=== PATIENT | male | born 1955 | race Caucasian/White ===

== ENCOUNTER 2023-02-08 07:51 | Outpatient (OUT) | payer MEDICARE, OTHER, SELFPAY ==
[2023-02-08 08:46] LABS: Basophils Percent Auto 0.4 % (0.2-2.0); Eosinophils Percent Auto 0.4 % (0.9-7.0); Hemoglobin 12.4 g/dL (14.0-18.0); Immature Granulocytes Abs Auto 0.02 10^3/uL (0.00-0.03); Immature Granulocytes Pct Auto 0.8 % (0.0-0.5); Mean Corpuscular Hemoglobin 29.6 pg (25.9-34.0); Mean Corpuscular Volume 95.5 fL (80.0-94.0); Mean Platelet Volume 9.4 fL (9.5-13.5); Monocytes Absolute Auto 0.5 10^3/uL (0.3-0.8); Monocytes Percent Auto 18.3 % (1.7-12.0); Neutrophils Absolute Auto 1.1 10^3/uL (1.4-6.5); Neutrophils Percent Auto 43.1 % (43.0-75.0); Platelet Count 168 10^3/uL (150-450); Red Blood Count 4.19 10^6/uL (4.70-6.10); Red Cell Distribution Width 13.9 % (11.0-15.0); White Blood Count 2.6 10^3/uL (4.0-11.0)
[2023-02-08 09:32] LABS: Bilirubin Urine NEGATIVE (NEGATIVE); Blood Urine NEGATIVE (NEGATIVE); Clarity Urine CLEAR (CLEAR); Color Urine YELLOW (YELLOW); Glucose Urine UA 500 mg/dL (NEGATIVE); Ketones Urine NEGATIVE (NEGATIVE); Leukocyte Esterase Urine NEGATIVE (NEGATIVE); Nitrite Urine NEGATIVE (NEGATIVE); Protein Urine TRACE mg/dL (NEG/TRACE); Specific Gravity Urine >=1.030 (1.005-1.025); Urobilinogen Urine 0.2 EU/dL (0.2-1.0); pH Urine 5.5 (5.0-9.0)
[2023-02-08 09:40] LABS: Alanine Aminotransferase 29 U/L (16-63); Albumin Globulin Ratio 1.2; Albumin Level 4.2 g/dL (3.4-5.0); Alkaline Phosphatase 55 U/L (46-116); Anion Gap 11.4; Aspartate Amino Transferase 11 U/L (15-37); BUN Creatinine Ratio 24.1; Bilirubin Total 0.7 mg/dL (0.2-1.0); Calcium 8.7 mg/dL (8.5-10.1); Carbon Dioxide 24.7 mmol/L (21.0-32.0); Chloride 106 mmol/L (98-107); Chol HDL Ratio 3.6; Cholesterol 135 mg/dL (<=200); Estimated GFR (African America >60 (>=60); Estimated GFR (Non-African Ame >60 (>=60); Globulin 3.6 g/dL; Glucose 132 mg/dL (74-106); HDL Cholesterol 38 mg/dL (40-60); Microalbumin Urine Random 7.4 mg/dL (<=30.0); Potassium 4.1 mmol/L (3.5-5.1); Sodium 138 mmol/L (136-145); Total Protein 7.8 g/dL (6.4-8.2); Triglycerides 108 mg/dL (<=150); VLDL CHOLESTEROL 21.6 mg/dL
[2023-02-08 09:45] LABS: Estimated Average Glucose 163 mg/dL; Glycohemoglobin A1C 7.3 % (4.5-6.2)
[2023-02-08 09:59] LABS: Bacteria Urine NONE SEEN #/HPF (NONE SEEN); Crystals Seen? None Seen #/HPF (None Seen); Mucus Urine NONE SEEN (NONE SEEN); RBC Urine NONE SEEN #/HPF (0-2); Squamous Epithelial Cell Urine FEW #/LPF (NONE/RARE); WBC Urine NONE SEEN #/HPF (NONE SEEN)
[2023-02-08 10:00] LABS: Cast Seen? NONE SEEN #/LPF (NONE SEEN); Urine Culture Indicated NO
[2023-02-08 10:01] LABS: Prostate Specific Antigen Scrn 0.95 ng/mL (<=4.00)
== END 2023-02-08 07:52 | disposition home or self-care (01) ==
LOC: LAB 07:57
PROVIDERS: PCP Nurse Practitioner; Visit Provider Nurse Practitioner
DX: E11.9 Type 2 diabetes mellitus without complications (principal); Z12.5 Encounter for screening for malignant neoplasm of prostate
CPT/HCPCS: 36415; 80053; 80061; 81001; 82043; 83036; 85025; G0103

== ENCOUNTER 2023-02-08 08:02 | Outpatient (OUT) | payer MEDICARE, OTHER, SELFPAY ==
[2023-02-08 09:42] LABS: Lactate Dehydrogenase 160 U/L (85-227)
== END 2023-02-08 08:03 | disposition home or self-care (01) ==
LOC: LAB 08:04
PROVIDERS: PCP Nurse Practitioner
DX: E11.9 Type 2 diabetes mellitus without complications (principal); Z12.5 Encounter for screening for malignant neoplasm of prostate; C85.19 Unspecified B-cell lymphoma, extranodal and solid organ sites; D72.819 Decreased white blood cell count, unspecified
CPT/HCPCS: 36415; 80053; 80061; 81001; 82043; 83036; 83615; 85025; G0103

== ENCOUNTER 2023-10-11 08:51 | Outpatient (OUT) | payer MEDICARE, OTHER, SELFPAY ==
[2023-10-11 12:53] LABS: Estimated Average Glucose 183 mg/dL
== END 2023-10-11 08:52 | disposition home or self-care (01) ==
LOC: LAB 08:53
PROVIDERS: PCP Nurse Practitioner; Visit Provider Nurse Practitioner
DX: E11.9 Type 2 diabetes mellitus without complications (principal)
CPT/HCPCS: 36415; 83036

== ENCOUNTER 2023-10-29 08:08 | Outpatient (OUT) | payer MEDICARE, OTHER, SELFPAY ==
--- NOTE | 2023-10-29 08:10 | MR_ITS ---
The [address] [address] Patient Name: DIMPLE FARFAN MRN: [id number] date: 1955 Sex: M Assigned Patient Location: MRI Current Patient Location: MRI Accession/Order Number: [id number] Exam Date: 10/29/2023 08:50 Report Date: 10/29/2023 15:57 At the request of: MARI CARRERA Procedure: MR knee RT wo con EXAM: MR knee RT wo con REASON FOR EXAM: Posterior Right Knee Pain M25.561. TECHNIQUE: Multiplanar, multisequence imaging of the right knee was performed without contrast COMPARISON: None. FINDINGS: Laterally, the iliotibial band, fibular collateral ligament, popliteus tendon and biceps tendon are intact. The ACL appears intact with advanced intermediate signal as well as intrasubstance ganglion cystic changes. No tear identified. The lateral meniscus demonstrates normal morphology with some globular intrasubstance signal, which does not meet MRI criteria for tear. Low to intermediate grade chondrosis of the lateral compartment with marginal osteophytes. Medially, the medial collateral ligament is intact. The PCL is intact with mild thickening and intermediate signal. There is free edge fraying of the body posterior horn the lateral meniscus. Near complete radial tear of the posterior horn root attachment the medial meniscus. Moderate meniscal extrusion. Diffuse intermediate to high-grade chondrosis of the medial compartment. The extensor mechanism is intact. Low to intermediate grade chondrosis the patellofemoral cartilage. The bone marrow signal is without fracture. Moderate size joint effusion decompresses into a Meza's cyst. The regional musculature is without muscle strain or tendon tear. MR/MR knee RT wo con IMPRESSION: 1. Complex medial meniscal tear. 2. Advanced mucoid degeneration/intrasubstance ganglion cystic changes of the ACL. Mild mucoid degeneration the PCL. No tear. 3. 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 4. Joint effusion and Meza's cyst Electronically authenticated by: SLAVA HESS Date: 10/29/2023 15:57
--- OUTSIDE RECORDS SUMMARY | 2023-10-29 08:10 | XMS_ITS | CCD ---
Author Organization [facility] Care Team Providers Care Numerical Analysis Group Manager Name Role Phone Nadir Naylor Unavailable Unavailable Norbert Rivera Unavailable Unavailable Nadir Naylor Unavailable Unavailable MD Jac Dixon Attending Provider MD Nadir Naylor Referring Provider NON STAFF Primary Care Provider Unavailabl e RADHA HILLA Velma Primary Care Physician MD Jac Dixon Attending Provider MD Nadir Naylor Referring Provider NON STAFF Primary Care Provider Unavailabl e AICHHOLZ, MEDICINE ASSISTANT ERENDIRA Consulting Unavailable AICHHOLZ, MEDICINE ASSISTANT ERENDIRA Attending Unavailable AICHHOLZ, MEDICINE ASSISTANT ERENDIRA Admitting Unavailable AICHHOLZ, MEDICINE ASSISTANT ERENDIRA Primary Care Unavailable AICHHOLZ, MEDICINE ASSISTANT ERENDIRA Primary Care Unavailable AICHHOLZ, MEDICINE ASSISTANT ERENDIRA Consulting Unavailable AICHHOLZ, MEDICINE ASSISTANT ERENDIRA Attending Unavailable AICHHOLZ, MEDICINE ASSISTANT ERENDIRA Admitting Unavailable AICHHOLZ, MEDICINE ASSISTANT ERENDIRA Primary Care Unavailable FERN, AHMAD Admitting Unavailable FERN, AHMAD Consulting Unavailable FERN, AHMAD Attending Unavailable NILL ., DR MILLER Admitting Unavailable NILL ., DR MILLER Consulting Unavailable NILL ., DR MILLER Attending Unavailable AICHHOLZ, MEDICINE ASSISTANT EREDNIRA Primary Care Unavailable NANY ORTIZ Consulting Unavailable ADELE JOHNSON Consulting Unavailable DAMSCHRODER, LYNN Attending Unavailable AICHHOLZ, MEDICINE ASSISTANT ERENDIRA Primary Care Unavailable LYNN GARCIA Admitting Unavailable LYNN GARCIA Consulting Unavailable AICHHOLZ, MEDICINE ASSISTANT ERENDIRA Consulting Unavailable AICHHOLZ, MEDICINE ASSISTANT ERENDIRA Attending Unavailable AICHHOLZ, MEDICINE ASSISTANT ERENDIRA Admitting Unavailable AICHHOLZ, MEDICINE ASSISTANT ERENDIRA Primary Care Unavailable Dr. Nadir Naylor Attending Unavail able PCP, Pt States None Referring Unavailable UNKNOWN, PCP Primary Care Unavailable UNKNOWN, PCP Primary Care Unavailable Rolando, Dr. Nadir Gutierrez Attending Unavail able PCP, Pt States None Referring Unavailable Rolando, Dr. Nadir Gutierrez Referring Unavail able SELENA CALDWELL Attending Unavailable UNKNOWN, PCP Primary Care Unavailable Nadir Naylor Referring Unavailable NON STAFF Primary Care Unavailable Jac Dixon R Attending Unavailable DestinyJaja aguileraleena R Admitting Unavailable Miguel PINO R Attending Unavailable PINOMiguel R Attending Unavailable NILL, Angela R Attending Unavailable NILL, Angela R Attending Unavailable AICHHOLZ, ERENDIRA Attending Unavailable AICHHOLZ, ERENDIRA Attending Unavailable RUSLIAT OBANDO S Attending Unavailable AICHHOLZ, ERENDIRA Attending Unavailable Allergies Allergy Classification Reported Allergen(s) Allergy Type Date of Onset Reaction(s) Facility Unclassified (1 source) Propensity to adverse reactions to drug 1 [facility] Unclassified (1 source) Propensity to adverse reactions to drug 1 [facility] (1 source) Propensity to adverse reactions to drug 1 [facility] (1 source) Propensity to adverse reactions to drug 1 [facility] (1 source) Propensity to adverse reactions to drug 1 [facility] (1 source) Propensity to adverse reactions to drug 1 [facility] (3 sources) Sulfonamides (Antibiotic); Translations: [sulfa drugs] Drug allergy Sweating (finding), Fatigue (finding) [facility] (1 source) Propensity to adverse reactions to drug 1 [facility] (1 source) Propensity to adverse reactions to drug 1 [facility] (1 source) Sulfonamides (Antibiotic) Drug allergy (disorder) 7 [facility] (1 source) Propensity to adverse reactions to drug 1 [facility] (1 source) Sulfonamides (Antibiotic) Drug allergy (disorder) 3 [facility] Repository Medications Current Medications Medication Drug Class(es) Dates Sig (Normalized) Sig (Original) aspirin 81 mg oral tablet (11 sources) Platelet Aggregation Inhibitor, Nonsteroidal Anti-inflammatory Drug Start: 11-02-2020 [id number] Medication aspirin aspirin 300 mg 11/02/2020 Active (Outside) Start: 02-15-2020 take 1 tablet by mouth once da kathrine aspirin 81 mg oral tablet 81 mg = 1 tab(s), Oral, Daily Start Date: 02/15/20 Status: Ordered atorvastatin 20 mg oral tablet (11 sources) HMG-CoA Reductase Inhibitor Start: 10-17-2021 take 20 mg by mouth once daily Atorvastatin Active 20 MG PO Daily October 17, 2021 12:51pm Start: 11-02-2020 [id number] Medicat ion atorvastatin atorvastatin 40 mg 11/02/2020 Active (Outside) Start: 02-15-2020 take 1 tablet by justine th once daily atorvastatin 10 mg Tab 10 mg = 1 tab(s), Oral, Daily Start Date: 02/15/20 Status: Ordered dapagliflozin 5 mg oral tablet (11 sources) Sodium-Glucose Cotransporter 2 Inhibitor Start: 11-02-2020 take 1 tablet by mouth once daily Dapagliflozin (Farxiga) 5 mg Tablet Active 5 MG PO Daily October 16, 2021 11:00pm Start: 02-15-2020 take 1 tablet by mouth once da kathrine Farxiga 10 mg oral tablet 10 mg = 1 tab(s), Oral, Daily Start Date: 02/15/20 Status: Ordered ezetimibe 10 mg oral tablet (10 sources) Dietary Cholesterol Absorption Inhibitor Start: 11-02-2020 take 10 mg by mouth once daily Ezetimibe Active 10 MG PO Daily October 16, 2021 11:00pm Start: 02-15-2020 take 40 mg by mouth once daily ezetimibe 40 mg, Oral, Daily Start Date: 02/15/20 Status: Ordered finasteride 5 mg oral tablet (11 sources) 5-alpha Reductase Inhibitor Start: 11-02-2020 take 1 tablet by mouth once daily finasteride 5 mg Tab 5 mg = 1 tab(s), Oral, Daily, # 90 tab(s), Refills(s) 3, Pharmacy: [facility], 183, cm, 02/19/22 9:42:00 EDT, Height/Length Dosing, 89, kg, 02/19/22 9:42:00 EDT, Weight Dosing Start Date: 06/13/22 Status: Ordered ketoconazole 20 mg/ml medicated shampoo (7 sources) Azole Antifungal Start: 02-26-2023 [id number] Medica tion ketoconazole 2 % shampoo ketoconazole 2 % shampoo 2 % 0 other 02/26/2023 Active (Current) Start: 10-17-2021 Ketoconazole A ctive 1 APPLIC TOPICAL Twice a Week October 17, 2021 12:51pm Start: 09-12-2021 [id number] Medicat ion ketoconazole 2 % shampoo ketoconazole 2 % shampoo 2 % 1 Application topically daily 09/12/2021 Active (Current) lisinopril 20 mg oral tablet (11 sources) Angiotensin Converting Enzyme Inhibitor Start: 11-02-2020 take 20 mg by mouth once daily Lisinopril Active 20 MG PO Daily October 16, 2021 11:00pm Start: 02-15-2020 take 40 mg by mouth once daily lisinopril 40 mg, Oral, Daily Start Date: 02/15/20 Status: Ordered metFORMIN hydrochloride 1000 mg oral tablet (2 sources) Biguanide Start: 02-19-2022 take 1000 mg by mouth twice daily metformin 1,000 mg, Oral, BID, Refills(s) 0 Start Date: 02/19/22 Status: Ordered Start: 02-19-2022 metformin Oral , Refills(s) 0 Start Date: 02/19/22 Status: Ordered metFORMIN hydrochloride 1000 mg / SITagliptin 50 mg oral tablet (10 sources) Biguanide, Dipeptidyl Peptidase 4 Inhibitor Start: 10-17-2021 take 1 tablet by mouth twice daily Sitagliptin-Metformin (Janumet) 50-1,000 mg Tablet Active 1 TAB PO Twice daily October 17, 2021 12:51pm Start: 11-02-2020 [id number] Medicat ion sitagliptin 50 mg-metformin 500 mg tablet Janumet 50-500 mg 11/02/2020 Active (Outside) Start: 02-15-2020 Janumet 50 mg/ 1000 mg oral tablet 1 tab(s), Oral Start Date: 02/15/20 Status: Ordered pioglitazone 30 mg oral tablet (2 sources) Peroxisome Proliferator Receptor alpha Agonist, Peroxisome Proliferator Receptor gamma Agonist, Thiazolidinedione Start: 02-19-2022 take 30 mg by mouth once daily pioglitazone 30 mg, Oral, Daily, Refills(s) 0 Start Date: 02/19/22 Status: Ordered Start: 02-19-2022 pioglitazone O ral, Daily, Refills(s) 0 Start Date: 02/19/22 Status: Ordered tadalafil 20 mg oral tablet (2 sources) Phosphodiesterase 5 Inhibitor Start: 02-19-2022 tadalafil 20 mg Tab 20 mg = 1 tab(s), Oral, As Directed, # 30 tab(s), Refills(s) 3, Pharmacy: [id number], 183, cm, 02/19/22 9:42:00 EDT, Height/Length Dosing, 89, kg, 02/19/22 9:42:00 EDT, Weight Dosing Start Date: 02/19/22 Status: Ordered tamsulosin hydrochloride 0.4 mg oral capsule (11 sources) alpha-Adrenergic Hansel Start: 11-02-2020 take 1 capsule by mouth once daily tamsulosin 0.4 mg Cap 0.4 mg = 1 cap(s), Oral, Daily, # 90 cap(s), Refills(s) 3, Pharmacy: [facility], 183, cm, 02/19/22 9:42:00 EDT, Height/Length Dosing, 89, kg, 02/19/22 9:42:00 EDT, Weight Dosing Start Date: 06/13/22 Status: Ordered Problems Problem Classification Problem Date Documented Date Episodic/Chronic Diabetes mellitus without complication (7 sources) Diabetes mellitus; Translations: [Type 2 diabetes mellitus without complications] Onset: 07-17-2022 02-11-2020 Chronic Diabetes mellitus without complication (3 sources) Glycosuria; Translations: [Glycosuria] Onset: 02-19-2022 Episodic Diseases of white blood cells (5 sources) Leukopenia; Translations: [Decreased white blood cell count, unspecified] Onset: 08-13-2022 10-19-2022 Chronic Disorders of lipid metabolism (6 sources) Hypercholesterolemia; Translations: [Hyperlipidemia] Onset: 01-13-2022 02-11-2020 Chronic Diverticulosis and diverticulitis (1 source) Diverticulosis of large intestine without perforation or abscess without bleeding; Translations: [DVRTCLOS LG INT NO PERF/ABSC W/O BL] Onset: 11-15-2022 Chronic Essential hypertension (4 sources) Hypertensive disorder; Translations: [Essential (primary) hypertension] Onset: 11-15-2022 02-11-2020 Chronic Genitourinary symptoms and ill-defined conditions (2 sources) Blood in urine 02-11-2020 Episodic Hyperplasia of prostate (4 sources) Benign prostatic hypertrophy with outflow obstruction; Translations: [Benign prostatic hyperplasia with lower urinary tract symptoms] Onset: 02-19-2022 Chronic Inflammatory conditions of male genital organs (2 sources) Prostatitis 02-11-2020 Episodic Malaise and fatigue (1 source) Other fatigue; Translations: [OTHER FATIGUE] Onset: 09-21-2022 Episodic Neoplasms of unspecified nature or uncertain behavior (20 sources) Neoplasm of uncertain behavior of skin Onset: 11-02-2020 Episodic Non-Hodgkin`s lymphoma (20 sources) Unspecified B-cell lymphoma, unspecified site; 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] Onset: 05-31-2021 10-19-2021 Chronic Other aftercare (1 source) nursing home (current) use of aspirin; Translations: [[facility] CURRENT USE OF ASPIRIN] Onset: 11-15-2022 Episodic Other aftercare (1 source) Other intermediate (current) drug therapy; Translations: [[employer] CURRENT DRUG THERAPY] Onset: 11-15-2022 Episodic Other aftercare (1 source) nursing home (current) use of oral hypoglycemic drugs; Translations: [[facility] USE ORAL HYPOGLYCEMIC DX] Onset: 11-15-2022 Episodic Other and unspecified benign neoplasm (6 sources) Hemangioma of skin and subcutaneous tissue Onset: 08-16-2021 Episodic Other and unspecified benign neoplasm (4 sources) Melanocytic nevi of unspecified part of face Onset: 09-17-2022 Episodic Other and unspecified benign neoplasm (3 sources) Melanocytic nevi of trunk Onset: 09-18-2022 Episodic Other and unspecified benign neoplasm (2 sources) Melanocytic nevi of unspecified upper limb, including shoulder Onset: 09-18-2022 Episodic Other and unspecified benign neoplasm (2 sources) Other benign neoplasm of skin, unspecified Onset: 09-18-2022 Episodic Other and unspecified benign neoplasm (1 source) Melanocytic nevi of right upper limb, including shoulder Onset: 03-12-2023 Episodic Other and unspecified benign neoplasm (1 source) Melanocytic nevi of left upper limb, including shoulder Onset: 03-12-2023 Episodic Other inflammatory condition of skin (20 sources) Seborrhea capitis Onset: 09-11-2021 Episodic Other inflammatory condition of skin (5 sources) Seborrheic dermatitis, unspecified Onset: 09-12-2021 Episodic Other male genital disorders (3 sources) Male erectile dysfunction, unspecified; Translations: [Erectile dysfunction] Onset: 02-19-2022 Chronic Other non-epithelial cancer of skin (2 sources) Personal history of other malignant neoplasm of skin Onset: 09-18-2022 Episodic Other nutritional; endocrine; and metabolic disorders (1 source) Overweight in adulthood with body mass index of 25 or more but less than 30 10-30-2022 Episodic Other screening for suspected conditions (not mental disorders or infectious disease) (16 sources) Encounter for screening for malignant neoplasm of skin; Translations: [Screening for malignant neoplasm of colon done] Onset: 08-16-2021 Episodic Other skin disorders (15 sources) Actinic keratosis Onset: 05-31-2021 Episodic Other skin disorders (12 sources) Other melanin hyperpigmentation Onset: 05-31-2021 Episodic Other skin disorders (6 sources) Other seborrheic keratosis Onset: 08-16-2021 Episodic Other skin disorders (6 sources) Scar conditions and fibrosis of skin Onset: 08-16-2021 Episodic Residual codes; unclassified (1 source) Family history of cancer; Translations: [Family history of malignant neoplasm of prostate] Onset: 02-19-2022 Episodic Residual codes; unclassified (4 sources) Decreased libido; Translations: [DECREASED LIBIDO] Onset: 09-17-2022 Episodic Unclassified (1 source) Patient encounter status 10-30-2022 Unclassified (1 source) Unspecified B-cell lymphoma, extranodal and solid organ sites; Translations: [Unspecified B-cell lymphoma, extranodal and solid organ sites] Onset: 02-14-2023 Results Test Name Value Interpretation Reference Range Facility Lab Report[facility] 02-27-2023 Lab Reports [id number] D:127 [facility] Ambulatory Visit Summaryon 0 02-25-2023 Ambulatory Visit Summary MACARIO FARFAN :1955 Visit Date:02/25/2023 Ambulatory Visit Instructions Your Diagnosis BPH with urinary obstruction Glucosuria Erectile dysfunction Family history of prostate cancer Tests Performed Urnls Dip Stick Auto w/o Microscopy POC 19823 Your Care Team Attending Physician - Miguel PINO MD Primary Care Physician - ERENDIRA HILL CNP This Is Your Medications List finasteride (finasteride 5 mg Tab) tamsulosin (tamsulosin 0.4 mg Cap) Contact prescribing physician if questions or concerns aspirin (aspirin 81 mg oral tablet) atorvastatin (atorvastatin 10 mg Tab) dapagliflozin (Farxiga 10 mg oral tablet) ezetimibe (ezetimibe 10 mg Tab) lisinopril metformin pioglitazone tadalafil (tadalafil 20 mg Tab) Procedures Performed Cystoscopy (05/02/2010), CE - Cataract extraction, Colonoscopy, LASIK, Meniscal repair, Nasal polypectomy, Nasal polypectomy, Ts - Tonsillectomy. Discharge Vitals Heart Rate (Peripheral) 70 Respiratory Rate 16 Blood Pressure 122/84 Height 183 cm Height 72 in Weight 91.5 kg Weight 201.3 lb BMI 27.32 What to do next Scheduled Follow-Up Appointments Saturday 9:15 AM EDT With: MARILIN RUIZ, Miguel Perez Where: [facility] Patient Educationon 02-26-20 Patient Education Urology Benign Prostatic Hyperplasia Benign prostatic hyperplasia (BPH) is an enlarged prostate gland that is caused by the normal aging process. The prostate may get bigger as a man gets older. The condition is not caused by cancer. The prostate is a walnut-sized gland that is involved in the production of semen. It is located in front of the rectum and below the bladder. The bladder stores urine. The urethra carries stored urine out of the body. An enlarged prostate can press on the urethra. This can make it harder to pass urine. The buildup of urine in the bladder can cause infection. Back pressure and infection may progress to bladder damage and kidney (renal) failure. What are the causes? This condition is part of the normal aging process. However, not all men develop problems from this condition. If the prostate enlarges away from the urethra, urine flow will not be blocked. If it enlarges toward the urethra and compresses it, there will be problems passing urine. What increases the risk? This condition is more likely to develop in men older than 50 years. What are the signs or symptoms? Symptoms of this condition include: ? Getting up often during the night to urinate. ? Needing to urinate frequently during the day. ? Difficulty starting urine flow. ? Decrease in size and strength of your urine stream. ? Leaking (dribbling) after urinating. ? Inability to pass urine. This needs immediate treatment. ? Inability to completely empty your bladder. ? Pain when you pass urine. This is more common if there is also an infection. ? Urinary tract infection (UTI). How is this diagnosed? This condition is diagnosed based on your medical history, a physical exam, and your symptoms. Tests will also be done, such as: ? A post-void bladder scan. This measures any amount of urine that may remain in your bladder after you finish urinating. ? A digital rectal exam. In a rectal exam, your health care provider checks your prostate by putting a lubricated, gloved finger into your rectum to feel the back of your prostate gland. This exam detects the size of your gland and any abnormal lumps or growths. ? An exam of your urine (urinalysis). ? A prostate specific antigen (PSA) screening. This is a blood test used to screen for prostate cancer. ? An ultrasound. This test uses sound waves to electronically produce a picture of your prostate gland. Your health care provider may refer you to a specialist in kidney and prostate diseases (urologist). How is this treated? Once symptoms begin, your health care provider will monitor your condition (active surveillance or watchful waiting). Treatment for this condition will depend on the severity of your condition. Treatment may include: ? Observation and yearly exams. This may be the only treatment needed if your condition and symptoms are mild. ? Medicines to relieve your symptoms, including: ? Medicines to shrink the prostate. ? Medicines to relax the muscle of the prostate. ? Surgery in severe cases. Surgery may include: ? Prostatectomy. In this procedure, the prostate tissue is removed completely through an open incision or with a laparoscope or robotics. ? Transurethral resection of the prostate (TURP). In this procedure, a tool is inserted through the opening at the tip of the penis (urethra). It is used to cut away tissue of the inner core of the prostate. The pieces are removed through the same opening of the penis. This removes the blockage. ? Transurethral incision (TUIP). In this procedure, small cuts are made in the prostate. This lessens the prostate's pressure on the urethra. ? Transurethral microwave thermotherapy (TUMT). This procedure uses microwaves to create heat. The heat destroys and removes a small amount of prostate tissue. ? Transurethral needle ablation (TUNA). This procedure uses radio frequencies to destroy and remove a small amount of prostate tissue. ? Interstitial laser coagulation (ILC). This procedure uses a laser to destroy and remove a small amount of prostate tissue. ? Transurethral electrovaporization (TUVP). This procedure uses electrodes to destroy and remove a small amount of prostate tissue. ? Prostatic urethral lift. This procedure inserts an implant to push the lobes of the prostate away from the urethra. Follow these instructions at home: ? Take wqvi-[id number] and prescription medicines only as told by your health care provider. ? Monitor your symptoms for any changes. Contact your health care provider with any changes. ? Avoid drinking large amounts of liquid before going to bed or out in public. ? Avoid or reduce how much caffeine or alcohol you drink. ? Give yourself time when you urinate. ? Keep all follow-up visits. This is important. Contact a health care provider if: ? You have unexplained back pain. ? Your symptoms do not get better with treatment. ? You develop side effects from the medicine (more content not included)... Normal [facility] Urology Office/Clinic Noteon 02-25-2023 Urology Office/Clinic Note Chief Complaint BPH with urinary obstruction HPI Staff 1 year with PSA. Previous dx of BPH with urinary obstruction, glucosuria, ED and family hx of prostate cancer (uncle). Previous PSA done 01/10/22 was 0.81 and current done 02/08/23 is 0.95. Finasteride 5mg therapy QD and Tamsulosin 0.4mg QD. Pt needs his medications refilled. Dysuria: no Incomplete bladder emptying: no Hematuria: no Frequency: no Urgency: no Nocturia: pt usually does not get up Stream: no straining or intermittency Leaking: no Post void dripping: no Wearing pads/ Depends: no Urge incontinence: no Stress incontinence: no Incontinence without Sensory Awareness: no Abdominal pain: no Flank pain: no Sexual complaints: no History of Present Illness Tests reviewed: reviewed UA, PSA I have reviewed the previous health record information and history for this patient from Dr. Pino. I have reviewed and verified the staff HPI to be accurate for this encounter. There have been no associated fever, chills, flank pain, or blood in the urine. Denies any urinary infections since last encounter. Review of Systems PHQ Score Initial Depression Screen Score: 0 ROS - Provider Constitutional: denies weight loss, denies hot flashes. Eyes: denies eye problems. Gastrointestinal: denies nausea, denies vomiting. Cardiovascular: denies chest pain or angina. Integumentary: no dryness Musculoskeletal: denies musculoskeletal symptoms. ENMT: denies otolaryngeal symptoms. Respiratory: no shortness of breath. Heme/Lymph: denies easy bleeding tendency, denies easy bruising tendency. Psychiatric: no confusion, no anxiety. Genitourinary: See HPI. Physical Exam Vitals & Measurements HR: 70(Peripheral) RR: 16 BP: 122/84 HT: 72 in HT: 183 cm WT: 91.5 kg WT: 201.3 lb BMI: 27.32 General Appearance: alert, no distress, well nourished, well developed male. Genitourinary: normal scrotum, normal testes, normal urethra, normal epididymis, normal vas deferens/spermatic cord. Flank Pain: none. Bladder: nonpalpable. Assessment/Plan 1. BPH with urinary obstruction (N40.1: Benign prostatic hyperplasia with lower urinary tract symptoms) Good, steady stream. UA today negative for blood and infection. PSA 12/08/20 - 0.50 01/10/22- 0.81 (Finasteride effect = 1.62) 02/08/23 - 0.95 (Finasteride effect = 1.90) Pt is currently taking Tamsulosin 0.4mg QD and Finasteride 5mg QD. Pt to continue these medications and call if he needs refills. All questions/concerns were discussed. Pt to call the office if he encounters any issues prior. Pt acknowledges understanding. 2. Glucosuria (R81: Glycosuria) UA done today shows 500mg/dl today. Chronic. Patient is diabetic. 3. Erectile dysfunction (N52.9: Male erectile dysfunction, unspecified) Pt is currently taking Tadalafil 20mg PRN. 4. Family history of prostate cancer (Z80.42: Family history of malignant neoplasm of prostate) Uncle, was dx in his 80's. Had prostatectomy. [1] Follow-up With When Contact Information MARILIN RUIZ, Miguel Perez, URL [facility] [address], [place] [address]- [phone] Additional Instructions: 1 yr w/ PSA Patient Education Benign Prostatic Hyperplasia IPrema, personally scribed for Dr. Pino on 02/25/2023 09:28:50. . Documentation recorded by the scribePrema, accurately reflects the services(s) I performed and decisions made by me. Authenticated by Dr. Pino on 02/25/2023 09:31:03. Problem List/Past Medical History Ongoing BMI 27.0-27.9,adult BPH with urinary obstruction Diabetes Erectile dysfunction Family history of prostate cancer Glucosuria Hematuria Hypercholesterolemia Hyperlipidemia Hypertension Hypertensive disorder Leukopenia Primary cutaneous B-cell lymphoma Prostatitis Screening for malignant neoplasm of colon Historical High cholesterol Procedure/Surgical History Cystoscopy (05/02/2010), CE - Cataract extraction, Colonoscopy, LASIK, Meniscal repair, Nasal polypectomy, Nasal polypectomy, Ts - Tonsillectomy. Medications aspirin 81 mg oral tablet, 81 mg= 1 tab(s), Oral, Daily atorvastatin 10 mg Tab, 10 mg= 1 tab(s), Oral, Daily ezetimibe 10 mg Tab Farxiga 10 mg oral tablet, 10 mg= 1 tab(s), Oral, Daily finasteride 5 mg Tab, 5 mg= 1 tab(s), Oral, Daily, 3 refills lisinopril, 40 mg, Oral, Daily metformin, 1000 mg, Oral, BID pioglitazone, 30 mg, Oral, Daily tadalafil 20 mg Tab, 20 mg= 1 tab(s), Oral, As Directed, 3 refills tamsulosin 0.4 mg Cap, 0.4 mg= 1 cap(s), Oral, Daily, 3 refills Allergies sulfa drugs (Sweats, Fatigue) Social History Alcohol - Denies Alcohol Use, 10/30/2022 Substance Abuse - Denies Substance Abuse, 10/30/2022 Tobacco - Denies Tobacco Use, 02/11/2020 Never (less than 100 in lifetime) Tobacco Use:. Never Smokeless Tobacco Use:., 10/30/2022 Family History Dementia: Mother. Disorder of heart valve (more content not included)... Normal [facility] Comment on above: Result Comment: Elec tronically Signed By: Miguel PINO MD\.br\Date and Time Signed: 02/25/23 09:31 EDT\.br\Electronically Co-Signed By: Prema Hernandez\.br\Date and Time Co-Signed: 02/25/23 09:29 EDT Outside Colonoscopyon 2022 Outside Colonoscopy [id number] D:127 Normal [facility] Reminderson 11-15-2022 Reminders - From: Brittany Wallis LPN To: GSN - Clinical; Sent: 11/15/2022 10:17:55 EDT Show up: 10/14/2032 07:00:00 EST Subject: colonoscopy recall Due Date/Time: 11/14/2032 07:00:00 EDT Reminder/Recall Patient is due for screening colonoscopy 11/14/2032. Normal [facility] POINT OF CARE GLUCOSEon 11-03 Glucose [Mass/Vol] 119 mg/dL Critically high 74-[address] [facility] Comment on above: Performed By: #### P OCGLUC #### [facility] [address] [place] [address] Dr. Anil Hayes Consent for Procedure/Surger yon 10-31-2022 Consent for Procedure/Surgery [id number] D:127 [facility] Ambulatory Visit Summaryon 0 10-30-2022 Ambulatory Visit Summary MACARIO FARFAN :1955 Visit Date:10/30/2022 Ambulatory Visit Instructions Your Diagnosis Screening for malignant neoplasm of colon Your Care Team Attending Physician - CARMEL RUIZ, Angela Perez Primary Care Physician - ERENDIRA HILL CNP This Is Your Medications List Contact prescribing physician if questions or concerns aspirin (aspirin 81 mg oral tablet) atorvastatin (atorvastatin 10 mg Tab) dapagliflozin (Farxiga 10 mg oral tablet) finasteride (finasteride 5 mg Tab) lisinopril metformin pioglitazone tadalafil (tadalafil 20 mg Tab) tamsulosin (tamsulosin 0.4 mg Cap) Procedures Performed Cystoscopy (05/02/2010), CE - Cataract extraction, Colonoscopy, LASIK, Meniscal repair, Nasal polypectomy, Nasal polypectomy, Ts - Tonsillectomy. Discharge Vitals Heart Rate (Peripheral) 80 Respiratory Rate 16 Blood Pressure 142/86 Height 183 cm Height 72 in Weight 92.7 kg Weight 203.94 lb BMI 27.68 What to do next Scheduled Follow-Up Appointments Saturday 9:15 AM EDT With: MARILIN RUIZ, Miguel Perez Where: [facility] Dermatopathologyon Dermatopathology Name MACARIO FARFAN. Pathologist: SELENA CALDWELL MD Date of Procedure: 09/18/2022 Date Received: 09/19/2022 Date Reported 09/20/2022 Submitting Physician: NADIR NAYLOR MD Location: [facility] Copy To/Referring/Attending: BERT ALCARAZ D.O Other External # FINAL DIAGNOSIS SKIN, RIGHT MID BACK, SHAVE BIOPSY: PIGMENTED SEBORRHEIC KERATOSIS OVERLYING A DERMAL MELANOCYTIC NEVUS (SEE COMMENT): Comment: The bulk of the bisected specimen reveals banal-appearing epidermal acanthosis with anastomosing of rete and pseudo horn cysts with increased melanin pigment consistent with a pigmented seborrheic keratosis. On one half of the bisected specimen, there is an underlying banal-appearing dermal melanocytic proliferation that extends to the deep margin. Electronically Signed Out by SELENA CALDWELL MD. Electronically Signed Out By SELENA CALDWELL MD/DAVR By the signature on this report, the individual or group listed as making the Final Interpretation/Diagnosi s certifies that they have reviewed this case. Diagnostic interpretation performed at [facility] [address] [place] [address], [place] [address] Microscopic Description: Microscopic examination performed. Clinical History: Irregular brown papule w/reticulated appearance on dermoscopy. SK vs. melanoma. Shave biopsy. ([facility]) Specimens Submitted As: A: SKIN, RIGHT MID BACK Gross Description: Received in formalin is one armenta-brown piece of skin measuring 7 x 5 x 1 mm. Inked and embedded in toto. mlz/09/19/2022 [facility] [address] [address] Normal [facility] Comment on above: Performed By: #### D #### Dermatopathology FSHon 09-18-2022 FSH 13.4 mIU/mL Critically high 1.5-12.4 [facility] Comment on above: Performed By: #### C BC, RETIC #### [facility] [address] [place] [address] Dr. Anil Hayes LUTEINIZING HORMONE (LH)on 0 09-18-2022 LH 7.9 mIU/mL Normal 1.7-8.6 [facility] Comment on above: Performed By: #### C BC, RETIC #### [facility] [address] [place] [address] [address] Anil Hayes PROLACTINon 09-18-2022 Prolactin 5.1 ng/mL Normal 4.0-15.2 [facility] Comment on above: Performed By: #### P ROLAC #### [facility] [address] [place] [address] [address] Anil Hayes SEX HORMONE-BINDING GLOBULIN on 09-18-2022 Sex Horm Binding Glob, Serum 22.0 nmol/L Normal 19.3-76.4 [facility] Comment on above: Performed By: #### C BC, RETIC #### [facility] [address] [place] [address] Dr. Anil Hayes TESTOSTERONE, TOTALon 2022 Testosterone [Mass/Vol] 313 ng/dL Normal 264-916 [facility] Comment on above: Result Comment: Adul t male reference interval is based on a population of healthy nonobese males (BMI <30) between 19 and 39 years old. Troy et.al. JCEM 2017,102;6147-6041. PMID: [id number]. Performed By: #### C BC, RETIC #### [facility] [address] [place] [address] Dr. Anil Hayes CBC AUTO DIFFon 08-13-2022 BASO # 0.0 103/ul Normal 0.0-0.1 [facility] Comment on above: Performed By: #### C BC, RETIC #### [facility] [address] [place] [address] Dr. Anil Hayes Basophils/100 WBC (Bld) 0.3 % Normal 0.2-2.0 [facility] Comment on above: Performed By: #### C BC, RETIC #### [facility] [address] [place] [address] Dr. Anil Hayes EO # 0.0 103/ul Normal 0.0-0.7 [facility] Comment on above: Performed By: #### C BC, RETIC #### [facility] [address] [place] [address] Dr. Anil Hayes Eosinophils/100 WBC (Bld) 0.6 % Critically low 0.9-7.0 [facility] Comment on above: Performed By: #### C BC, RETIC #### [facility] [address] [place] [address] Dr. Anil Hayes Erythrocyte distribution width (RBC) [Ratio] 13.9 % Normal 11.0-15.0 [facility] Comment on above: Performed By: #### C BC, RETIC #### [facility] [address] [place] [address] Dr. Anil Hayes Hematocrit (Bld) [Volume fraction] 36.4 % Critically low 42.0-54.0 [facility] Comment on above: Performed By: #### C BC, RETIC #### [facility] [address] [place] [address] Dr. Anil Hayes Hemoglobin (Bld) [Mass/Vol] 12.5 g/dL Critically low 14.0-18.0 [facility] Comment on above: Performed By: #### C BC, RETIC #### [facility] [address] [place] [address] Dr. Anil Hayes IG # 0.06 10e3/ul Critically high 0.00-0.03 [facility] Comment on above: Performed By: #### C AMIANTA, RETIC #### [facility] [address] [place] [address] Dr. Anil Hayes IG % 1.8 % Critically high 0.0-0.5 [facility] Comment on above: Performed By: #### C BC, RETIC #### [facility] [address] [place] [address] Dr. Anil Hayes LYMPH # 1.1 103/ul Critically low 1.2-3.8 [facility] Comment on above: Performed By: #### C AMINATA, RETIC #### [facility] [address] [place] [address] Dr. Anil Hayes Lymphocytes/100 WBC (Bld) 31.7 % Normal 20.5-60.0 [facility] Comment on above: Performed By: #### C BC, RETIC #### [facility] [address] [place] [address] Dr. Anil Hayes MANUAL DIFF REQ NO Normal [facility] Comment on above: Performed By: #### C BC, RETIC #### [facility] [address] [place] [address] Dr. Anil Hayes MCH (RBC) [Entitic mass] 30.1 pg Normal 25.9-34.0 [facility] Comment on above: Performed By: #### C BC, RETIC #### [facility] [address] [place] [address] Dr. Anil Hayes MCHC (RBC) [Mass/Vol] 34.3 g/dL Normal 29.9-35.2 [facility] Comment on above: Performed By: #### C BC, RETIC #### [facility] [address] [place] [address] Dr. Anil Hayes MCV (RBC) [Entitic vol] 87.7 fL Normal 80.0-94.0 [facility] Comment on above: Performed By: #### C BC, RETIC #### [facility] [address] [place] [address] Dr. Anil Hayes MONO # 0.6 103/ul Normal 0.3-0.8 [facility] Comment on above: Performed By: #### C BC, RETIC #### [facility] [address] [place] [address] Dr. Anil Hayes Monocytes/100 WBC (Bld) 17.9 % Critically high 1.7-12.0 [facility] Comment on above: Performed By: #### C BC, RETIC #### [facility] [address] [place] [address] Dr. Anil Hayes NEUT # 1.6 103/ul Normal 1.4-6.5 [facility] Comment on above: Performed By: #### C BC, RETIC #### [facility] [address] [place] [address] Dr. Anil Hayes Neutrophils/100 WBC (Bld) 47.7 % Normal 43.0-75.0 [facility] Comment on above: Performed By: #### C BC, RETIC #### [facility] [address] [place] [address] Dr. Anil Hayes Platelet mean volume (Bld) [Entitic vol] 9.3 fL Critically low 9.5-13.5 [facility] Comment on above: Performed By: #### C BC, RETIC #### [facility] [address] [place] [address] Dr. Anil Hayes PLT 168 103/ul Normal 150-450 [facility] Comment on above: Performed By: #### C BC, RETIC #### [facility] [address] [place] [address] [address] Anil Hayes RBC 4.15 106/ul Critically low 4.70-6.10 [facility] Comment on above: Performed By: #### C BC, RETIC #### [facility] [address] [place] [address] [address] Anil Hayes WBC 3.4 103/ul Critically low 4.0-11.0 [facility] Comment on above: Performed By: #### C BC, RETIC #### [facility] [address] [place] [address] Dr. Anil Hayes RETICULOCYTEon 08-13-2022 RETIC 2.57 % Normal 0.60-3.10 [facility] Comment on above: Performed By: #### C BC, RETIC #### [facility] [address] [place] [address] Dr. Anil Hayes VIT B12 AND FOLATEon 023 Cobalamin (Vitamin B12) [Mass/Vol] 396.0 pg/mL Normal 193.0-986.0 [facility] Comment on above: Performed By: #### C BC, RETIC #### [facility] [address] [place] [address] Dr. Anil Hayes FOLATE 14.90 ng/mL Normal 8.60-58.90 [facility] Comment on above: Performed By: #### C BC, RETIC #### [facility] [address] [place] [address] Dr. Anil Hayes TESTOSTERONE, TOTALon 2021 Testosterone [Mass/Vol] 355 ng/dL Normal 264-916 [facility] Comment on above: Result Comment: Adul t male reference interval is based on a population of healthy nonobese males (BMI <30) between 19 and 39 years old. gayle Simmons.al. JCEM 2017,102;2471-5539. PMID: [id number]. Performed By: #### P ROLAC #### [facility] [address] [place] [address] Dr. Anil Hayes CBC AUTO DIFFon 07-17-2022 BASO # 0.0 103/ul Normal 0.0-0.1 [facility] Comment on above: Performed By: #### C BC #### [facility] [address] [place] [address] [address] Anil Hayes Basophils/100 WBC (Bld) 0.3 % Normal 0.2-2.0 [facility] Comment on above: Performed By: #### C BC #### [facility] [address] [place] [address] [address] Anil Hayes EO # 0.0 103/ul Normal 0.0-0.7 [facility] Comment on above: Performed By: #### C BC #### [facility] [address] [place] [address] Dr. Anil Hayes Eosinophils/100 WBC (Bld) 0.3 % Critically low 0.9-7.0 [facility] Comment on above: Performed By: #### C BC #### [facility] [address] [place] [address] Dr. Anil Hayes Erythrocyte distribution width (RBC) [Ratio] 13.4 % Normal 11.0-15.0 [facility] Comment on above: Performed By: #### C BC #### [facility] [address] [place] [address] Dr. Anil Hayes Hematocrit (Bld) [Volume fraction] 42.9 % Normal 42.0-54.0 [facility] Comment on above: Performed By: #### C BC #### [facility] [address] [place] [address] Dr. Anil Hayes Hemoglobin (Bld) [Mass/Vol] 13.9 g/dL Critically low 14.0-18.0 [facility] Comment on above: Performed By: #### C BC #### [facility] [address] [place] [address] [address] Anil Hayes IG # 0.05 10e3/ul Critically high 0.00-0.03 [facility] Comment on above: Performed By: #### C BC #### [facility] [address] [place] [address] Dr. Anil Hayes IG % 1.7 % Critically high 0.0-0.5 [facility] Comment on above: Performed By: #### C BC #### [facility] [address] [place] [address] Dr. Anil Hayes LYMPH # 1.1 103/ul Critically low 1.2-3.8 [facility] Comment on above: Performed By: #### C BC #### [facility] [address] [place] [address] Dr. Anli Hayes Lymphocytes/100 WBC (Bld) 37.6 % Normal 20.5-60.0 [facility] Comment on above: Performed By: #### C BC #### [facility] [address] [place] [address] Dr. Anil Hayes MANUAL DIFF REQ NO Normal [facility] Comment on above: Performed By: #### C BC #### [facility] [address] [place] [address] Dr. Anil Hayes MCH (RBC) [Entitic mass] 29.9 pg Normal 25.9-34.0 [facility] Comment on above: Performed By: #### C BC #### [facility] [address] [place] [address] Dr. Anil Hayes MCHC (RBC) [Mass/Vol] 32.4 g/dL Normal 29.9-35.2 [facility] Comment on above: Performed By: #### C BC #### [facility] [address] [place] [address] Dr. Anil Hayes MCV (RBC) [Entitic vol] 92.3 fL Normal 80.0-94.0 [facility] Comment on above: Performed By: #### C BC #### [facility] [address] [place] [address] Dr. Anil Hayes MONO # 0.4 103/ul Normal 0.3-0.8 [facility] Comment on above: Performed By: #### C BC #### [facility] [address] [place] [address] Dr. Anil Hayes Monocytes/100 WBC (Bld) 12.9 % Critically high 1.7-12.0 [facility] Comment on above: Performed By: #### C BC #### [facility] [address] [place] [address] [address] Anil Hayes NEUT # 1.4 103/ul Normal 1.4-6.5 [facility] Comment on above: Performed By: #### C BC #### [facility] [address] [place] [address] [address] Anil Hayes Neutrophils/100 WBC (Bld) 47.2 % Normal 43.0-75.0 [facility] Comment on above: Performed By: #### C BC #### [facility] [address] [place] [address] Dr. Anil Hayes Platelet mean volume (Bld) [Entitic vol] 9.3 fL Critically low 9.5-13.5 [facility] Comment on above: Performed By: #### C BC #### [facility] [address] [place] [address] Dr. Anil Hayes PLT 178 103/ul Normal 150-450 [facility] Comment on above: Performed By: #### C BC #### [facility] [address] [place] [address] Dr. Anil Hayes RBC 4.65 106/ul Critically low 4.70-6.10 [facility] Comment on above: Performed By: #### C BC #### [facility] [address] [place] [address] Dr. Anil Hayes WBC 2.9 103/ul Critically low 4.0-11.0 [facility] Comment on above: Performed By: #### C BC #### [facility] [address] [place] [address] Dr. Anil Hayes GLYCOHEMOGLOBIN A1Con 2021 ADA RECOMMENDATION SEE BELOW Normal [facility] Comment on above: Result Comment: ADA RECOMMENDED LIMIT 4.0 - 6.0 ADA THERAPEUTIC TARGET < 7.0 ACTION SUGGESTED > 7.0 Performed By: #### A 1C #### [facility] [address] [place] [address] Dr. Anil Hayes Glucose [Mass/Vol] 171 mg/dL Normal [facility] Comment on above: Performed By: #### A 1C #### [facility] [address] [place] [address] Dr. Anil Hayes HbA1c (Bld) [Mass fraction] 7.6 % Critically high 4.5-6.2 [facility] Comment on above: Performed By: #### A 1C #### [facility] [address] [place] [address] Dr. Anil Hayes IRONon 07-17-2022 Iron [Mass/Vol] 103.0 ug/dL Normal 65.0-175.0 [facility] Comment on above: Performed By: #### V ITB12, IRON #### [facility] [address] [place] [address] Dr. Anil Hayes PROF 14(COMP METB)on 022 Albumin [Mass/Vol] 4.0 g/dL Normal 3.4-5.0 [facility] Comment on above: Performed By: #### C BC, RETIC #### [facility] [address] [place] [address] Dr. Anil Hayes Albumin/Globulin [Mass ratio] 1.1 {ratio} Normal [facility] Comment on above: Performed By: #### C BC, RETIC #### [facility] [address] [place] [address] Dr. Anil Hayes ALP [Catalytic activity/Vol] 63 U/L Normal 46-116 [facility] Comment on above: Performed By: #### C BC, RETIC #### [facility] [address] [place] [address] Dr. Anil Hayes ALT [Catalytic activity/Vol] 23 U/L Normal 16-63 [facility] Comment on above: Performed By: #### C BC, RETIC #### [facility] [address] [place] [address] Dr. Anil Hayes Anion gap [Moles/Vol] 11.8 mmol/L Normal [facility] Comment on above: Performed By: #### C BC, RETIC #### [facility] [address] [place] [address] [address] Anil Hayes AST [Catalytic activity/Vol] 16 U/L Normal 15-37 [facility] Comment on above: Performed By: #### C BC, RETIC #### [facility] [address] [place] [address] [address] Anil Hayes Bilirubin [Mass/Vol] 0.5 mg/dL Normal 0.2-1.0 [facility] Comment on above: Performed By: #### C BC, RETIC #### [facility] [address] [place] [address] [address] Anil Hayes Calcium [Mass/Vol] 8.9 mg/dL Normal 8.5-10.1 [facility] Comment on above: Performed By: #### C BC, RETIC #### [facility] [address] [place] [address] Dr. Anil Hayes Chloride [Moles/Vol] 103 mmol/L Normal 98-107 [facility] Comment on above: Performed By: #### C BC, RETIC #### [facility] [address] [place] [address] Dr. Anil Hayes CO2 [Moles/Vol] 26.5 mmol/L Normal 21.0-32.0 [facility] Comment on above: Performed By: #### C BC, RETIC #### [facility] [address] [place] [address] Dr. Anil Hayes Creatinine [Mass/Vol] 0.85 mg/dL Normal 0.70-1.30 [facility] Comment on above: Performed By: #### C BC, RETIC #### [facility] [address] [place] [address] Dr. Anil Hayes EGFR-AF ECUADOREAN >60 Normal >=60 [facility] Comment on above: Performed By: #### C BC, RETIC #### [facility] [address] [place] [address] [address] Anil Hayes EGFR-NON AF ECUADOREAN >60 Normal >=60 [facility] Comment on above: Performed By: #### C BC, RETIC #### [facility] [address] [place] [address] [address] Anil Hayes Globulin (S) [Mass/Vol] 3.8 g/dL Normal [facility] Comment on above: Performed By: #### C BC, RETIC #### [facility] [address] [place] [address] [address] Anil Hayes Glucose [Mass/Vol] 141 mg/dL Critically high 74-106 [facility] Comment on above: Performed By: #### C BC, RETIC #### [facility] [address] [place] [address] [address] Anil Hayes Potassium [Moles/Vol] 4.3 mmol/L Normal 3.5-5.1 [facility] Comment on above: Performed By: #### C BC, RETIC #### [facility] [address] [place] [address] Dr. Anil Hayes Protein [Mass/Vol] 7.8 g/dL Normal 6.4-8.2 [facility] Comment on above: Performed By: #### C BC, RETIC #### [facility] [address] [place] [address] Dr. Anil Hayes Sodium [Moles/Vol] 137 mmol/L Normal 136-145 [facility] Comment on above: Performed By: #### C BC, RETIC #### [facility] [address] [place] [address] Dr. Anil Hayes Urea nitrogen [Mass/Vol] 21.0 mg/dL Critically high 7.0-18.0 [facility] Comment on above: Performed By: #### C BC, RETIC #### [facility] [address] [place] [address] Dr. Anil Hayes Urea nitrogen/Creatinine [Mass ratio] 24.7 mg/mg Normal [facility] Comment on above: Performed By: #### C BC, RETIC #### [facility] [address] [place] [address] Dr. Anil Hayes TSHon 07-17-2022 TSH 2.834 uIU/mL Normal 0.358-3.740 [facility] Comment on above: Performed By: #### C MP, TSH #### [facility] [address] [place] [address] Dr. Anil Hayes VITAMIN B12on 07-17-2022 Cobalamin (Vitamin B12) [Mass/Vol] 380.0 pg/mL Normal 193.0-986.0 [facility] Comment on above: Performed By: #### V ITB12, IRON #### [facility] [address] [place] [address] Dr. Anil Hayes CBC AUTO DIFFon 01-29-2022 BASO # 0.0 103/ul Normal 0.0-0.1 [facility] Comment on above: Performed By: #### P ROLAC #### [facility] [address] [place] [address] Dr. Anil Hayes Basophils/100 WBC (Bld) 0.6 % Normal 0.2-2.0 [facility] Comment on above: Performed By: #### P ROLAC #### [facility] [address] [place] [address] Dr. Anil Hayes EO # 0.0 103/ul Normal 0.0-0.7 [facility] Comment on above: Performed By: #### P ROLAC #### [facility] [address] [place] [address] Dr. Anil Hayes Eosinophils/100 WBC (Bld) 0.6 % Critically low 0.9-7.0 [facility] Comment on above: Performed By: #### P ROLAC #### [facility] [address] [place] [address] Dr. Anil Hayes Erythrocyte distribution width (RBC) [Ratio] 14.2 % Normal 11.0-15.0 [facility] Comment on above: Performed By: #### P ROLAC #### [facility] [address] [place] [address] Dr. Anil Hayes Hematocrit (Bld) [Volume fraction] 42.2 % Normal 42.0-54.0 [facility] Comment on above: Performed By: #### P ROLAC #### [facility] [address] [place] [address] [address] Anil Hayes Hemoglobin (Bld) [Mass/Vol] 13.4 g/dL Critically low 14.0-18.0 [facility] Comment on above: Performed By: #### P ROLAC #### [facility] [address] [place] [address] [address] Anil Hayes IG # 0.05 10e3/ul Critically high 0.00-0.03 [facility] Comment on above: Performed By: #### P ROLAC #### [facility] [address] [address] [address] Anil Hayes IG % 1.5 % Critically high 0.0-0.5 [facility] Comment on above: Performed By: #### P ROLAC #### [facility] [address] [place] [address] Dr. Anil Hayes LYMPH # 1.2 103/ul Normal 1.2-3.8 [facility] Comment on above: Performed By: #### P ROLAC #### [facility] [address] [place] [address] Dr. Anil Hayes Lymphocytes/100 WBC (Bld) 36.3 % Normal 20.5-60.0 [facility] Comment on above: Performed By: #### P ROLAC #### [facility] [address] [place] [address] Dr. Anil Hayes MANUAL DIFF REQ NO Normal [facility] Comment on above: Performed By: #### P ROLAC #### [facility] [address] [address] [address] Anil Hayes MCH (RBC) [Entitic mass] 30.0 pg Normal 25.9-34.0 [facility] Comment on above: Performed By: #### P ROLAC #### [facility] [address] [address] [address] Anil Hayes MCHC (RBC) [Mass/Vol] 31.8 g/dL Normal 29.9-35.2 [facility] Comment on above: Performed By: #### P ROLAC #### [facility] [address] [address] [address] Anil Hayes MCV (RBC) [Entitic vol] 94.4 fL Critically high 80.0-94.0 [facility] Comment on above: Performed By: #### P ROLAC #### [facility] [address] [place] [address] Dr. Anil Hayes MONO # 0.4 103/ul Normal 0.3-0.8 [facility] Comment on above: Performed By: #### P ROLAC #### [facility] [address] [place] [address] Dr. Anil Hayes Monocytes/100 WBC (Bld) 13.1 % Critically high 1.7-12.0 [facility] Comment on above: Performed By: #### P ROLAC #### [facility] [address] [place] [address] Dr. Anil Hayes NEUT # 1.6 103/ul Normal 1.4-6.5 [facility] Comment on above: Performed By: #### P ROLAC #### [facility] [address] [place] [address] Dr. Anil Hayes Neutrophils/100 WBC (Bld) 47.9 % Normal 43.0-75.0 [facility] Comment on above: Performed By: #### P ROLAC #### [facility] [address] [place] [address] Dr. Anil Hayes Platelet mean volume (Bld) [Entitic vol] 9.9 fL Normal 9.5-13.5 [facility] Comment on above: Performed By: #### P ROLAC #### [facility] [address] [place] [address] Dr. Anil Hayes PLT 161 103/ul Normal 150-450 [facility] Comment on above: Performed By: #### P ROLAC #### [facility] [address] [place] [address] Dr. Anil Hayes RBC 4.47 106/ul Critically low 4.70-6.10 [facility] Comment on above: Performed By: #### P ROLAC #### [facility] [address] [place] [address] Dr. Anil Hayes WBC 3.3 103/ul Critically low 4.0-11.0 [facility] Comment on above: Performed By: #### P ROLAC #### [facility] [address] [address] [address] Anil Hayes CBC AUTO DIFFon 01-10-2022 BASO # 0.0 103/ul Normal 0.0-0.1 [facility] Comment on above: Performed By: #### C BC, RETIC #### [facility] [address] [address] [address] Anil Hayes Basophils/100 WBC (Bld) 0.3 % Normal 0.2-2.0 [facility] Comment on above: Performed By: #### C BC, RETIC #### [facility] [address] [address] [address] Anil Hayes EO # 0.0 103/ul Normal 0.0-0.7 [facility] Comment on above: Performed By: #### C BC, RETIC #### [facility] [address] [address] [address] Anil Hayes Eosinophils/100 WBC (Bld) 0.6 % Critically low 0.9-7.0 [facility] Comment on above: Performed By: #### C BC, RETIC #### [facility] [address] [place] [address] Dr. Anil Hayes Erythrocyte distribution width (RBC) [Ratio] 13.9 % Normal 11.0-15.0 [facility] Comment on above: Performed By: #### C BC, RETIC #### [facility] [address] [place] [address] Dr. Anil Hayes Hematocrit (Bld) [Volume fraction] 42.2 % Normal 42.0-54.0 [facility] Comment on above: Performed By: #### C BC, RETIC #### [facility] [address] [address] [address] Anil Hayes Hemoglobin (Bld) [Mass/Vol] 13.2 g/dL Critically low 14.0-18.0 [facility] Comment on above: Performed By: #### C BC, RETIC #### [facility] [address] [address] [address] Anil Hayes IG # 0.06 10e3/ul Critically high 0.00-0.03 [facility] Comment on above: Performed By: #### C BC, RETIC #### [facility] [address] [address] [address] Anil Hayes IG % 1.9 % Critically high 0.0-0.5 [facility] Comment on above: Performed By: #### C BC, RETIC #### [facility] [address] [address] [address] Anil Hayes LYMPH # 1.2 103/ul Normal 1.2-3.8 [facility] Comment on above: Performed By: #### C BC, RETIC #### [facility] [address] [place] [address] Dr. Anil Hayes Lymphocytes/100 WBC (Bld) 38.0 % Normal 20.5-60.0 [facility] Comment on above: Performed By: #### C BC, RETIC #### [facility] [address] [address] [address] Anil Hayes MANUAL DIFF REQ NO Normal [facility] Comment on above: Performed By: #### C BC, RETIC #### [facility] [address] [address] [address] nAil Hayes MCH (RBC) [Entitic mass] 29.7 pg Normal 25.9-34.0 [facility] Comment on above: Performed By: #### C BC, RETIC #### [facility] [address] [address] [address] Anil Hayes MCHC (RBC) [Mass/Vol] 31.3 g/dL Normal 29.9-35.2 [facility] Comment on above: Performed By: #### C BC, RETIC #### [facility] [address] [address] [address] Anil Hayes MCV (RBC) [Entitic vol] 94.8 fL Critically high 80.0-94.0 [facility] Comment on above: Performed By: #### C BC, RETIC #### [facility] [address] [address] [address] Anil Hayes MONO # 0.4 103/ul Normal 0.3-0.8 [facility] Comment on above: Performed By: #### C BC, RETIC #### [facility] [address] [address] [address] Anil Hayes Monocytes/100 WBC (Bld) 11.8 % Normal 1.7-12.0 [facility] Comment on above: Performed By: #### C BC, RETIC #### [facility] [address] [address] [address] Anil Hayes NEUT # 1.5 103/ul Normal 1.4-6.5 [facility] Comment on above: Performed By: #### C BC, RETIC #### [facility] [address] [address] [address] Anil Hayes Neutrophils/100 WBC (Bld) 47.4 % Normal 43.0-75.0 [facility] Comment on above: Performed By: #### C BC, RETIC #### [facility] [address] [address] [address] Anil Hayes Platelet mean volume (Bld) [Entitic vol] 9.8 fL Normal 9.5-13.5 [facility] Comment on above: Performed By: #### C BC, RETIC #### [facility] [address] [address] [address] Anil Hayes PLT 197 103/ul Normal 150-450 [facility] Comment on above: Performed By: #### C BC, RETIC #### [facility] [address] [address] [address] Anil Hayes RBC 4.45 106/ul Critically low 4.70-6.10 [facility] Comment on above: Performed By: #### C BC, RETIC #### [facility] [address] [address] [address] Anil Hayes WBC 3.1 103/ul Critically low 4.0-11.0 [facility] Comment on above: Performed By: #### C BC, RETIC #### [facility] [address] [address] [address] Anil Hayes GLYCOHEMOGLOBIN A1Con 2021 ADA RECOMMENDATION SEE BELOW Normal [facility] Comment on above: Result Comment: ADA RECOMMENDED LIMIT 4.0 - 6.0 ADA THERAPEUTIC TARGET < 7.0 ACTION SUGGESTED > 7.0 Performed By: #### A 1C #### [facility] [address] [address] [address] Anil Hayes Glucose [Mass/Vol] 163 mg/dL Normal [facility] Comment on above: Performed By: #### A 1C #### [facility] [address] [address] [address] Anil Hayes HbA1c (Bld) [Mass fraction] 7.3 % Critically high 4.5-6.2 [facility] Comment on above: Performed By: #### A 1C #### [facility] [address] [address] [address] Anil Hayes LIPID PROFILEon 01-10-2022 CHOL-HDL RATIO NORM SEE BELOW Normal [facility] Comment on above: Result Comment: 3.3 - 4.4 LOW RISK 4.4 - 7.1 AVERAGE RISK 7.1 - 11.0 MODERATE RISK >11.0 HIGH RISK Performed By: #### P ROLAC #### [facility] [address] [address] [address] Anil Hayes Cholesterol [Mass/Vol] 106 mg/dL Normal <=200 [facility] Comment on above: Performed By: #### P ROLAC #### [facility] [address] [address] [address] Anil Hayes Cholesterol in HDL [Mass/Vol] 35 mg/dL Critically low 40-60 [facility] Comment on above: Performed By: #### P ROLAC #### [facility] [address] [address] [address] Anil Hayes Cholesterol in LDL [Mass/Vol] 50.4 mg/dL Normal [facility] Comment on above: Performed By: #### P ROLAC #### [facility] [address] [address] [address] Anil Hayes Cholesterol.total/Chol esterol in HDL [Mass ratio] 3.0 {ratio} Normal [facility] Comment on above: Performed By: #### P ROLAC #### [facility] [address] [address] [address] Anil Hayes HDL NORMAL > or = 60 mg/dl - LO W CARDIOVASCULAR RISK <40 mg/dl - HIGH CARDIOVASCULAR RISK Normal [facility] Comment on above: Performed By: #### P ROLAC #### [facility] [address] [address] [address] Anil Hayes LDL CALC NORMAL SEE BELOW Normal [facility] Comment on above: Result Comment: <100 mg/dl OPTIMAL 100 - 129 mg/dl NEAR OR ABOVE OPTIMAL 130 - 159 mg/dl BORDERLINE HIGH 160 - 189 mg/dl HIGH >190 mg/dl VERY HIGH Performed By: #### P ROLAC #### [facility] [address] [address] [address] Anil Hayes Triglyceride [Mass/Vol] 103 mg/dL Normal <=150 [facility] Comment on above: Performed By: #### P ROLAC #### [facility] [address] [address] [address] Anil Hayes VLDL CALC 20.6 mg/dL Normal [facility] Comment on above: Performed By: #### P ROLAC #### [facility] [address] [address] [address] Anil Hayes MICROALBUMIN, RAND URon 06-0 mALB 3.3 mg/L Normal <=30.0 [facility] Comment on above: Performed By: #### C BC, RETIC #### [facility] [address] [address] [address] Anil Hayes PROF 14(COMP METB)on 022 Albumin [Mass/Vol] 4.0 g/dL Normal 3.4-5.0 [facility] Comment on above: Performed By: #### P ROLAC #### [facility] [address] [place] [address] Dr. Anil Hayes Albumin/Globulin [Mass ratio] 1.2 {ratio} Normal [facility] Comment on above: Performed By: #### P ROLAC #### [facility] [address] [address] [address] Anil Hayes ALP [Catalytic activity/Vol] 58 U/L Normal 46-116 [facility] Comment on above: Performed By: #### P ROLAC #### [facility] [address] [address] [address] Anil Hayes ALT [Catalytic activity/Vol] 29 U/L Normal 16-63 [facility] Comment on above: Performed By: #### P ROLAC #### [facility] [address] [address] [address] Anil Hayes Anion gap [Moles/Vol] 10.8 mmol/L Normal [facility] Comment on above: Performed By: #### P ROLAC #### [facility] [address] [address] [address] Anil Hayes AST [Catalytic activity/Vol] 12 U/L Critically low 15-37 [facility] Comment on above: Performed By: #### P ROLAC #### [facility] [address] [address] [address] Anil Hayes Bilirubin [Mass/Vol] 0.5 mg/dL Normal 0.2-1.0 [facility] Comment on above: Performed By: #### P ROLAC #### [facility] [address] [address] [address] Anil Hayes Calcium [Mass/Vol] 8.7 mg/dL Normal 8.5-10.1 [facility] Comment on above: Performed By: #### P ROLAC #### [facility] [address] [address] [address] Anil Hayes Chloride [Moles/Vol] 108 mmol/L Critically high 98-107 [facility] Comment on above: Performed By: #### P ROLAC #### [facility] [address] [address] [address] Anil Hayes CO2 [Moles/Vol] 26.7 mmol/L Normal 21.0-32.0 [facility] Comment on above: Performed By: #### P ROLAC #### [facility] [address] [address] [address] Anil Hayes Creatinine [Mass/Vol] 0.72 mg/dL Normal 0.70-1.30 [facility] Comment on above: Performed By: #### P ROLAC #### [facility] [address] [address] [address] Anil Hayes EGFR-AF ECUADOREAN >60 Normal >=60 [facility] Comment on above: Performed By: #### P ROLAC #### [facility] [address] [address] [address] Anil Hayes EGFR-NON AF ECUADOREAN >60 Normal >=60 [facility] Comment on above: Performed By: #### P ROLAC #### [facility] [address] [address] [address] Anil Hayes Globulin (S) [Mass/Vol] 3.4 g/dL Normal [facility] Comment on above: Performed By: #### P ROLAC #### [facility] [address] [address] [address] Anil Hayes Glucose [Mass/Vol] 127 mg/dL Critically high 74-106 [facility] Comment on above: Performed By: #### P ROLAC #### [facility] [address] [address] [address] Anil Hayes Potassium [Moles/Vol] 4.5 mmol/L Normal 3.5-5.1 [facility] Comment on above: Performed By: #### P ROLAC #### [facility] [address] [address] [address] Anil Hayes Protein [Mass/Vol] 7.4 g/dL Normal 6.4-8.2 [facility] Comment on above: Performed By: #### P ROLAC #### [facility] [address] [address] [address] Anil Hayes Sodium [Moles/Vol] 141 mmol/L Normal 136-145 [facility] Comment on above: Performed By: #### P ROLAC #### [facility] [address] [address] [address] Anil Hayes Urea nitrogen [Mass/Vol] 20.0 mg/dL Critically high 7.0-18.0 [facility] Comment on above: Performed By: #### P ROLAC #### [facility] [address] [address] [address] Anil Hayes Urea nitrogen/Creatinine [Mass ratio] 27.8 mg/mg Normal [facility] Comment on above: Performed By: #### P ROLAC #### [facility] [address] [address] [address] Anil Hayes UA RANDOM W/MICROSCOPICon AMORPHOUS CRYSTALS MANY Normal [facility] Comment on above: Performed By: #### P ROLAC #### [facility] [address] [place] [address] Dr. Anil Hayes BACTERIA NONE SEEN Normal NONE SEEN [facility] Comment on above: Performed By: #### P ROLAC #### [facility] [address] [place] [address] Dr. Anil Hayes Bilirubin Ql (U) Negative Normal NEGATIVE [facility] Comment on above: Performed By: #### P ROLAC #### [facility] [address] [address] [address] Anil Hayes CAST NONE SEEN Normal NONE SEEN [facility] Comment on above: Performed By: #### P ROLAC #### [facility] [address] [address] [address] Anil Hayes Clarity (U) CLOUDY Abnormal CLEAR [facility] Comment on above: Performed By: #### P ROLAC #### [facility] [address] [place] [address] Dr. Anil Hayes Color (U) LT. YELLOW Normal YELLOW [facility] Comment on above: Performed By: #### P ROLAC #### [facility] [address] [place] [address] Dr. Anil Hayes Crystals LM Nom (Urine sed) SEEN Abnormal NONE SEEN [facility] Comment on above: Performed By: #### P ROLAC #### [facility] [address] [address] [address] Anil Hayes Epithelial cells LM Ql (Urine sed) FEW Abnormal NONE SEEN /RARE [facility] Comment on above: Performed By: #### P ROLAC #### [facility] [address] [address] [address] Anil Hayes Glucose Ql (U) >1000 Abnormal NEGATIVE [facility] Comment on above: Performed By: #### P ROLAC #### [facility] [address] [address] [address] Anil Hayes Hemoglobin Ql (U) Negative Normal NEGATIVE [facility] Comment on above: Performed By: #### P ROLAC #### [facility] [address] [address] [address] Anil Hayes Ketones Ql (U) Negative Normal NEGATIVE [facility] Comment on above: Performed By: #### P ROLAC #### [facility] [address] [address] [address] Anil Hayes LEUKOCYTES Negative Normal NEGATIVE [facility] Comment on above: Performed By: #### P ROLAC #### [facility] [address] [address] [address] Anil Hayes MUCOUS NONE SEEN Normal NONE SEEN [facility] Comment on above: Performed By: #### P ROLAC #### [facility] [address] [address] [address] Anil Hayes Nitrite Ql (U) Negative Normal NEGATIVE [facility] Comment on above: Performed By: #### P ROLAC #### [facility] [address] [address] [address] Anil Hayes pH (U) 6.0 [pH] Normal 5-9 [facility] Comment on above: Performed By: #### P ROLAC #### [facility] [address] [address] [address] Anil Hayes RBC NONE SEEN Abnormal 0-2 [facility] Comment on above: Performed By: #### P ROLAC #### [facility] [address] [address] [address] Anil Hayes SPEC GRAVITY >=1.030 Abnormal 1.005-<=1.02 5 [facility] Comment on above: Performed By: #### P ROLAC #### [facility] [address] [address] [address] Anil Hayes UA PROTEIN Negative Normal NEGATIVE/ TRACE [facility] Comment on above: Performed By: #### P ROLAC #### [facility] [address] [address] [address] Anil Hayes Urobilinogen Qn (U) 0.2 {[place]'U}/dL Normal 0.2 - 1. 0 [facility] Comment on above: Performed By: #### P ROLAC #### [facility] [address] [address] [address] Anil Hayes WBC NONE SEEN Normal NONE SEEN [facility] Comment on above: Performed By: #### P ROLAC #### [facility] [address] [address] [address] Anil Hayes Vital Signs Date Time Vital Sign Value Performing Clinician Facility 10-30-2022 13:07-0400 Blood Pressure Location [facility] 10-30-2022 13:07-0400 Diastolic blood pressure 86 mm[Hg] Angela [facility]T [facility] 10-30-2022 13:07-0400 Heart rate 80 /min [facility] 10-30-2022 13:07-0400 Respiratory rate 16 /min Angela B[facility] [place] 10-30-2022 13:07-0400 Systolic blood pressure 142 mm[Hg] Angela BURT [facility] [place] 08-09-2022 09:05-0500 Body height 182.88 cm MD Nadir Naylor Work Phone: [facility] 08-09-2022 09:05-0500 Body temperature 98 [degF] MD Nadir Naylor Work Phone: [facility] 08-09-2022 09:05-0500 Body weight 92.9 kg MD Nadir Naylor Work Phone: [facility] 08-09-2022 09:05-0500 Diastolic blood pressure 78 mm[Hg] MD Nadir Naylor Work Phone: [facility] 08-09-2022 09:05-0500 Heart rate 80 /min MD Nadir Naylor Work Phone: [facility] 08-09-2022 09:05-0500 Respiratory rate 18 /min MD Nadir Naylor Work Phone: [facility] 08-09-2022 09:05-0500 SaO2% (BldA) [Mass fraction] 97 % MD Nadir Naylor Work Phone: [facility] 08-09-2022 09:05-0500 Systolic blood pressure 142 mm[Hg] MD Nadir Naylor Work Phone: [facility] 02-19-2022 09:41-0400 Blood Pressure Location Miguel PINO [facility] 02-19-2022 09:41-0400 Diastolic blood pressure 84 mm[Hg] Miguel PINO [facility] 02-19-2022 09:41-0400 Heart rate 82 /min Miguel PINO [facility] 02-19-2022 09:41-0400 Systolic blood pressure 132 mm[Hg] Miguel PINO [facility] 12-18-2021 09:15-0400 Body temperature 98.8 [degF] MD Jac Dixon Work Phone: [facility] 12-18-2021 09:15-0400 Body weight 93.89 kg MD Jac Dixon Work Phone: [facility] 12-18-2021 09:15-0400 Diastolic blood pressure 84 mm[Hg] MD Jac Dixon Work Phone: [facility] 12-18-2021 09:15-0400 Heart rate 91 /min MD Jac Dixon Work Phone: [facility] 12-18-2021 09:15-0400 Respiratory rate 22 /min MD Jac Dixon Work Phone: [facility] 12-18-2021 09:15-0400 SaO2% (BldA) [Mass fraction] 98 % MD Jac Dixon Work Phone: [facility] 12-18-2021 09:15-0400 Systolic blood pressure 129 mm[Hg] MD Jac Dixon Work Phone: [facility] 10-18-2021 10:23-0400 Body height 182.88 cm MD Jac Dixon Work Phone: [facility] [phone] 00:00-0400 >na< Nadir Naylor Dept. of Dermato logy Encounters Encounter Date Encounter Type Care Provider Facility Start: 03-02-2024 ambulatory Miguel Castaneda ty:HARMAN [facility] Start: 10-24-2023 End: 10-24-2023 ambulatory ERENDIRA AICHHOLZ Not Available Start: 10-07-2023 End: 10-07-2023 ambulatory ERENDIRA AICHHOLZ Not Available Start: 08-13-2023 End: 08-13-2023 ambulatory ERENDIRA AICHHOLZ Not Available Start: 07-09-2023 End: 07-09-2023 ambulatory LIAT TIDWELL Not Available Start: 03-12-2023 ambulatory PCP UNKNOWN Facility:[id number] Start: 03-12-2023 Office outpatient visit 15 minutes Nadir Naylor Dept. of Dermatology Start: 02-25-2023 End: 02-26-2023 ambulatory Miguel PINO Facility:[facility] Start: 02-14-2023 ambulatory Nadir Naylor Facility :[facility] Start: 11-14-2022 End: 11-15-[address] ANGELA BURT . Facility:[facility] Start: 10-30-2022 End: 10-31-2022 ambulatory Angela BURT Facility: [facility] Start: 10-30-2022 End: 10-30-2022 Patient encounter procedure Angela BURT [facility] Start: 09-18-[address] Nadir Naylor Facility:[id number] Start: 09-18-[address] Nadir Naylor Facility:[id number] Start: 09-17-2022 End: 09-18-2022 Office outpatient visit 15 minutes Nadir Naylor Dept. of Dermatology Start: 09-17-2022 End: 09-18-2022 ambulatory DOTTIE HILL Facility:[facility] Start: 08-13-2022 End: 08-14-2022 ambulatory LYNN GARCIA Facility:[facility] Start: 08-09-2022 End: 08-09-2022 ambulatory MD Nadir Naylor Work Phone: [facility] Work Phone: Start: 08-09-2022 End: 08-09-2022 Registered Recurring MD Nadir Naylor Work Phone: [facility] Work Phone: Start: 07-17-2022 End: 07-18-2022 ambulatory DOTTIE HILL Facility:[facility] Start: 03-13-2022 End: 03-13-2022 Office outpatient visit 15 minutes Nadir Naylor Dept. of Dermatology Start: 02-19-2022 End: 02-19-2022 Patient encounter procedure Miguel PINO [facility] Start: 02-07-2022 End: 02-07-2022 Office outpatient visit 15 minutes Nadir Naylor Dept. of Dermatology Start: 01-29-2022 End: 01-30-2022 ambulatory DOTTIE HILL Facility:[facility] Start: 01-10-2022 End: 01-11-2022 ambulatory DOTTIE HILL Facility:[facility] Start: 12-18-2021 End: 12-18-2021 Registered Recurring MD Jac Dixon Work Phone: [facility] Start: 09-11-2021 End: 09-12-2021 Office outpatient visit 15 minutes Nadir Naylor Dept. of Dermatology Start: 08-15-2021 End: 08-16-2021 Office outpatient visit 15 minutes Nadir Naylor Dept. of Dermatology Start: 05-31-2021 End: 05-31-2021 Office outpatient visit 15 minutes Nadir Naylor Dept[facility] of Dermatology Start: 11-02-2020 End: 11-02-2020 Office outpatient visit 15 minutes Nadir Naylor Dept. of Dermatology Procedures Date Procedure Procedure Detail Performing Clinician Start: 03-12-2023 Destruction premalig nant lesion 1st Nadir Naylor Start: 09-17-2022 End: 09-18-2022 Destruction premalignant lesion 1st Nadir Naylor Start: 09-17-2022 End: 09-18-2022 Tangential biopsy skin single lesion Nadir Naylor Start: 03-13-2022 End: 03-13-2022 Injection intralesional up to & includ 7 lesions Nadir Naylor Start: 01-10-2022 PSA screening DOTTIE GUERRA SHARONNichelleKARINAPolina Comment on above: Performed By: #### C BC, RETIC #### [facility] [address] [address] [address] Anil Hayes Start: 09-11-2021 End: 09-12-2021 Established Office Visit Level 3 ~Elena White Start: 09-11-2021 End: 09-12-2021 Established Office Visit Level 3 ~Elena White Start: 09-11-2021 End: 09-12-2021 Punch biopsy skin single lesion Nadir Naylor Start: 08-15-2021 End: 08-16-2021 Established Office Visit Level 3 C Elena Lucio Start: 08-15-2021 End: 08-16-2021 Punch biopsy skin single lesion Nadir Naylor Start: 05-31-2021 End: 05-31-2021 Destruction premalignant lesion 1st Nadir Naylor Start: 05-31-2021 End: 05-31-2021 Established Office Visit Level 3 C Guillermo Boo Nadir Rolando Start: 11-02-2020 End: 11-02-2020 Punch biopsy skin single lesion Nadir Naylor Start: 05-02-2010 Cystoscopy Miguel GRAHAM Colonoscopy Angela BURT Extraction of cataract Jason PINO Laser assisted in si tu keratomileusis Angela BURT Nasal polypectomy Angela MEADE Nasal polypectomy Angela MEADE Comment on above: x 2 Repair of meniscus Angela RODRIGUEZ Tonsillectomy Miguel PINO Plan of Treatment Date Care Activity Detail Author Comprehensive metabo lic 2000 panel - Serum or Plasma [facility] C enter Computed tomography for radiotherapy planning [facility] enter Lactate dehydrogenas e [Enzymatic activity/volume] in Unspecified specimen [facility] C enter [facility] Immunizations Immunization Date Immunization Notes Care Provider Fa cili 05-05-2022 influenza virus vaccine, unspecified formulation Angela DEUTSCHManuela [facility] 05-29-2021 SARS-CoV-2 (COVID-19 ) mRNA BNT-162b2 vax Angela BURT [facility] 10-10-2020 SARS-CoV-2 (COVID-19 ) Ad26 vaccine, recombinant Angela BURT [facility] Comment on above: Result Comment: 2022: TPV31 1955 pneumococcal conjugate vaccine, 7 valent Nadir Naylor Dept. of Dermatology NEGATED: Highlighted row has not occurred!02-19-2022 SARS-CoV-2 mRNA (tozinameran 5y-11y) vaccine Miguel MARILIN [facility] Payers Date Payer Category Payer Self-pay [id number] 2021 Unknown [id number] 1958 Medicare [id number] 1959 Unknown [id number] 1955 Unknown [id number] .16.84 0.1.170568.3.579.2.593 1955 Unknown [id number] .16.84 0.1.908462.3.579.2.593 1955 Unknown [id number] .16.84 0.1.288462.3.579.2.593 1956 Unknown [id number] 2.16.84 0.1.402598.3.579.2.593 1956 Unknown [id number] 2.16.84 0.1.083019.3.579.2.593 1956 Unknown [id number] 2.16.84 0.1.112681.3.579.2.593 1955 Unknown [id number] 2.16. 840.1.021640.3.579.2.356 1955 Unknown [id number] 2.16. 840.1.547873.3.579.2.356 1956 Unknown [id number] 2.16. 840.1.019372.3.579.2.356 1956 Unknown [id number] 2.16.8 40.1.223394.3.579.2.727 1956 Unknown [id number] 2.16.8 40.1.265110.3.579.2.727 1956 Unknown [id number] 2.16.8 40.1.472815.3.579.2.727 1956 Unknown [id number] 2.16.8 40.1.479821.3.579.2.727 1955 Unknown [id number] 2.16.84 0.1.993311.3.579.2.1259 1956 Unknown [id number] 2.16.84 0.1.960514.3.579.2.1259 1955 Unknown [id number] 2.16.84 0.1.276484.3.579.2.1259 1956 Unknown [id number] 2.16.840 .1.746107.3.579.2.1259 Unknown Jodie BC/BS [id number] Unknown [id number] Unknown [id number] 2.16.8 40.1.556248.3.579.2.531 Social History Date Type Detail Facility Start: 11-07-2020 Dept. of D ermatology Start: 1955 End: 1955 Sex Assigned At Male [facility] Start: 12-18-2021 End: 10-30-2022 Tobacco smoking status NHIS Never smoked tobacco (finding) [facility] Start: 02-17-2021 Tobacco smoking status Ex-smoker (fi nding) [facility] Sex Assigned At Male [facility] Tobacco smoking status Never [facility] [place] Goals Date Patient Goal Desired Activity /State Functional Status Date Assessment Result Facility 10-30-2022 Functional Status N/A [facility] Functional Status N/A [facility] Clinical Notes 10-19-2021 to 11-14-2022 Note Date & Type Note Facility 11-14-2022 Note OPERATIVE NOTE OPERATION DATE: 11/14/2022 PREOPERATIVE DIAGNOSIS: Colorectal screening. POSTOPERATIVE DIAGNOSIS: Diverticulosis throughout the colon. PROCEDURE: Colonoscopy to cecum. SURGEON: Angela Burt M.D. ANESTHESIA: Monitored anesthesia care. ESTIMATED BLOOD LOSS: Zero. INDICATIONS AND CONSENT: Patient is a 67-year-old male presents for colorectal screening. Indications, risks, benefits, alternatives of proceeding with colonoscopy were explained extensively to the patient, including the risks of bleeding, colon perforation or anesthetic complications. All of his questions were answered. Informed consent was obtained. PROCEDURE: Patient brought to the operating room, placed in the left lateral decubitus position. Monitored anesthesia care was provided. Rectal exam was performed which showed no masses or blood. The scope was inserted into the anal canal. Under direct visualization was advanced. With the aid of abdominal compression, it was advanced to the cecum where cecal markings were clearly identified. There was noted to be a good prep. Upon withdrawal of the scope, mucosal surfaces were carefully examined. There were no mass lesions or polyps. No inflammatory changes or ulcerations. There was moderate diverticulosis throughout the colon, including the right colon, with no inflammatory changes or bleeding. The scope was retroflexed in the anal canal. There was no significant hemorrhoidal disease. Scope was then withdrawn. Patient tolerated procedure well, was sent to recovery room in good condition. CC: Erendira Hill, DOTTIE [facility] 10-30-2022 Note Chief Complaint consultation for colonoscopy HPI Staff 67 year old male presents on consultation from Erendira Hill for screening colonoscopy. Denies abdominal or rectal pain. No rectal bleeding or change in bowel habits. Denies nausea or vomiting. No unexplained weight loss. Last colonoscopy completed 06/2011 with diverticulosis. No known family history of colon cancer. History of Present Illness 67 yo male with h/o DMII, htn, hyperlipidemia, BPH, referred for colorectal screening; denies change in bms or blood in stools; no abdominal complaints; on baby asa daily, no NSAID use, no SBE prophylaxis; no abdominal operations, last colonoscopy 2010 with diverticulosis; no fmhx of GI malignancy or IBD; no tobacco use. Review of Systems PHQ Score Initial Depression Screen Score: 0 ROS - Provider Constitutional: no fever, no sweats, no weight loss. Eyes: no glasses, no blurred vision, no visual loss. ENMT: no dentures, no hoarseness, no swallowing difficulties, no hearing loss, no ear infection(s), no nose bleeds. Cardiovascular: normal blood pressure, no chest pain, regular heartbeat, no heart murmur. Respiratory: no shortness of breath, no cough, no asthma, no wheezing. Gastrointestinal: no nausea, no vomiting, no diarrhea, no constipation, no blood in stool, no change in bowel habits, no abdominal pain, no hepatitis. Genitourinary: no kidney stones, no urine infection, no dysuria. Musculoskeletal: no pain, no weakness. Skin: no changing moles, no rash, no skin lumps. Neurologic: no seizures, no epilepsy, no headache. Psychiatric: no emotional or psychiatric problem. Heme/Lymph: no bleeding problems, no anemia, no blood clots, no transfusions. Allergy/Immunologic: no swollen lymph nodes/glands, no IV drug abuse. Other: Additional ROS info: Except as noted in the above Review of Systems and in the History of Present Illness, all other systems have been reviewed and are negative or noncontributory. Physical Exam Vitals & Measurements HR: 80(Peripheral) RR: 16 BP: 142/86 HT: 72 in HT: 183 cm WT: 92.7 kg WT: 203.94 lb BMI: 27.68 HEENT: normal conjunctiva, sclera clear, no scleral icterus, EOM intact, PERRLA, oral mucosa moist without lesions. Neck: trachea midline, no mass, symmetric, no thyromegaly or nodules, no adenopathy Respiratory: lungs CTA, respirations non labored. Cardiovascular: regular rate and rhythm, no murmur, no pedal edema or varicosities. Gastrointestinal: soft, non distended, no tenderness, no masses, no palpable hernias, diastasis recti no, no hepatosplenomegaly; normal bs Lymphatic: no cervical adenopathy, no supraclavicular adenopathy Musculoskeletal: normal gait, digits and nails without infection, nodes, cyanosis, clubbing. Skin: no rashes, no lesions, no ulcers, no subcutaneous nodules, induration. Psychiatric/Neuro: oriented to time, place, person, judgement normal, affect appropriate for age, insight intact, no focal deficits. Tests: review of old records completed, Discussed surgical options, risks, and possible complications with patient. Assessment/Plan 1. Screening for malignant neoplasm of colon (Z12.11: Encounter for screening for malignant neoplasm of colon) plan colonoscopy under anesthesia, informed consent obtained. Follow-up No qualifying data available Problem List/Past Medical History Ongoing BMI 27.0-27.9,adult BPH with urinary obstruction Diabetes Erectile dysfunction Glucosuria Hematuria Hypercholesterolemia Hyperlipidemia Hypertension Hypertensive disorder Leukopenia Primary cutaneous B-cell lymphoma Prostatitis Screening for malignant neoplasm of colon Historical High cholesterol Procedure/Surgical History Cystoscopy (05/02/2010), CE - Cataract extraction, Colonoscopy, LASIK, Meniscal repair, Nasal polypectomy, Nasal polypectomy, Ts - Tonsillectomy. Medications aspirin 81 mg oral tablet, 81 mg= 1 tab(s), Oral, Daily atorvastatin 10 mg Tab, 10 mg= 1 tab(s), Oral, Daily Farxiga 10 mg oral tablet, 10 mg= 1 tab(s), Oral, Daily finasteride 5 mg Tab, 5 mg= 1 tab(s), Oral, Daily, 3 refills lisinopril, 40 mg, Oral, Daily metformin, 1000 mg, Oral, BID pioglitazone, 30 mg, Oral, Daily tadalafil 20 mg Tab, 20 mg= 1 tab(s), Oral, As Directed, 3 refills tamsulosin 0.4 mg Cap, 0.4 mg= 1 cap(s), Oral, Daily, 3 refills Allergies sulfa drugs (Sweats, Fatigue) Social History Alcohol - Denies Alcohol Use, 10/30/2022 Substance Abuse - Denies Substance Abuse, 10/30/2022 Tobacco - Denies Tobacco Use, 02/11/2020 Never (less than 100 in lifetime) Tobacco Use:. Never Smokeless Tobacco Use:., 10/30/2022 Family History Dementia: Mother. Disorder of heart valve: Mother. Heart disease: Father. Hypertension: Mother and Brother. Immunizations Vaccine Date Status Comments influenza virus vaccine, inactivated 05/2022 Recorded SARS-CoV-2 mRNA (tozinameran 5y-11y) vac - Not Given Postpone due to refusal SARS-CoV-2 (COVID-19) (more content not included)... [facility] Comment on above: Result Comment: Elec tronically Signed By: CARMEL RUIZ, Angela Salvador\Date and Time Signed: 10/30/22 13:43 EDT 07-16-2022 Progress note Note Date/Time July 16, 2022 8:59am [facility] [place] [address] Rad Onc Follow Up Note - OP Signed Patient: Macario Farfan MR#: [id number] : 1955 Acct:[id number] Age/Sex: 67 / M Type: REG RCR Copies to: NON STAFF MD Nadir Long MD~ Date of Service Service Date: 07/16/22 Assessment & Plan (1) Cutaneous B-cell lymphoma Plan: Return to clinic July 2023 Assessment: 67-year-old male with a history of cT1 a N0 M0 primary cutaneous B-cell lymphomaof the left scalp. Patient underwent definitive radiation to a dose of 36 Lopez in 18 fractions completed on February 03, 2021 at . He then presented with biopsy-proven recurrence versus progressive disease immediately adjacent to the prior radiation field. He completed a second course of radiation to a dose of 30 Grayin 15 fractions to the anterior and posterior vertex here at [facility] on November 15, 2021. Planning images below. Based on patient's description it would appear that the new biopsy-proven CBCL are located immediately adjacent to the second radiation field. He appears to have responded well to the Kenalog injections at . He has follow-up in [address] Naylor and is DWAYNE todayon exam. We will see him back in 1 year. He knows to contact our office shouldhe feel any new abnormality on the scalp. Follow Up Note - Narrative 66-year-old male with a history of cT1 a N0 M0 primary cutaneous B-cell lymphomaof the left scalp. Patient underwent definitive radiation to a dose of 36 Lopez in 18 fractions completed on February 03, 2021 at . Oncologic history: * Presented in July 2020 with lesion on his left scalp that was treated with intralesional Kenalog and oral minocycline. * September 06, 2020 biopsy was done confirming atypical B-cell lymphocytic infiltrate. * November 03, 2019 1 repeat punch biopsy at showed cutaneous B-cell lymphoma, follicular center type, present on the deep and peripheral margin. * He received definitive radiation 36 Lopez in 18 fractions using superficial electrons completed in February 2021. * June 2021 he was seen in follow-up and per the notes there was no sign of recurrent disease. Exam was notable for 5 areas of actinic keratoses treated with cryotherapy. * July 2021 new lesions were noted on the scalp vertex and right parasagittal area, at the edge of the prior radiation field. * August 16, 2021 punch biopsy was repeated and again consistent with cutaneous B-cell lymphoma, follicular center type, present on the margins. * September 2021 patient was evaluated at radiation oncology with recommendations for second course of definitive radiation also using 36 Lopez in 18 fractions with electrons. It appears he was evaluated by dermatology on September 12, 2021 to ensure there were no other concerning lesions prior to a second course of radiation. It appears 3 other areas were biopsied due to concern for possible cutaneous B-cell lymphoma. The 3 areas were located on the right frontal scalp, the left parietal scalp anterior and the left parietal scalp posterior. Pathology: A) Skin, right frontal scalp deep lymphatic infiltrate with focal BCL-6 positivity. Pathology notes that there appear to be a possible germinal center though findings were not diagnostic for cutaneous B-cell lymphoma. B) skin, left parietal scalp, peribulbar lymphocytic infiltrate. These findingscould be seen in alopecia areata. C) skin, left parietal scalp, peribulbar lymphocytic infiltrate. These findingscould be seen in alopecia areata. November 15, 2021 patient completed a second course of radiation to a dose of 30 Lopez in 15 fractions to the anterior and posterior vertex. Since that time he has done well. He returns to clinic today for routine follow-up.He denies any new palpable abnormality in the skin. No new palpable lymph nodes. Since his last visit he has been evaluated by Dr. Naylor at [facility] found to have a biopsy (February 07, 2022) proven area of cutaneous B-cell lymphoma on the right scalp. Per the notes he has undergone a second Kenalog injection. Patient states that the lesions have since resolved. Physical Exam General: alert and oriented male in no acute distress HEENT: normocephalic, extra ocular movements intact. Examination of the anterior posterior vertex of the scalp showed no residual changes from the priorradiation. Skin shows new hair growth No obvious signs of recurrent or residual disease. Lymph: No cervical, pre or postauricular lymphadenopathy on exam Lungs: normal work of breathing on room air Abdomen: non acute MSK: extremities within normal limits Neuro: grossly intact Dictated By: Jac Dixon MD DD/ [id number] Signed By: <Electronically signed by Jac Dixon MD> 07/16/22 1025 [facility] Work Phone: [phone] 663-235407-18-2022 Hospital Discharge instructions Patient Education 02/19/2022 10:02:28 Benign Prostatic Hyperplasia Benign Prostatic Hyperplasia Benign prostatic hyperplasia (BPH) is an enlarged prostate gland that is caused by the normal agingprocess and not by cancer. The prostate is a walnut-sized gland that is involved in the production of semen. It is located in front of the rectum and below the bladder. The bladder stores urine and the urethra is the tube that carries the urine out of the body. The prostate may get bigger as a man gets older. An enlarged prostate can press on the urethra. This can make it harder to pass urine. The build-up of urine in the bladder can cause infection. Back pressure and infection may progress to bladder damage and kidney (renal) failure. What are the causes? This condition is part of a normal aging process. However, not all men develop problems from this condition. If the prostate enlarges away from the urethra, urine flow will not be blocked. If it enlarges toward the urethra and compresses it, there will be problems passing urine. What increases the risk? This condition is more likely to develop in men over the age of 50 years. What are the signs or symptoms? Symptoms of this condition include: Getting up often during the night to urinate. Needing to urinate frequently during the day. Difficulty starting urine flow. Decrease in size and strength of your urine stream. Leaking (dribbling) after urinating. Inability to pass urine. This needs immediate treatment. Inability to completely empty your bladder. Pain when you pass urine. This is more common if there is also an infection. Urinary tract infection (UTI). How is this diagnosed? This condition is diagnosed based on your medical history, a physical exam, and your symptoms. Tests will also be done, such as: A post-void bladder scan. This measures any amount of urine that may remain in your bladder after you finish urinating. A digital rectal exam. In a rectal exam, your health care provider checks your prostate by putting a lubricated, gloved finger into your rectum to feel the back of your prostate gland. This exam detects the size of your gland and any abnormal lumps or growths. An exam of your urine (urinalysis). A prostate specific antigen (PSA) screening. This is a blood test used to screen for prostate cancer. An ultrasound. This test uses sound waves to electronically produce a picture of your prostate gland. Your health care provider may refer you to a specialist in kidney and prostate diseases (urologist). How is this treated? Once symptoms begin, your health care provider will monitor your condition (active surveillance or watchful waiting). Treatment for this condition will depend on the severity of your condition. Treatment may include: Observation and yearly exams. This may be the only treatment needed if your condition and symptoms are mild. Medicines to relieve your symptoms, including: ?Medicines to shrink the prostate. ?Medicines to relax the muscle of the prostate. Surgery in severe cases. Surgery may include: ?Prostatectomy. In this procedure, the prostate tissue is removed completely through an open incision or with a laparoscope or robotics. ?Transurethral resection of the prostate (TURP). In this procedure, a tool is inserted through the opening at the tip of the penis (urethra). It is used to cut away tissue of the inner core of the prostate. The pieces are removed through the same opening of the penis. This removes the blockage. ?Transurethral incision (TUIP). In this procedure, small cuts are made in the prostate. This lessens the prostate's pressure on the urethra. ?Transurethral microwave thermotherapy (TUMT). This procedure uses microwaves to create heat. The heat destroys and removes a small amount of prostate tissue. ?Transurethral needle ablation (TUNA). This procedure uses radio frequencies to destroy and remove a small amount of prostate tissue. ?Interstitial laser coagulation (ILC). This procedure uses a laser to destroy and remove a small amount of prostate tissue. ?Transurethral electrovaporization (TUVP). This procedure uses electrodes to destroy and remove a small amount of prostate tissue. ?Prostatic urethral lift. This procedure inserts an implant to push the lobes of the prostate away from the urethra. Follow these instructions at home: Take [id number] and prescription medicines only as told by your health care provider. Monitor your symptoms for any changes. Contact your health care provider with any changes. Avoid drinking large amounts of liquid before going to bed or out in public. Avoid or reduce how much caffeine or alcohol you drink. Give yourself time when you urinate. Keep all follow-up visits as told by your health care provider. This is important. Contact a health care provider if: You have unexplained back pain. Your symptoms do not get better with treatment. You develop side effects from the medicine you are taking. Your urine becomes very dark or has a bad smell. Your lower abdomen becomes distended and you have trouble passing your urine. Get help right away if: You have a fever or chills. You suddenly cannot urinate. You feel lightheaded, or very dizzy, or you faint. There are large amounts of blood or clots in the urine. Your urinary problems become hard to manage. You develop moderate to severe low back or flank pain. The flank is the side of your body between the ribs and the hip. These symptoms may represent a serious problem that is an emergency. Do not wait to see if the symptoms will go away. Get medical help right away. Call your local emergency services (911 in the [place] Do not drive yourself to the hospital. Summary Benign prostatic hyperplasia (BPH) is an enlarged prostate that is caused by the normal aging process and not by cancer. An enlarged prostate can press on the urethra. This can make it hard to pass urine. This condition is part of a normal aging process and is more likely to develop in men over the age of 50 years. Get help right away if you suddenly cannot urinate. This information is not intended to replace advice given to you by your health care provider. Make sure you discuss any questions you have with your health care provider. Document Released: 07/22/2006 Document Revised: 06/16/2019 Document Reviewed: 08/26/2017 [employer] Patient Education 2020 [employer] Follow Up Care 02/17/2021 09:37:58 With:MARILIN RUIZ, Miguel Perez, URL Address: [facility] [address], [place] [address] [phone] When:Within 1 Year(s) Comments:1 year with PSA [facility] 07-07-2022 Progress note Author Jac Dixon [facility] February 08, 2022 4:08pm Note Date/Time December 18, 2021 8:50a m [facility] [address] [id number] Rad Onc Follow Up Note - OP Signed with Addenda Patient: Macario Farfan MR#: [id number] : 1955 Acct:[id number] Age/Sex: 66 / M Type: REG RCR Copies to: NON STAFF Nadir Naylor MD~ ADDENDUM1 Date of service: 12/18/21 Addendum Dictated By: Jac Dixon MD Addendum Signed By: 02/08/221607 Addendum Cosigned By: DD/ /24/1608 TD/TT: 02/08/2202/24/1608 Assessment & Plan (1) Cutaneous B-cell lymphoma Plan: Return to clinic July 2022 Assessment: 66-year-old male with a history of cT1 a N0 M0 primary cutaneous B-cell lymphomaof the left scalp. Patient underwent definitive radiation to a dose of 36 Lopez in 18 fractions completed on February 03, 2021 at . He then presented with biopsy-proven recurrence versus progressive disease immediately adjacent to the prior radiation field. Patient returns to clinic today after completing second course of radiation to adose of 30 Lopez in 15 fractions to the anterior and posterior vertex. Plan utilized matched 6 MeV superficial electron barrow and was completed on November 15, 2021. His exam is negative for any sign of residual or recurrent disease. Scalp looks good with no residual skin changes from the prior radiation. Patient states he follows with Dr. Naylor at in February 2022. I will therefore stagger appointments and see him back in July 2022. Follow Up Note - Narrative 66-year-old male with a history of cT1 a N0 M0 primary cutaneous B-cell lymphomaof the left scalp. Patient underwent definitive radiation to a dose of 36 Lopez in 18 fractions completed on February 03, 2021 at . Oncologic history: * Presented in July 2020 with lesion on his left scalp that was treated with intralesional Kenalog and oral minocycline. * September 06, 2020 biopsy was done confirming atypical B-cell lymphocytic infiltrate. * November 03, 2019 1 repeat punch biopsy at showed cutaneous B-cell lymphoma, follicular center type, present on the deep and peripheral margin. * He received definitive radiation 36 Lopez in 18 fractions using superficial electrons completed in February 2021. * June 2021 he was seen in follow-up and per the notes there was no sign of recurrent disease. Exam was notable for 5 areas of actinic keratoses treated with cryotherapy. * July 2021 new lesions were noted on the scalp vertex and right parasagittal area, at the edge of the prior radiation field. * August 16, 2021 punch biopsy was repeated and again consistent with cutaneous B-cell lymphoma, follicular center type, present on the margins. * September 2021 patient was evaluated at radiation oncology with recommendations for second course of definitive radiation also using 36 Lopez in 18 fractions with electrons. It appears he was evaluated by dermatology on September 12, 2021 to ensure there were no other concerning lesions prior to a second course of radiation. It appears 3 other areas were biopsied due to concern for possible cutaneous B-cell lymphoma. The 3 areas were located on the right frontal scalp, the left parietal scalp anterior and the left parietal scalp posterior. Pathology: A) Skin, right frontal scalp deep lymphatic infiltrate with focal BCL-6 positivity. Pathology notes that there appear to be a possible germinal center though findings were not diagnostic for cutaneous B-cell lymphoma. B) skin, left parietal scalp, peribulbar lymphocytic infiltrate. These findingscould be seen in alopecia areata. C) skin, left parietal scalp, peribulbar lymphocytic infiltrate. These findingscould be seen in alopecia areata. Patient returns to clinic today after completing second course of radiation to adose of 30 Lopez in 15 fractions to the anterior and posterior vertex. Plan utilized matched 6 MeV superficial electron barrow and was completed on November 15, 2021. He reports a mild sunburn-like reaction that has resolved. He is pleased with his result. He denies any new palpable abnormality in the skin. No new palpable lymph nodes. Physical Exam General: alert and oriented male in no acute distress HEENT: normocephalic, extra ocular movements intact. Examination of the anterior posterior vertex of the scalp showed no residual changes from the priorradiation. Skin is smooth with expected alopecia. No obvious signs of recurrent or residual disease. Lymph: No cervical, pre or postauricular lymphadenopathy on exam Lungs: normal work of breathing on room air Abdomen: non acute MSK: extremities within normal limits Neuro: grossly intact Dictated By: Jac Dixon MD DD/ [id number] Signed By: <Electronically signed by Jac Dixon MD> 12/18/21 0927 [facility] Work Phone: [phone] 414-712803-17-2022 Consult note Author Jac Dixon [facility] October 19, 2021 11:56am Note Date/Time October 17, 2021 11: 49am [facility] [place] [address] Rad Onc Consult Note - OP Signed Patient: Macario Farfan MR#: [id number] : 1955 Acct:[id number] Age/Sex: 66 / M Type: REG RCR Copies to: NON STAFF MD Nadir Pacheco MD~ Assessment & Plan (1) Cutaneous B-cell lymphoma Plan: CT simulation-plan for a second course of definitive radiation to a dose of 30 Gy in 15 fractions using superficial electrons.. Planning will require special physics consult due to the prior radiation field and need to minimize overlap. Assessment: 65-year-old male with a history of cT1 a N0 M0 primary cutaneous B-cell lymphomaof the left scalp. Patient underwent definitive radiation to a dose of 36 Lopez in 18 fractions completed on February 03, 2021 at . He now presents with biopsy-proven recurrence versus progressive disease immediately adjacent to the prior radiation field. We discussed that we are happy to see him back at any time if there is a need for additional radiation or radiation related concerns. Local control rate for cutaneous B-cell lymphoma is typically quite high and that the disease was either more extensive than originally seen or is acting aggressivelyand could be an indication that he may need systemic therapy sometime in the future. I concur with the recommendations from and it is reasonable to proceed with an attempted another local treatment. I have reached out to Dr. Bennett and him awaiting his response. We will move forward with CT simulation,I will plan on delivery of 30 Lopez in 15 fractions per the NCCN guidelines. I provided a general overview of radiation treatment planning and delivery. We discussed the need for immobilization and CT simulation. Short and long-term side effects were reviewed in detail and his questions were answered. He was counseled on the risks regarding reirradiation and communicated his understanding. He was consented to receive care. More than 50% of time allotted to patient education, answering questions, and coordinating care. HPI - Service Date/Time Date: 10/18/21 Diagnosis: 65-year-old male with recurrent cutaneous B-cell lymphoma of the left scalp. Chief Complaint: Recurrent cancer HPI: 65-year-old male with a history of cT1 a N0 M0 primary cutaneous B-cell lymphomaof the left scalp. Patient underwent definitive radiation to a dose of 36 Lopez in 18 fractions completed on February 03, 2021 at . Oncologic history: * Presented in July 2020 with lesion on his left scalp that was treated with intralesional Kenalog and oral minocycline. * September 06, 2020 biopsy was done confirming atypical B-cell lymphocytic infiltrate. * November 03, 2019 1 repeat punch biopsy at showed cutaneous B-cell lymphoma, follicular center type, present on the deep and peripheral margin. * He received definitive radiation 36 Lopez in 18 fractions using superficial electrons completed in February 2021. * June 2021 he was seen in follow-up and per the notes there was no sign of recurrent disease. Exam was notable for 5 areas of actinic keratoses treated with cryotherapy. * July 2021 new lesions were noted on the scalp vertex and right parasagittal area, at the edge of the prior radiation field. * August 16, 2021 punch biopsy was repeated and again consistent with cutaneous B-cell lymphoma, follicular center type, present on the margins. * September 2021 patient was evaluated at radiation oncology with recommendations for second course of definitive radiation also using 36 Lopez in 18 fractions with electrons. It appears he was evaluated by dermatology on September 12, 2021 to ensure there were no other concerning lesions prior to a second course of radiation. It appears 3 other areas were biopsied due to concern for possible cutaneous B-cell lymphoma. The 3 areas were located on the right frontal scalp, the left parietal scalp anterior and the left parietal scalp posterior. Pathology: A) Skin, right frontal scalp deep lymphatic infiltrate with focal BCL-6 positivity. Pathology notes that there appear to be a possible germinal center though findings were not diagnostic for cutaneous B-cell lymphoma. B) skin, left parietal scalp, peribulbar lymphocytic infiltrate. These findingscould be seen in alopecia areata. C) skin, left parietal scalp, peribulbar lymphocytic infiltrate. These findingscould be seen in alopecia areata. Patient has been referred for consideration of therapy locally. Today patient is overall doing well. He denies any fatigue, no fevers chills ornight sweats. No recent weight loss. Physical Exam: General: alert, no acute distress HEENT: normocephalic, EOMI. examination of the scalp hyperpigmentation with scattered telangiectasias at the site of the prior radiation field on the left scalp. There are 2 areas of palpable subcentimeter nodularity consistent with the biopsy-proven recurrence of B-cell lymphoma immediately lateral to the priortreatment field. Posterior to the prior treatment field there are 2 small sitesfrom the biopsy which were found to be negative. CHEST: normal work of breathing on room air. No strider. Abdomen: non acute MSK: extremities within normal limits Neuro: grossly intact [facility] - Medical History Medical History: Medical History (Last Updated 10/17/21 @ 12:51 by Tatiana Riley RN) Cutaneous B-cell lymphoma Diabetes High cholesterol Hypertension Home Medications & Allergies Allergies Sulfa (Sulfonamide Antibiotics) Adverse Reaction (Verified 10/17/21 12:54) Unknown Reaction Home Medications aspirin 81 mg capsule 81 mg PO DAILY 10/17/21 [History Confirmed 10/17/21] atorvastatin 20 mg tablet 20 mg PO DAILY 10/17/21 [History Confirmed 10/17/21] dapagliflozin 5 mg tablet (Farxiga) 5 mg PO DAILY 10/17/21 [History Confirmed 10/17/21] ezetimibe 10 mg tablet 10 mg PO DAILY 10/17/21 [History Confirmed 10/17/21] finasteride 5 mg tablet 5 mg PO DAILY 10/17/21 [History Confirmed 10/17/21] ketoconazole 2 % shampoo 1 applic TOPICAL 2XW 10/17/21 [History Confirmed 10/17/21] lisinopril 20 mg tablet 20 mg PO DAILY 10/17/21 [History Confirmed 10/17/21] sitagliptin 50 mg-metformin 1,000 mg tablet (Janumet) 1 tab PO BID 10/17/21 [History Confirmed 10/17/21] tamsulosin 0.4 mg capsule 0.4 mg PO DAILY 10/17/21 [History Confirmed 10/17/21] Subjective ROS: I reviewed the 12-point Review of Systems with the patient as per our standard questionnaire. Objective Pain: 0/10 Karnofsky Performance Scale: 90%: Can perform normal activity, minor signs of disease Physical Exam: Physical Exam: General: alert, no acute distress HEENT: normocephalic, EOMI, no trismus noted. Oral cavity shows dentition at baseline. Buccal and gingival mucosa pink and moist without lesion. Oral tongue is soft, mobile. Base of tongue is soft, no palpable abnormality. Bilateral tonsillar pillars within normal limits, as is the posterior pharyngeal wall. Neck: ROM intact. No significant fibrosis. No residual radiation skin changes noted. CHEST: clear to ausculation bilaterally, normal work of breathing on room air. No strider. Abdomen: non acute MSK: extremities within normal limits Neuro: grossly intact Dictated By: Jac Dixon MD DD/ [id number] Signed By: <Electronically signed by Jac Dixon MD> 10/19/21 1156 [facility] Work Phone: Consult note Author Lynn Garcia [facility] August 09, 2022 12:04pm Note Date/Time August 09, 2022 9: 57am [facility] [place] [address] Hem/Onc Consult Note - OP Signed Patient: Macario Farfan MR#: [id number] : 1955 Acct:[id number] Age/Sex: 67 / M Type: REG RCR Copies to: NON STAFF Nadir Naylor MD~ HPI Date/Time of Service: Date of Service: 08/09/2022 Time of Service: 09:56 Referring Provider/PCP: Referring Provider: Nadir Naylor MD PCP: NON STAFF - History of Present Illness Reason for Consultation: Leukopenia; history of cutaneous B cell lymphoma (scalp) Chief Complaint: Patient is here for a referral from [facility] for leukopenia. Outside labs. Patient reports fatigue and feeling tired all of the time. HPI: Dear DOTTIE Hill, I have seen your patient in consultation and would like to thank you for the courtesy of your referral. As you know, Mr. Macario Farfan is a very nice 67-year-old gentleman with a past medical history significant for cutaneous B-cell lymphoma, diabetes mellitus, and hypercholesterolemia. He follows both Dr. Nadir Naylor at [facility] and Dr. 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 Completed definitive radiation 36 Lopez in 18 fractions at [facility] (Dr. Bennett) in February 2021. Diagnosed with recurrence near prior radiation field on August 16, 2021. Completed additionalsecond course of definitive radiation using 36 Lopez in 18 fractions?completed September 2021. Clinically, the patient is doing well from the cutaneous lymphomastandpoint and follows regularly with dermatology, Dr. Naylor at and Dr. Dixon. He was referred to our outpatient hematology clinic for evaluation of mild leukopenia without neutropenia. He denies any history or recent or recurrent infections. Specifically denies headaches, mucositis, lymphadenopathy, fatigue, fever/chills, night sweats, weight loss, chest pain, cough, SOB, abdominal pain,changes in bowel/bladder function, easy bruising/bleeding, neuropathy, new skin lesions or lower extremity edema. Most recent laboratories dated 07/17/2022: WBC count - 2.9; Hgb 13.9; [id number]; normal indices and RDW. Platelet count- 178 with ANC?1400. Normal renal and hepatic function with B12?380 and TSH?2.8. Hemoglobin A1C - 7.6 In review of past laboratories, he has documented mild leukopenia without neutropenia dating back to at least May 2020. May 2020: WBC - 4.1; ANC-2700 November 2020: WBC- 3.5; ANC-1900 January 2022: WBC- 3.1; ANC- 1500 and WBC- 3.3; ANC-1600 PMFSH - Medical History Medical History: Medical History (Last Updated 10/17/21 @ 12:51 by Tatiana Riley RN) Cutaneous B-cell lymphoma Diabetes High cholesterol Hypertension - Social History Smoking Status: Never smoker Substance Use Type: None Home Medications & Allergies Allergies Sulfa (Sulfonamide Antibiotics) Adverse Reaction (Verified 08/09/22 09:05) Unknown Reaction Home Medications aspirin 81 mg capsule 81 mg PO DAILY 10/17/21 [History Confirmed 08/09/22] atorvastatin 20 mg tablet 20 mg PO DAILY 10/17/21 [History Confirmed 08/09/22] dapagliflozin 5 mg tablet (Farxiga) 5 mg PO DAILY 10/17/21 [History Confirmed 08/09/22] ezetimibe 10 mg tablet 10 mg PO DAILY 10/17/21 [History Confirmed 08/09/22] finasteride 5 mg tablet 5 mg PO DAILY 10/17/21 [History Confirmed 08/09/22] ketoconazole 2 % shampoo 1 applic topical 2XW 10/17/21 [History Confirmed 08/09/22] lisinopril 20 mg tablet 20 mg PO DAILY 10/17/21 [History Confirmed 08/09/22] sitagliptin phosphate 50 mg-metformin 1,000 mg tablet (Janumet) 1 tab PO BID 10/17/21 [History Confirmed 08/09/22] tamsulosin 0.4 mg capsule 0.4 mg PO DAILY 10/17/21 [History Confirmed 08/09/22] Subjective Data - Diagnosis DIAGNOSIS: 1.) Recurrent cutaneous B-cell lymphoma of the left scalp; s/p definitive XRT inJ2020 and again in November 2021. 2.) Mild leukopenia Subjective/ROS - Narrative: As per the HPI, otherwise 10 point review of systems is negative. Objective - Resuscitation Status Resuscitation Status: Full Code - Height/Weight Height/Weight: Height 6 ft Weight 92.9 kg - Vital Signs Vital Signs: 08/09/22 09:05 Temperature 98 F Pulse Rate [Left Brachial] 80 Respiratory Rate 18 Blood Pressure [Left Arm] 142/78 H 02 Sat by Pulse Oximetry 97 Oxygen Delivery Method Room Air Physical Exam Narrative: PHYSICAL EXAMINATION: GENERAL: [Alert, no acute distress.] PAIN: [ 0] out of 10[ ] HEENT: [Head is normocephalic, atraumatic. No scleral icterus. Oral mucosa is pink and moist. No lesions or exudate. Examination of the anterior posterior vertex of the scalp showed no residual changes from the prior radiation. Skin shows new hair growth No obvious signs of recurrent or residual disease.] NECK: [Supple without adenopathy or thyromegaly.] HEART: [Regular rate and rhythm. S1 and S2 normal.] LUNGS: [Lungs clear to auscultation bilaterally. No wheezes or crackles.] ABDOMEN: [Abdomen soft, nontender, nondistended. No hepatosplenomegaly. Bowel sounds present x4 quadrants.] BACK: [Full ROM; No CVA tenderness.] EXTREMITIES: [Warm and dry. No edema, clubbing or cyanosis.] LYMPHATICS: No cervical, supraclavicular lymphadenopathy. NEUROLOGICAL: [No focal or sensory deficits. The patient is alert and oriented x3] - ECOG Performance Status ECOG Score: 0 Assessment and Plan (1) Leukopenia Mr. Farfan was referred to our outpatient hematology clinic for evaluation of mild, chronic asymptomatic leukopenia without neutropenia. Most recent laboratories dated 07/17/2022: WBC count - 2.9; Hgb 13.9; [id number]; normal indices and RDW. Platelet count- 178 with ANC?1400. Normal renal and hepatic function with B12?380 and TSH?2.8. Hemoglobin A1C - 7.6 In review of past laboratories, he has documented mild leukopenia without neutropenia dating back to at least May 2020. May 2020: WBC - 4.1; ANC-2700 November 2020: WBC- 3.5; ANC-1900 January 2022: WBC- 3.1; ANC- 1500 and WBC- 3.3; ANC-[address] Gray. Patient is clinically doing well, asymptomatic with no reports of recent/recurrent infections. No other cytopenias or significant abnormalities noted on most recent blood work. Differentials for leukopenia include: Nutritional deficiencies (B12/folate/copper) vs Autoimmune/Rheum disorders vs infection vs medications vsnormal variant. 1.) B12 level in July 2022 was - 380. This is within normal limits; but somewhat at lower end of normal. - patient may take oral Vitamin B12 supplement OTC if he wishes. - will request folic acid level; as well as, retic count. 2.) Patient with history of + ANDRZEJ 1:160 of unclear etiology - he does not have any systemic complaints to suggest underlying rheum condition or connective tissue disease. This has not been worked up by rheumatology and I will defer that to this PCP. 3.) Not taking any immunosuppressive medications. 4.) No history of recurrent or severe infections and no documented severe neutropenia; as his ANC has ranged anywhere between [id number] consistently. This is likely a normal variant, given the chronic nature of his leukopenia without any other significant lab abnormalities or constitutional symptoms. Recommend observation - No need for further work up or bone marrow biopsy at this time. Will follow up in 6 months with CBC, CMP and LDH to assess stability. He will continue appropriate follow up with his established providers in regardsto cutaneous B cell lymphoma. (2) Cutaneous B-cell lymphoma He follows both Dr. Nadir Naylor at [facility] and Dr. 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 Completed definitive radiation 36 Lopez in 18 fractions at [facility] (Dr. Bennett) in February 2021. Diagnosed with recurrence near prior radiation field on August 16, 2021. Completed additionalsecond course of definitive radiation using 36 Lopez in 18 fractions?completed September 2021. Clinically, the patient is doing well from the cutaneous lymphoma standpoint andfollows regularly with dermatology, Dr. Naylor at and Dr. Dixon. Next follow up with Dr. Naylor - scheduled for September 2022. - Time with Patient Total Time Spent with Patient (Consult): 45 mins - review outside records, lab review over 2 years, history and physical Coordination of Care & Counseling Time: Greater than 50% of time spent with patient was for coordination of care (as documented) and [id number] counseling of patient and/or family. Dictated By: Lynn Garcia APRN DD/ [id number] Signed By: <Electronically signed by SHIVAM Garcia> 08/09/22 1204 [facility] Work Phone: Evaluation + Plan note Future Appointments Appointment Date:02/25/2023 09:15:00 AM Scheduled Provider:Miguel PINO MD Location:[facility] Appointment Type:URO Office Visit Diagnostic Tests Pending * PSA Total 02/19/22 [facility] evaluation + Plan note Future Appointments Appointment Date:02/25/2023 09:15:00 AM Scheduled Provider:Miguel PINO MD Location:[facility] Appointment Type:URO Office Visit General Surgery [place] Evaluation noteN/ADept. of Dermatology Evaluntaom note* Diagnosis Onset Date Resolution Status Cutaneous B-cell lymphoma ac ranjan [facility] Work Phone: Hospital course Narrative No data available for this section [facility] Hospital Discharge instructions No data available for this section General Surgery [place] Progress note Author Jac Dixon [facility] December 18, 2021 9:27am Note Date/Time December 18, 2021 8:50a m [facility] at [address] [address] Rad Onc Follow Up Note - OP Signed Patient: Macario Farfan MR#: [id number] : 1955 Acct:[id number] Age/Sex: 66 / M Type: REG RCR Copies to: NON STAFF Nadir Naylor MD~ Assessment & Plan (1) Cutaneous B-cell lymphoma Plan: Return to clinic July 2022 Assessment: 66-year-old male with a history of cT1 a N0 M0 primary cutaneous B-cell lymphomaof the left scalp. Patient underwent definitive radiation to a dose of 36 Lopez in 18 fractions completed on February 03, 2021 at . He then presented with biopsy-proven recurrence versus progressive disease immediately adjacent to the prior radiation field. Patient returns to clinic today after completing second course of radiation to adose of 30 Lopez in 15 fractions to the anterior and posterior vertex. Plan utilized matched 6 MeV superficial electron barrow and was completed on November 15, 2021. His exam is negative for any sign of residual or recurrent disease. Scalp looks good with no residual skin changes from the prior radiation. Patient states he follows with Dr. Naylor at in February 2022. I will therefore stagger appointments and see him back in July 2022. Follow Up Note - Narrative 66-year-old male with a history of cT1 a N0 M0 primary cutaneous B-cell lymphomaof the left scalp. Patient underwent definitive radiation to a dose of 36 Lopez in 18 fractions completed on February 03, 2021 at . Oncologic history: * Presented in July 2020 with lesion on his left scalp that was treated with intralesional Kenalog and oral minocycline. * September 06, 2020 biopsy was done confirming atypical B-cell lymphocytic infiltrate. * November 03, 2019 1 repeat punch biopsy at showed cutaneous B-cell lymphoma, follicular center type, present on the deep and peripheral margin. * He received definitive radiation 36 Lopez in 18 fractions using superficial electrons completed in February 2021. * June 2021 he was seen in follow-up and per the notes there was no sign of recurrent disease. Exam was notable for 5 areas of actinic keratoses treated with cryotherapy. * July 2021 new lesions were noted on the scalp vertex and right parasagittal area, at the edge of the prior radiation field. * August 16, 2021 punch biopsy was repeated and again consistent with cutaneous B-cell lymphoma, follicular center type, present on the margins. * September 2021 patient was evaluated at radiation oncology with recommendations for second course of definitive radiation also using 36 Lopez in 18 fractions with electrons. It appears he was evaluated by dermatology on September 12, 2021 to ensure there were no other concerning lesions prior to a second course of radiation. It appears 3 other areas were biopsied due to concern for possible cutaneous B-cell lymphoma. The 3 areas were located on the right frontal scalp, the left parietal scalp anterior and the left parietal scalp posterior. Pathology: A) Skin, right frontal scalp deep lymphatic infiltrate with focal BCL-6 positivity. Pathology notes that there appear to be a possible germinal center though findings were not diagnostic for cutaneous B-cell lymphoma. B) skin, left parietal scalp, peribulbar lymphocytic infiltrate. These findingscould be seen in alopecia areata. C) skin, left parietal scalp, peribulbar lymphocytic infiltrate. These findingscould be seen in alopecia areata. Patient returns to clinic today after completing second course of radiation to adose of 30 Lopez in 15 fractions to the anterior and posterior vertex. Plan utilized matched 6 MeV superficial electron barrow and was completed on November 15, 2021. He reports a mild sunburn-like reaction that has resolved. He is pleased with his result. He denies any new palpable abnormality in the skin. No new palpable lymph nodes. Physical Exam General: alert and oriented male in no acute distress HEENT: normocephalic, extra ocular movements intact. Examination of the anterior posterior vertex of the scalp showed no residual changes from the priorradiation. Skin is smooth with expected alopecia. No obvious signs of recurrent or residual disease. Lymph: No cervical, pre or postauricular lymphadenopathy on exam Lungs: normal work of breathing on room air Abdomen: non acute MSK: extremities within normal limits Neuro: grossly intact Dictated By: Jac Dixon MD DD/ [id number] Signed By: <Electronically signed by Jac Dixon MD> 12/18/21 0927 [facility] Work Phone: Progress note No data available for this section [facility] reason for referral (narrative)* Name Reason for referral NA NA Dept. of Dermatology Assessments N/A Reason for Referral Name Reason for referral NA NA Chief Complaint and Reason for Visit Chief Complaint B Cell Lymphoma Reason for Visit Cutaneous B-cell lym phoma Chief Complaint Neutropenia/B Cell L ymphoma Reason for Visit Cutaneous B-cell lym phoma Summary Purpose Family History No Family History Records FoundNo Family History Records FoundNo Family History Records FoundNo Family History Records FoundNo Family History Records Found Advance Directives No Advanced Directives Records FoundNo Advanced Directives Records FoundNo Advanced Directives Records FoundNo Advanced Directives Records FoundNo Advanced Directives Records Found Additional Source Comments Care Teams (unrecognized sec tion and content) Team Status: Active Member Role Status Dates Jac Dixon MD Attending Provider Active Nadir Naylor MD Referring Provider Active NON STAFF Primary Care Provider Active Team Status: Active Member Role Status Dates NON STAFF Primary Care Provider Active Goals (unrecognized section and content) Goals may be documented in a n alternate section No data available for this sectionGoals may be documented in an alternate section No data available for this section (unrecognized sect ion and content) No Status Records FoundNo Status Records FoundNo Status Records FoundNo Status Records FoundNo Status Records Found INFORMATION SOURCE (unrecogn ized section and content) DATE CREATED AUTHOR [facility]20[facility] DATE CREATED AUTHOR AUTHOR'S ORGANIZ ATION 05/13/2023 [facility] DATE CREATED AUTHOR AUTHOR'S ORGANIZ ATION 07/10/2023 [facility] DATE CREATED AUTHOR AUTHOR'S ORGANIZ ATION 10/19/2023 [facility] DATE CREATED AUTHOR AUTHOR'S ORGANIZ ATION 10/25/2023 [facility] EPIC FOR RECORDS PERTAINING TO PATIENTS WHO ARE OR HAVE BEEN ENROLLED IN A CHEMICAL DEPENDENCY/SUBSTANCEABUSE PROGRAM, SOME INFORMATION MAY BE OMITTED. This clinical summary was aggregated from multiple sources. Caution should be exercised in using it in the provision of clinical care. This summary normalizes information from multiple sources, and as a consequence, information in this document may materially change the coding, format and clinical context of patient data. In addition, data may be omitted in some cases. CLINICAL DECISIONS SHOULD BE BASED ON THE PRIMARY CLINICAL RECORDS. [employer] provides no warranty or guarantee of the accuracy or completeness of information in this document.
== END 2023-10-29 08:09 | disposition home or self-care (01) ==
LOC: MRI 08:08
PROVIDERS: PCP Nurse Practitioner; Visit Provider Nurse Practitioner
DX: M25.561 Pain in right knee (principal); S83.231A Complex tear of medial meniscus, current injury, right knee, initial encounter; M25.461 Effusion, right knee; M71.21 Synovial cyst of popliteal space [Baker], right knee
CPT/HCPCS: 73721

== ENCOUNTER 2024-05-11 08:01 | Outpatient (OUT) | payer MEDICARE, OTHER, SELFPAY ==
--- OUTSIDE RECORDS SUMMARY | 2024-05-11 08:09 | XMS_ITS | CCD ---
Author Organization [facility] Care Team Providers Care Business Transformation Analyst Name Role Phone Nadir Naylor Unavailable Unavailable Norbert Rivera Unavailable Unavailable Nadir Naylor Unavailable Unavailable MD Jac Dixon Attending Provider MD Nadir Naylor Referring Provider [phone] NON STAFF Primary Care Provider Unavailabl e AICHHERLINDA, ERENDIRA Velma Primary Care Physician MD Jac Dixon Attending Provider MD Nadir Naylor Referring Provider NON STAFF Primary Care Provider Unavailabl e AICHHOLZ, AIR DRIER MACHINE OPERATOR ERENDIRA Consulting Unavailable AICHHOLZ, AIR DRIER MACHINE OPERATOR ERENDIRA Attending Unavailable AICHHOLZ, AIR DRIER MACHINE OPERATOR REENDIRA Admitting Unavailable AICHHOLZ, AIR DRIER MACHINE OPERATOR ERENDIRA Primary Care Unavailable AICHHOLZ, AIR DRIER MACHINE OPERATOR ERENDIRA Primary Care Unavailable AICHHOLZ, AIR DRIER MACHINE OPERATOR ERENDIRA Consulting Unavailable AICHHOLZ, AIR DRIER MACHINE OPERATOR ERENDIRA Attending Unavailable AICHHOLZ, AIR DRIER MACHINE OPERATOR ERENDIRA Admitting Unavailable AICHHOLZ, AIR DRIER MACHINE OPERATOR ERENDIRA Primary Care Unavailable FERN, AHMAD Admitting Unavailable FERN, AHMAD Consulting Unavailable FERN, AHMAD Attending Unavailable NILL .DR MILLER Admitting Unavailable NILL ., DR MILLER Consulting Unavailable NILL ., DR MILLER Attending Unavailable AICHHOLZ, AIR DRIER MACHINE OPERATOR ERENDIRA Primary Care Unavailable NANY ORTIZ Consulting Unavailable ADELE JOHNSON Consulting Unavailable DAMSCHRODER, MALORIE Attending Unavailable AICHHOLZ, AIR DRIER MACHINE OPERATOR ERENDIRA Primary Care Unavailable MALORIE GARCIA Admitting Unavailable DAMSMALORIE COLEMAN Consulting Unavailable AICHHOLZ, AIR DRIER MACHINE OPERATOR ERENDIRA Consulting Unavailable AICHHOLZ, AIR DRIER MACHINE OPERATOR ERENDIRA Attending Unavailable AICHHOLZ, AIR DRIER MACHINE OPERATOR ERENDIRA Admitting Unavailable AICHHOLZ, AIR DRIER MACHINE OPERATOR ERENDIRA Primary Care Unavailable Dr. Nadir Naylor Attending Unavail able PCP, Pt States None Referring Unavailable UNKNOWN, PCP Primary Care Unavailable UNKNOWN, PCP Primary Care Unavailable Rolando, Dr. Nadir Gutierrez Attending Unavail able PCP, Pt States None Referring Unavailable Rolando, Dr. Nadir Gutierrez Referring Unavail able SELENA CALDWELL Attending Unavailable UNKNOWN, PCP Primary Care Unavailable MD Jac Dixno Attending Provider MD Nadir Naylor Referring Provider NON STAFF Primary Care Provider Unavailabl e Erendira Hill Primary Care Provider [phone] Erendira Hill Attending Provider MD Nadir Naylor Referring Provider NON STAFF Primary Care Provider Unavailabl e SHIVAM Marie Attending Provider Miguel PINO Attending Unavailable Miguel PINO Attending Unavailable Erendira Hill Admitting Unavailable Erendira Hill Primary Care Unavailable Erendira Hill Attending Unavailable Nadir Naylor Referring Unavailable NON STAFF Primary Care Unavailable Della Marie Admitting Unavailable Della Marie Attending Unavailable NADIR NAYLOR Attending Unavailable ERENDIRA HILL Attending Unavailable ERENDIRA HILL Attending Unavailable ERENDIRA HILL Attending Unavailable DESTIN CONNELLY Attending Unavailable DESTIN CONNELLY Referring Unavailable LIAT TIDWELL Attending Unavailable ERENDIRA HILL Attending Unavailable DESTIN CONNELLY Attending Unavailable GISELA WAYNE Attending Unavailable GANGA NUÑEZ Attending Unavailable GISELA WAYNE Referring Unavailable ELVIA ELDER Attending Unavailable GISELA WAYNE Referring Unavailable ISABELA AMAYA Attending Unavailable GISELA WAYNE Referring Unavailable ELVIA ELDER Attending Unavailable GISELA WAYNE J Referring Unavailable DINORA MIRAMONTES Attending Unavailable GISELA WAYNE Referring Unavailable DINORA MIRAMONTES Attending Unavailable GISELA WAYNE Referring Unavailable DINORA MIRAMONTES Attending Unavailable GISELA WAYNE Referring Unavailable AMAN GO Attending Unavailable GISELA WAYNE Referring Unavailable AMAN GO Attending Unavailable GISELA WAYNE Referring Unavailable YEVGENIY SALTER Attending Unavailable Allergies Allergy Classification Reported Allergen(s) [...] Sweating (finding), Fatigue (finding) [facility] (1 source) Propensity to adverse reactions to drug 1 [facility] (1 source) Propensity to adverse reactions to drug 1 [facility] (1 source) Sulfonamides (Antibiotic) Drug allergy (disorder) 7 [facility] Rep[facility] (1 source) Propensity to adverse reactions to drug 1 Dept[facility] of Dermatology (2 sources) Sulfonamides (Antibiotic); Translations: [SULFA (SULFONAMIDE ANTIBIOTICS)] Drug allergy (disorder) 4 [facility] Repository Medications Current Medications Medication Drug Class(es) Dates Sig (Normalized) Sig (Original) aspirin 81 mg oral tablet (13 sources) Platelet Aggregation Inhibitor, Nonsteroidal Anti-inflammatory Drug Start: 11-02-2020 [id number] Medication aspirin aspirin 300 mg 11/02/2020 Active (Outside) Start: 02-15-2020 take 81 mg by mouth once daily Aspirin Active 81 MG PO Daily October 17, 2021 12:00am atorvastatin 20 mg oral tablet (13 sources) HMG-CoA Reductase Inhibitor Start: 10-17-2021 take 20 mg by mouth once daily Atorvastatin Active 20 MG PO Daily October 17, 2021 12:00am Start: 11-02-2020 [id number] Medicat ion atorvastatin atorvastatin 40 mg 11/02/2020 Active (Outside) Start: 02-15-2020 take 1 tablet by justine once daily atorvastatin 10 mg Tab 10 mg = 1 tab(s), Oral, Daily Start Date: 02/15/20 Status: Ordered dapagliflozin 5 mg oral tablet (13 sources) Sodium-Glucose Cotransporter 2 Inhibitor Start: 11-02-2020 take 1 tablet by mouth once daily Dapagliflozin Propanediol (Farxiga) 5 mg Tablet Active 5 MG PO Daily October 17, 2021 12:00am Start: 02-15-2020 take 1 tablet by mouth once da kathrine Farxiga 10 mg oral tablet 10 mg = 1 tab(s), Oral, Daily Start Date: 02/15/20 Status: Ordered finasteride 5 mg oral tablet (13 sources) 5-alpha Reductase Inhibitor Start: 11-02-2020 take 5 mg by mouth once daily Finasteride Active 5 MG PO Daily October 17, 2021 12:00am ketoconazole 20 mg/ml medicated shampoo (9 sources) Azole Antifungal Start: 02-26-2023 [id number] Medica tion ketoconazole 2 % shampoo ketoconazole 2 % shampoo 2 % 0 other 02/26/2023 Active (Current) Start: 10-17-2021 Ketoconazole A ctive 1 APPLIC TOPICAL Twice a Week October 17, 2021 12:00am Start: 09-12-2021 [id number] Medicat ion ketoconazole 2 % shampoo ketoconazole 2 % shampoo 2 % 1 Application topically daily 09/12/2021 Active (Current) lisinopril 20 mg oral tablet (13 sources) Angiotensin Converting Enzyme Inhibitor Start: 11-02-2020 take 20 mg by mouth once daily Lisinopril Active 20 MG PO Daily October 17, 2021 12:00am Start: 02-15-2020 take 40 mg by mouth [...] mg / SITagliptin 50 mg oral tablet (12 sources) Biguanide, Dipeptidyl Peptidase 4 Inhibitor Start: 10-17-2021 take 1 tablet by mouth twice daily Sitagliptin Phos-Metformin (Janumet) 50-1,000 mg Tablet Active 1 TAB PO Twice daily October 17, 2021 12:00am Start: 11-02-2020 [id number] Medicat ion sitagliptin 50 mg-metformin 500 mg tablet Janumet 50-500 mg 11/02/2020 Active (Outside) Start: 02-15-2020 Janumet 50 mg/ 1000 mg oral tablet 1 tab(s), Oral Start Date: 02/15/20 Status: Ordered pioglitazone 45 mg oral tablet (3 sources) Peroxisome Proliferator Receptor alpha Agonist, Peroxisome Proliferator Receptor gamma Agonist, Thiazolidinedione Start: 02-17-2024 take 45 mg by mouth once daily Pioglitazone Active 45 MG PO Daily February 17, 2024 12:00am Start: 02-19-2022 take 30 mg by mouth [...] Directed, # 30 tab(s), Refills(s) 3, Pharmacy: [id number], 183, cm, 02/19/22 9:42:00 EDT, Height/Length Dosing, 89, kg, 02/19/22 9:42:00 EDT, Weight Dosing Start Date: 02/19/22 Status: Ordered tamsulosin hydrochloride 0.4 mg oral capsule (13 sources) alpha-Adrenergic Hansel Start: 11-02-2020 take 0.4 mg by mouth once daily Tamsulosin Active 0.4 MG PO Daily October 17, 2021 12:00am Completed/Discontinued Medications Medication Drug Class(es) Dates Sig (Normalized) Sig (Original) ezetimibe 10 mg oral tablet (12 sources) Dietary Cholesterol Absorption Inhibitor Start: 11-02-2020 End: 02-14-2023 take 10 mg by mouth once daily Ezetimibe Discontinued 10 MG PO Daily October 17, 2021 12:00am February 14, 2023 9:57am Start: 02-15-2020 take 40 mg by mouth once daily ezetimibe 40 mg, Oral, Daily Start Date: 02/15/20 Status: Ordered Problems Problem Classification Problem Date Documented Date Episodic/Chronic Diabetes mellitus without complication (8 sources) Diabetes mellitus; Translations: [Type 2 diabetes mellitus without complications] Onset: 07-17-2022 02-11-2020 Chronic Diabetes mellitus without complication (3 sources) Glycosuria; Translations: [Glycosuria] Onset: 02-19-2022 Episodic Diseases of white blood cells (10 sources) Leukopenia; Translations: [Decreased white blood cell [...] (20 sources) Neoplasm of uncertain behavior of skin; Translations: [Neoplasm of uncertain behavior of skin] Onset: 11-02-2020 Episodic Non-Hodgkin`s lymphoma (20 sources) Unspecified B-cell lymphoma, unspecified site; 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] Onset: 05-31-2021 10-19-2021 Chronic Other aftercare (1 source) salvage determiner (current) use of aspirin; Translations: [USP CURRENT USE OF ASPIRIN] Onset: 11-15-2022 Episodic Other aftercare (1 source) Other group home (current) drug therapy; Translations: [OTH PREFORM MACHINE OPERATOR CURRENT DRUG THERAPY] Onset: 11-15-2022 Episodic Other aftercare (1 source) salvage determiner (current) use of oral hypoglycemic drugs; Translations: [USP USE ORAL HYPOGLYCEMIC DX] Onset: 11-15-2022 Episodic Other and unspecified benign neoplasm (8 sources) Hemangioma of skin and subcutaneous tissue; Translations: [Hemangioma of skin and subcutaneous tissue] Onset: 08-16-2021 Episodic Other and unspecified benign [...] 02-19-2022 Chronic Other non-epithelial cancer of skin (4 sources) Personal history of other malignant neoplasm of skin; Translations: [Personal history of other malignant neoplasm of skin] Onset: 09-18-2022 Episodic Other nutritional; endocrine; and metabolic disorders (1 source) Overweight in adulthood with body mass index of 25 or more but less than 30 10-30-2022 Episodic Other screening for suspected conditions (not mental disorders or infectious disease) (16 sources) Encounter for screening for malignant neoplasm of skin; Translations: [Screening for malignant neoplasm of colon done] Onset: 08-16-2021 Episodic Other skin disorders (17 sources) Actinic keratosis; Translations: [Actinic keratosis] Onset: 05-31-2021 Episodic Other skin disorders (12 sources) Other melanin hyperpigmentation Onset: 05-31-2021 Episodic Other skin disorders (8 sources) Other seborrheic keratosis; Translations: [Other seborrheic keratosis] Onset: 08-16-2021 Episodic Other skin disorders (6 sources) Scar conditions and fibrosis of skin Onset: 08-16-2021 Episodic Residual codes; unclassified (1 source) Family history of cancer; Translations: [Family history of malignant neoplasm of prostate] Onset: 02-19-2022 Episodic Residual codes; unclassified (4 sources) Decreased libido; Translations: [DECREASED LIBIDO] Onset: 09-17-2022 Episodic Unclassified (1 source) Patient encounter status 10-30-2022 Results Test Name Value Interpretation Reference Range [facility] DERMPATH LAB- DERMATOPATHOLOGY Pathology report.total SEE COMMENT Dermatopathology Case: [id number] Authorizing Provider: Nadir Naylor MD Collected: 03/25/2024 1411 Ordering Location: [facility] Received: 03/25/2024 1724 [facility] Pathologist: Kristin Gotti MD Specimen: SKIN, Left Forearm - Posterior Path report.final diagnosis SEE COMMENT SKIN, LEFT FOREARM - POSTERIOR, SHAVE BIOPSY: EPIDERMAL HYPERPLASIA WITH A COLUMN OF PARAKERATOSIS WITH UNDERLYING DYSKERATOSIS, SEE NOTE. Note: Microscopic examination reveals a specimen that extends into the mid reticular dermis. There is hyperkeratosis with areas of hemorrhage in the stratum corneum. There is a column of parakeratosis with diminishment of the underlying granular layer and dyskeratosis and there is significant epidermal hyperplasia with some areas of hypergranulosis. While the specimen has architectural features of a verrucous keratosis there is a cornoid lamella and a porokeratosis is favored. Electronically signed out by Kristin Gotti MD Laboratory comment By the signature on this report, the individual or group listed as making the Final Interpretation/Diagnos is certifies that they have reviewed this case. Path report.relevant Hx SEE COMMENT Encounter Diagnosis: Neoplasm of uncertain behavior of skin [id number] A Collection Comments: Differential Diagnosis: AK vs SCC Check Margins Yes/No?: Comments: Dermpath Lab: Routine Histopathology (formalin-fixed tissue) Finding Region: Left Forearm - Posterior Specimen Objective: Scattered, uniform and benign-appearing, regular brown melanocytic papules and macules. Path report.gross observation SEE COMMENT A: Received in formalin is a 9 x 8 x 1 mm piece of skin. It is armenta and brown in color. It is shave in shape. It was embedded in toto. The specimen was inked. The specimen was grossed by Jen Marshall. Normal [facility] Ambulatory A1C with Estimated Average G rose marie 02-04-2024 Glucose [Mass/Vol] 151 mg/dL Normal [facility] Comment on above: Result Comment: PERF ORMED BY: [place] [address] PATHOLOGIST SENIOR PRODUCT ENGINEER MEGGAN DE LEÓN M.D. Performed By: #### A 1C [facility] #### [address] Alanine aminotransferase [En zymatic activity/volume] in Serum or PlasmaOrdered By: Malorie Garcia on 02-04-2024 ALT [Catalytic activity/Vol] 19 U/L 7-52 [facility] Albumin [Mass/volume] in Ser um or Plasma by Bromocresol green (BCG) dye binding methoOrdered By: Malorie Garcia on 02-04-2024 Albumin BCG dye [Mass/Vol] 4.5 g/dL 3.5-5.7 [facility] Alkaline phosphatase [Enzyma tic activity/volume] in Serum or PlasmaOrdered By: Malorie Garcia on 02-04-2024 ALP [Catalytic activity/Vol] 50 U/L 34-104 [facility] Aspartate aminotransferase [ Enzymatic activity/volume] in Serum or PlasmaOrdered By: Malorie Garcia on 02-04-2024 AST [Catalytic activity/Vol] 14 U/L 13-39 [facility] Basophils Auto (Bld) [#/Vol] Ordered By: Malorie Garcia on 02-04-2024 Basophils (Bld) [#/Vol] 0.0 10*3/uL 0.0-0.2 [facility] Basophils/100 WBC Auto (Bld) Ordered By: Malorie Garcia on 02-04-2024 Basophils/100 WBC (Bld) 0.4 % . [facility] Bilirubin.total [Mass/volume ] in Serum or PlasmaOrdered By: Malorie Garcia on 02-04-2024 Bilirubin [Mass/Vol] 0.6 mg/dL 0.3-1.0 [facility] Calcium [Mass/volume] in Ser um or PlasmaOrdered By: Malorie Garcia on 02-04-2024 Calcium [Mass/Vol] 9.0 mg/dL 8.6-10.3 [facility] Carbon dioxide, total [Moles /volume] in Serum or PlasmaOrdered By: Malorie Garcia on 02-04-2024 CO2 [Moles/Vol] 26.6 mmol/L 21.0-31.0 [facility] Chloride [Moles/volume] in S hanna or PlasmaOrdered By: Malorie Garcia on 02-04-2024 Chloride [Moles/Vol] 106 mmol/L 98-107 [facility] Creatinine [Mass/volume] in Serum or PlasmaOrdered By: Malorie Garcia on 02-04-2024 Creatinine [Mass/Vol] 0.76 mg/dL 0.70-1.30 [place] Eosinophils Auto (Bld) [#/Vo l]Ordered By: Malorie Garcia on 02-04-2024 Eosinophils (Bld) [#/Vol] 0.0 10*3/uL 0.0-0.45 [facility] Eosinophils/100 WBC Auto (Bl d)Ordered By: Malorie Garcia on 02-04-2024 Eosinophils/100 WBC (Bld) 0.3 % . [facility] Erythrocyte distribution wid th Auto (RBC) [Ratio]Ordered By: Malorie Garcia on 02-04-2024 Erythrocyte distribution width (RBC) [Ratio] 14.6 % 12.0-14.8 [facility] Globulin Calc (S) [Mass/Vol] Ordered By: Malorie Garcia on 02-04-2024 Globulin (S) [Mass/Vol] 2.6 g/dL [facility] Glucose [Mass/volume] in Ser um or PlasmaOrdered By: Malorie Garcia on 02-04-2024 Glucose [Mass/Vol] 110 mg/dL High 70-100 [facility] Comment on above: ADA recommended refe rence rangeRandom Glucose Reference Range is dependent on time and content of last meal. Glucose of more than 200 mg/dL in a nonstressed, ambulatory subject supports the diagnosis of Diabetes Mellitus. Glucose mean value [Mass/vol ume] in Blood Estimated from glycated hemoglobinOrdered By: Erendira Hill on 02-04-2024 Average glucose Estimated from glycated hemoglobin (Bld) [Mass/Vol] 151 mg/dL [facility] Hematocrit Auto (Bld) [Volum e fraction]Ordered By: Malorie Garcia on 02-04-2024 Hematocrit (Bld) [Volume fraction] 38.7 % Low 38.8-50.0 [facility] Hemoglobin A1c percentageOrd ered By: Erendira Hill on 02-04-2024 HbA1c (Bld) [Mass fraction] 6.9 % High 4.3-5.6 [facility] Comment on above: Increased risk for d iabetes: 5.7 - 6.4diabetes: >6.4glycemic control for adults with diabetes: <7.0 Result Comment: Incr eased risk for diabetes: 5.7 - 6.4 diabetes: >6.4 glycemic control for adults with diabetes: <7.0 Performed By: #### A 1C [facility] #### [facility] [address] Hemoglobin [Mass/volume] in BloodOrdered By: Malorie Garcia on 02-04-2024 Hemoglobin (Bld) [Mass/Vol] 12.9 g/dL Low 13.0-17.0 [facility] Lactate dehydrogenase [Enzym atic activity/volume] in Serum or Plasma by Lactate to pyOrdered By: Malorie Garcia on 02-04-2024 LDH Lactate to pyruvate reaction [Catalytic activity/Vol] 137 U/L Low 140-271 [facility] Leukocytes [#/volume] correc adriana for nucleated erythrocytes in Blood by Automated counOrdered By: Malorie Garcia on 02-04-2024 WBC corrected for nucl RBC Auto (Bld) [#/Vol] 3.0 10*3/uL Low 4.1-10.5 [facility] Lymphocytes Auto (Bld) [#/Vo l]Ordered By: Malorie Garcia on 02-04-2024 Lymphocytes (Bld) [#/Vol] 1.2 10*3/uL 1.00-4.8 [facility] Lymphocytes/100 WBC Auto (Bl d)Ordered By: Malorie Garcia on 02-04-2024 Lymphocytes/100 WBC (Bld) 39.6 % . [facility] MCH Auto (RBC) [Entitic mass ]Ordered By: Malorie Garcia on 02-04-2024 MCH (RBC) [Entitic mass] 31.4 pg 27.5-35.2 [facility] MCHC Auto (RBC) [Mass/Vol]Or dered By: Malorie Garcia on 02-04-2024 MCHC (RBC) [Mass/Vol] 33.3 g/dL 32.5-35.6 [place] MCV Auto (RBC) [Entitic vol] Ordered By: Malorie Garcia on 02-04-2024 MCV (RBC) [Entitic vol] 94.1 fL 83.5-101 [facility] Monocytes Auto (Bld) [#/Vol] Ordered By: Malorie Garcia on 02-04-2024 Monocytes (Bld) [#/Vol] 0.5 10*3/uL 0.0-0.8 [facility] Monocytes/100 WBC Auto (Bld) Ordered By: Malorie Garcia on 02-04-2024 Monocytes/100 WBC (Bld) 17.1 % . [facility] Neutrophils Auto (Bld) [#/Vo l]Ordered By: Malorie Garcia on 02-04-2024 Neutrophils (Bld) [#/Vol] 1.3 10*3/uL Low 1.8-7.7 [facility] Neutrophils/100 WBC Auto (Bl d)Ordered By: Malorie Garcia on 02-04-2024 Neutrophils/100 WBC (Bld) 42.6 % . [facility] No Panel InformationOrdered By: Malorie Garcia on 02-04-2024 Estimated GFR (CKD-EPI) > 60.0 mL/Min [facility]acy Creatinine Clearance (Chem 98.35 [facility] Nucleated erythrocytes [Pres ence] in Blood by Automated countOrdered By: Malorie Garcia on 02-04-2024 Nucleated RBC Auto Ql (Bld) 0.1 /100{WBC} 0-0.5 [facility] Platelet mean volume Auto (B ld) [Entitic vol]Ordered By: Malorie Garcia on 02-04-2024 Platelet mean volume (Bld) [Entitic vol] 8.0 fL 6.6-10.1 [facility] Platelets Auto (Bld) [#/Vol] Ordered By: Malorie Garcia on 02-04-2024 Platelets (Bld) [#/Vol] 216 10*3/uL 150-450 [facility] Potassium [Moles/volume] in Serum or PlasmaOrdered By: Malorie Garcia on 02-04-2024 Potassium [Moles/Vol] 4.5 mmol/L 3.5-5.1 [place] Protein [Mass/volume] in Ser um or PlasmaOrdered By: Malorie Garcia on 02-04-2024 Protein [Mass/Vol] 7.1 g/dL 6.4-8.9 [facility] RBC Auto (Bld) [#/Vol]Ordere d By: Malorie Garcia on 02-04-2024 RBC (Bld) [#/Vol] 4.11 10*6/uL 3.90-5.60 [facility] Serum or plasma albumin/glob ulin mass ratioOrdered By: Malorie Garcia on 02-04-2024 Albumin/Globulin [Mass ratio] 1.7 {ratio} [facility] Serum or plasma anion gap de terminationOrdered By: Malorie Garcia on 02-04-2024 Anion gap [Moles/Vol] 9.9 mmol/L 6.0-15.0 [place] Sodium [Moles/volume] in Ser um or PlasmaOrdered By: Malorie Garcia on 02-04-2024 Sodium [Moles/Vol] 138 mmol/L 136-145 [facility] Urea nitrogen [Mass/volume] in Serum or PlasmaOrdered By: Malorie Garcia on 02-04-2024 Urea nitrogen [Mass/Vol] 20 mg/dL 7-25 [facility] WBC Auto (Bld) [#/Vol]Ordere d By: Malorie Garcia on 02-04-2024 WBC (Bld) [#/Vol] 3.0 10*3/uL Low 4.1-10.5 [facility] Ambulatory Visit Summaryon 0 02-25-2023 Ambulatory Visit Summary MACARIO FARFAN :1955 Visit Date:02/25/2023 Ambulatory Visit Instructions Your Diagnosis BPH with urinary obstruction Glucosuria Erectile dysfunction Family history of prostate cancer Tests Performed Urnls Dip Stick Auto w/o Microscopy POC [id number] Your Care Team Attending Physician - MARILIN RUIZ, Miguel Perez Primary Care Physician - ERENDIRA HILL [...] RUIZ, Miguel Perez Where: [facility] Patient Educationon 02-26-20 Patient Education Urology Benign [...] Follow these instructions at home: ? Take oado-bpd-gawkeju and prescription medicines only as told by [...] the medicine (more content not included)... Normal [facility] Urology Office/Clinic Noteon 02-25-2023 Urology Office/Clinic Note [...] URL [facility] [address], [place] [phone] Additional Instructions: 1 yr w/ PSA Patient Education Benign Prostatic Hyperplasia I, Prema Hernandez, personally scribed for Dr. Pino on 02/25/2023 [...] heart valve (more content not included)... Normal [facility] Comment on above: Result Comment: Elec tronically Signed By: Miguel PINO MD\.br\Date and Time Signed: 02/25/23 09:31 EDT\.br\Electronically Co-Signed By: Prema Hernandez\Date and Time Co-Signed: 02/25/23 09:29 EDT POINT OF CARE GLUCOSEon 04-1 Glucose [Mass/Vol] 119 mg/dL Critically high 74-106 [facility] Comment on above: Performed By: #### P OCGLUC #### [facility] [address] [place], [place] [address] Dr. Anil Hayes Dermatopathologyon 3 Dermatopathology Name MACARIO FARFAN Pathologist: SELENA CALDWELL MD Date of Procedure: 09/18/2022 Date Received: 09/19/2022 Date Reported 09/20/2022 Submitting Physician: NADIR NAYLOR MD Location: [facility] Copy To/Referring/Attending : BERT ALCARAZ D.O Other External # FINAL [...] MD. Electronically Signed Out By SELENA CALDWELL MD/BRR By the signature on this report, the individual or group listed as making the Final Interpretation/Diagnos is certifies that they have reviewed this case. Diagnostic interpretation performed at [facility]atopath [facility] [address] [place] [address], [place] [address] Microscopic Description: Microscopic examination performed. Clinical History: Irregular brown papule w/reticulated appearance on dermoscopy. SK vs. melanoma. Shave biopsy. ([facility]) Specimens Submitted As: A: SKIN, RIGHT MID BACK Gross Description: Received in formalin is one armenta-brown piece of skin measuring 7 x 5 x 1 mm. Inked and embedded in toto. mlz/09/19/2022 [facility] Medical [facility] Dermatopathology Laboratory [place], [place] [id number] [place] [address], [facility] [address] [facility] Comment on above: Performed By: #### D #### Dermatopathology FSHon 09-18-2022 FSH 13.4 mIU/mL Critically high 1.5-12.4 [facility] Comment on above: Performed By: #### C BC, RETIC #### [facility] [address] [place] [address] Dr. Anil Hayes LUTEINIZING HORMONE (LH)on 0 09-18-2022 LH 7.9 mIU/mL Normal 1.7-8.6 [facility] Comment on above: Performed By: #### C BC, RETIC #### [facility] [address] [address] [address] Anil Hayes PROLACTINon 09-18-2022 Prolactin 5.1 ng/mL Normal 4.0-15.2 [facility] Comment on above: Performed By: #### P ROLAC #### [facility] [address] [place] [address] Dr. Anil Hayes SEX HORMONE-BINDING GLOBULIN on 09-18-2022 Sex Horm Binding Glob, Serum 22.0 nmol/L Normal 19.3-76.4 [facility] Comment on above: Performed By: #### C BC, RETIC #### [facility] [address] [place] [address] Dr. Anil Hayes TESTOSTERONE, TOTALon 2022 Testosterone [Mass/Vol] 313 ng/dL Normal 264-916 [facility] Comment on above: Result Comment: Adul t male reference interval is based on a population of healthy nonobese males (BMI <30) between 19 and 39 years old. Troy et.al. JCEM 2017,102;9941-3406. PMID: [id number]. Performed By: #### C BC, RETIC #### [facility] [address] [place] [address] Dr. Anil Hayes CBC AUTO DIFFon 08-13-2022 BASO # 0.0 103/ul Normal 0.0-0.1 [facility] Comment on above: Performed By: #### C BC, RETIC #### [facility] [address] [place] [address] Dr. Anil Hayes Basophils/100 WBC (Bld) 0.3 % Normal 0.2-2.0 [facility] Comment on above: Performed By: #### C BC, RETIC #### [facility] [address] [place] [address] Dr. Anil Hayes EO # 0.0 103/ul Normal 0.0-0.7 [facility] Comment on above: Performed By: #### C BC, RETIC #### [facility] [address] [place] [address] Dr. Anil Hayes Eosinophils/100 WBC (Bld) 0.6 % Critically low 0.9-7.0 [facility] Comment on above: Performed By: #### C AMINATA, RETIC #### [facility] [address] [place] [address] Dr. Anil Hayes Erythrocyte distribution width (RBC) [Ratio] 13.9 % Normal 11.0-15.0 [facility] Comment on above: Performed By: #### C AMINATA, RETIC #### [facility] [address] [place] [address] Dr. Anil Hayes Hematocrit (Bld) [Volume fraction] 36.4 % Critically low 42.0-54.0 [facility] Comment on above: Performed By: #### C AMINATA, RETIC #### [facility] [address] [place] [address] Dr. Anil Hayes Hemoglobin (Bld) [Mass/Vol] 12.5 g/dL Critically low 14.0-18.0 [facility] Comment on above: Performed By: #### C BC, RETIC #### [facility] [address] [place] [address] Dr. Anil Hayes IG # 0.06 10e3/ul Critically high 0.00-0.03 [facility] Comment on above: Performed By: #### C BC, RETIC #### [facility] [address] [place] [address] Dr. Anil Hayes IG % 1.8 % Critically high 0.0-0.5 [facility] Comment on above: Performed By: #### C BC, RETIC #### [facility] [address] [place] [address] Dr. Anil Hayes LYMPH # 1.1 103/ul Critically low 1.2-3.8 [facility] Comment on above: Performed By: #### C BC, RETIC #### [facility] [address] [place] [address] Dr. Anil Hayes Lymphocytes/100 WBC (Bld) 31.7 % Normal 20.5-60.0 [facility] Comment on above: Performed By: #### C BC, RETIC #### [facility] [address] [place] [address] Dr. Anil Hayes MANUAL DIFF REQ NO Normal [facility] Comment on above: Performed By: #### C AMINATA, RETIC #### [facility] [address] [place] [address] Dr. Anil Hayes MCH (RBC) [Entitic mass] 30.1 pg Normal 25.9-34.0 [facility] Comment on above: Performed By: #### C AMINATA, RETIC #### [facility] [address] [place] [address] Dr. Anil Hayes MCHC (RBC) [Mass/Vol] 34.3 g/dL Normal 29.9-35.2 [facility] Comment on above: Performed By: #### C AMINATA, RETIC #### [facility] [address] [place] [address] Dr. Anil Hayes MCV (RBC) [Entitic vol] 87.7 fL Normal 80.0-94.0 [facility] Comment on above: Performed By: #### C AMINATA, RETIC #### [facility] [address] [place] [address] Dr. Anil Hayes MONO # 0.6 103/ul Normal 0.3-0.8 [facility] Comment on above: Performed By: #### C AMINATA, RETIC #### [facility] [address] [place] [address] Dr. Anil Hayes Monocytes/100 WBC (Bld) 17.9 % Critically high 1.7-12. 0 [facility] Comment on above: Performed By: #### C AMINATA, RETIC #### [facility] [address] [address] [address] Anil Hayes NEUT # 1.6 103/ul Normal 1.4-6.5 [facility] Comment on above: Performed By: #### C AMINATA, RETIC #### [facility] [address] [address] [address] Anil Hayes Neutrophils/100 WBC (Bld) 47.7 % Normal 43.0-75.0 [facility] Comment on above: Performed By: #### C AMINATA, RETIC #### [facility] [address] [address] [address] Anil Hayes Platelet mean volume (Bld) [Entitic vol] 9.3 fL Critically low 9.5-13.5 [facility] Comment on above: Performed By: #### C AMINATA, RETIC #### [facility] [address] [place] [address] Dr. Anil Hayes PLT 168 103/ul Normal 150-450 [facility] Comment on above: Performed By: #### C AMINATA, RETIC #### [facility] [address] [place] [address] Dr. Anil Hayes RBC 4.15 106/ul Critically low 4.70-6.10 [facility] Comment on above: Performed By: #### C AMINATA, RETIC #### [facility] [address] [place] [address] Dr. Anil Hayes WBC 3.4 103/ul Critically low 4.0-11.0 [facility] Comment on above: Performed By: #### C AMINATA, RETIC #### [facility] [address] [place] [address] Dr. Anil Hayes RETICULOCYTEon 08-13-2022 RETIC 2.57 % Normal 0.60-3.10 [facility] Comment on above: Performed By: #### C AMINATA, RETIC #### [facility] [address] [place] [address] Dr. Anil Hayes VIT B12 AND FOLATEon 023 Cobalamin (Vitamin B12) [Mass/Vol] 396.0 pg/mL Normal 193.0-986.0 [facility] Comment on above: Performed By: #### C BC, RETIC #### [facility] [address] [address] [address] Anil Hayes FOLATE 14.90 ng/mL Normal 8.60-58.90 [facility] Comment on above: Performed By: #### C BC, RETIC #### [facility] [address] [place] [address] Dr. Anil Hayes TESTOSTERONE, TOTALon 2021 Testosterone [Mass/Vol] 355 ng/dL Normal 264-916 [facility] Comment on above: Result Comment: Adul t male reference interval is based on a population of healthy nonobese males (BMI <30) between 19 and 39 years old. Troy et.al. JCEM 2017,102;5188-2445. PMID: [id number]. Performed By: #### P ROLAC #### [facility] [address] [place] [address] Dr. Anil Hayes CBC AUTO DIFFon 07-17-2022 BASO # 0.0 103/ul Normal 0.0-0.1 [facility] Comment on above: Performed By: #### C BC #### [facility] [address] [place] [address] Dr. Anil Hayes Basophils/100 WBC (Bld) 0.3 % Normal 0.2-2.0 [facility] Comment on above: Performed By: #### C BC #### [facility] [address] [place] [address] Dr. Anil Hayes EO # 0.0 103/ul Normal 0.0-0.7 [facility] Comment on above: Performed By: #### C BC #### [facility] [address] [place] [address] Dr. Anil Hayes Eosinophils/100 WBC (Bld) 0.3 % Critically low 0.9-7.0 [facility] Comment on above: Performed By: #### C BC #### [facility] [address] [place] [address] Dr. Anil Hayes Erythrocyte distribution width (RBC) [Ratio] 13.4 % Normal 11.0-15.0 [facility] Comment on above: Performed By: #### C BC #### [facility] [address] [place] [address] Dr. Anil Hayes Hematocrit (Bld) [Volume fraction] 42.9 % Normal 42.0-54.0 [facility] Comment on above: Performed By: #### C BC #### [facility] [address] [place] [address] Dr. Anil Hayes Hemoglobin (Bld) [Mass/Vol] 13.9 g/dL Critically low 14.0-18.0 [facility] Comment on above: Performed By: #### C BC #### [facility] [address] [place] [address] Dr. Anil Hayes IG # 0.05 10e3/ul Critically high 0.00-0.03 [facility] Comment on above: Performed By: #### C BC #### [facility] [address] [place] [address] Dr. Anil Hayes IG % 1.7 % Critically high 0.0-0.5 [facility] Comment on above: Performed By: #### C BC #### [facility] [address] [place] [address] Dr. Anil Hayes LYMPH # 1.1 103/ul Critically low 1.2-3.8 [facility] Comment on above: Performed By: #### C BC #### [facility] [address] [place] [address] Dr. Anil Hayes Lymphocytes/100 WBC (Bld) 37.6 % Normal 20.5-60.0 [facility] Comment on above: Performed By: #### C BC #### [facility] [address] [place] [address] Dr. nAil Hayes MANUAL DIFF REQ NO Normal [facility] Comment on above: Performed By: #### C BC #### [facility] [address] [place] [address] Dr. Anil Hayes MCH (RBC) [Entitic mass] 29.9 pg Normal 25.9-34.0 [facility] Comment on above: Performed By: #### C BC #### [facility] [address] [address] [address] Anil Hayes MCHC (RBC) [Mass/Vol] 32.4 g/dL Normal 29.9-35.2 [facility] Comment on above: Performed By: #### C BC #### [facility] [address] [address] [address] Anil Hayes MCV (RBC) [Entitic vol] 92.3 fL Normal 80.0-94.0 [facility] Comment on above: Performed By: #### C BC #### [facility] [address] [address] [address] Anil Hayes MONO # 0.4 103/ul Normal 0.3-0.8 [facility] Comment on above: Performed By: #### C BC #### [facility] [address] [address] [address] Anil Hayes Monocytes/100 WBC (Bld) 12.9 % Critically high 1.7-12. 0 [facility] Comment on above: Performed By: #### C BC #### [facility] [address] [place] [address] Dr. Anil Hayes NEUT # 1.4 103/ul Normal 1.4-6.5 [facility] Comment on above: Performed By: #### C BC #### [facility] [address] [place] [address] Dr. Anil Hayes Neutrophils/100 WBC (Bld) 47.2 % Normal 43.0-75.0 [facility] Comment on above: Performed By: #### C BC #### [facility] [address] [address] [address] Anil Hayes Platelet mean volume (Bld) [Entitic vol] 9.3 fL Critically low 9.5-13.5 [facility] Comment on above: Performed By: #### C BC #### [facility] [address] [address] [address] Anil Hayes PLT 178 103/ul Normal 150-450 [facility] Comment on above: Performed By: #### C BC #### [facility] [address] [address] [address] Anil Hayes RBC 4.65 106/ul Critically low 4.70-6.10 [facility] Comment on above: Performed By: #### C BC #### [facility] [address] [place] [address] Dr. Anil Hayes WBC 2.9 103/ul Critically low 4.0-11.0 [facility] Comment on above: Performed By: #### C BC #### [facility] [address] [place] [address] Dr. Anil Hayes GLYCOHEMOGLOBIN A1Con 2021 ADA RECOMMENDATION SEE BELOW Normal [facility] Comment on above: Result Comment: ADA RECOMMENDED LIMIT 4.0 - 6.0 ADA THERAPEUTIC TARGET < 7.0 ACTION SUGGESTED > 7.0 Performed By: #### A 1C #### [facility] [address] [place] [address] Dr. Anil Hayes Glucose [Mass/Vol] 171 mg/dL Normal [facility] Comment on above: Performed By: #### A 1C #### [facility] [address] [place] [address] Dr. Anil Hayes HbA1c (Bld) [Mass fraction] 7.6 % Critically high 4.5-6.2 [facility] Comment on above: Performed By: #### A 1C #### [facility] [address] [place] [address] Dr. Anil Hayes IRONon 07-17-2022 Iron [Mass/Vol] 103.0 ug/dL Normal 65.0-175.0 [facility] Comment on above: Performed By: #### V ITB12, IRON #### [facility] [address] [place] [address] Dr. Anil Hayes PROF 14(COMP METB)on 022 Albumin [Mass/Vol] 4.0 g/dL Normal 3.4-5.0 [facility] Comment on above: Performed By: #### C BC, RETIC #### [facility] [address] [place] [address] Dr. Anil Hayes Albumin/Globulin [Mass ratio] 1.1 {ratio} Normal [facility] Comment on above: Performed By: #### C AMINATA, RETIC #### [facility] [address] [address] [address] Anil Hayes ALP [Catalytic activity/Vol] 63 U/L Normal 46-116 [facility] Comment on above: Performed By: #### C AMINATA, RETIC #### [facility] [address] [place] [address] Dr. Anil Hayes ALT [Catalytic activity/Vol] 23 U/L Normal 16-63 [facility] Comment on above: Performed By: #### C AMINATA, RETIC #### [facility] [address] [place] [address] Dr. Anil Hayes Anion gap [Moles/Vol] 11.8 mmol/L Normal [facility] Comment on above: Performed By: #### C AMINATA, RETIC #### [facility] [address] [place] [address] Dr. Anil Hayes AST [Catalytic activity/Vol] 16 U/L Normal 15-37 [facility] Comment on above: Performed By: #### C AMINATA, RETIC #### [facility] [address] [place] [address] Dr. Anil Hayes Bilirubin [Mass/Vol] 0.5 mg/dL Normal 0.2-1.0 [facility] Comment on above: Performed By: #### C AMINATA, RETIC #### [facility] [address] [place] [address] Dr. Anil Hayes Calcium [Mass/Vol] 8.9 mg/dL Normal 8.5-10.1 [facility] Comment on above: Performed By: #### C AMINATA, RETIC #### [facility] [address] [place] [address] Dr. Anil Hayes Chloride [Moles/Vol] 103 mmol/L Normal 98-107 [facility] Comment on above: Performed By: #### C AMINATA, RETIC #### [facility] [address] [address] [address] Anil Hayes CO2 [Moles/Vol] 26.5 mmol/L Normal 21.0-32.0 [facility] Comment on above: Performed By: #### C BC, RETIC #### [facility] [address] [place] [address] Dr. Anil Hayes Creatinine [Mass/Vol] 0.85 mg/dL Normal 0.70-1.30 [facility] Comment on above: Performed By: #### C BC, RETIC #### [facility] [address] [place] [address] Dr. Anil Hayes EGFR-AF SUDANESE >60 Normal >=60 [facility] Comment on above: Performed By: #### C BC, RETIC #### [facility] [address] [place] [address] Dr. Anil Hayes EGFR-NON AF SUDANESE >60 Normal >=60 [facility] Comment on above: Performed By: #### C BC, RETIC #### [facility] [address] [place] [address] Dr. Anil Hayes Globulin (S) [Mass/Vol] 3.8 g/dL Normal [facility] Comment on above: Performed By: #### C BC, RETIC #### [facility] [address] [place] [address] Dr. Anil Hayes Glucose [Mass/Vol] 141 mg/dL Critically high 74-106 [facility] Comment on above: Performed By: #### C BC, RETIC #### [facility] [address] [place] [address] Dr. Anil Hayes Potassium [Moles/Vol] 4.3 mmol/L Normal 3.5-5.1 [facility] Comment on above: Performed By: #### C BC, RETIC #### [facility] [address] [place] [address] Dr. Anil Hayes Protein [Mass/Vol] 7.8 g/dL Normal 6.4-8.2 [facility] Comment on above: Performed By: #### C BC, RETIC #### [facility] [address] [place] [address] Dr. Anil Hayes Sodium [Moles/Vol] 137 mmol/L Normal 136-145 [facility] Comment on above: Performed By: #### C BC, RETIC #### [facility] [address] [place] [address] Dr. Anil Hayes Urea nitrogen [Mass/Vol] 21.0 mg/dL Critically high 7.0-18.0 [facility] Comment on above: Performed By: #### C BC, RETIC #### [facility] [address] [place] [address] Dr. Anil Hayes Urea nitrogen/Creatinine [Mass ratio] 24.7 mg/mg Normal [facility] Comment on above: Performed By: #### C BC, RETIC #### [facility] [address] [place] [address] Dr. Anil Hayes TSHon 07-17-2022 TSH 2.834 uIU/mL Normal 0.358-3.740 [facility] Comment on above: Performed By: #### C MP, TSH #### [facility] [address] [place] [address] Dr. Anil Hayes VITAMIN B12on 07-17-2022 Cobalamin (Vitamin B12) [Mass/Vol] 380.0 pg/mL Normal 193.0-986.0 [facility] Comment on above: Performed By: #### V ITB12, IRON #### [facility] [address] [place] [address] Dr. Anil Hayes CBC AUTO DIFFon 01-29-2022 BASO # 0.0 103/ul Normal 0.0-0.1 [facility] Comment on above: Performed By: #### P ROLAC #### [facility] [address] [place] [address] Dr. Anil Hayes Basophils/100 WBC (Bld) 0.6 % Normal 0.2-2.0 [facility] Comment on above: Performed By: #### P ROLAC #### [facility] [address] [place] [address] Dr. Anil Hayes EO # 0.0 103/ul Normal 0.0-0.7 [facility] Comment on above: Performed By: #### P ROLAC #### [facility] [address] [address] [address] Anil Hayes Eosinophils/100 WBC (Bld) 0.6 % Critically low 0.9-7.0 [facility] Comment on above: Performed By: #### P ROLAC #### [facility] [address] [place] [address] Dr. Anil Hayes Erythrocyte distribution width (RBC) [Ratio] 14.2 % Normal 11.0-15.0 [facility] Comment on above: Performed By: #### P ROLAC #### [facility] [address] [place] [address] Dr. Anil Hayes Hematocrit (Bld) [Volume fraction] 42.2 % Normal 42.0-54.0 [facility] Comment on above: Performed By: #### P ROLAC #### [facility] [address] [place] [address] Dr. Anil Hayes Hemoglobin (Bld) [Mass/Vol] 13.4 g/dL Critically low 14.0-18.0 [facility] Comment on above: Performed By: #### P ROLAC #### [facility] [address] [place] [address] Dr. Anil Hayes IG # 0.05 10e3/ul Critically high 0.00-0.03 [facility] Comment on above: Performed By: #### P ROLAC #### [facility] [address] [place] [address] Dr. Anil Hayes IG % 1.5 % Critically high 0.0-0.5 [facility] Comment on above: Performed By: #### P ROLAC #### [facility] [address] [place] [address] Dr. Anil Hayes LYMPH # 1.2 103/ul Normal 1.2-3.8 [facility] Comment on above: Performed By: #### P ROLAC #### [facility] [address] [place] [address] Dr. Anil Hayes Lymphocytes/100 WBC (Bld) 36.3 % Normal 20.5-60.0 [facility] Comment on above: Performed By: #### P ROLAC #### [facility] [address] [place] [address] Dr. Anil Hayes MANUAL DIFF REQ NO Normal [facility] Comment on above: Performed By: #### P ROLAC #### [facility] [address] [place] [address] Dr. Anil Hayes MCH (RBC) [Entitic mass] 30.0 pg Normal 25.9-34.0 [facility] Comment on above: Performed By: #### P ROLAC #### [facility] [address] [place] [address] Dr. Anil Hayes MCHC (RBC) [Mass/Vol] 31.8 g/dL Normal 29.9-35.2 [facility] Comment on above: Performed By: #### P ROLAC #### [facility] [address] [place] [address] Dr. Anil Hayes MCV (RBC) [Entitic vol] 94.4 fL Critically high 80.0-94 .0 [facility] Comment on above: Performed By: #### P ROLAC #### [facility] [address] [place] [address] Dr. Anil Hayes MONO # 0.4 103/ul Normal 0.3-0.8 [facility] Comment on above: Performed By: #### P ROLAC #### [facility] [address] [place] [address] Dr. Anil Hayes Monocytes/100 WBC (Bld) 13.1 % Critically high 1.7-12. 0 [facility] Comment on above: Performed By: #### P ROLAC #### [facility] [address] [place] [address] Dr. Anil Hayes NEUT # 1.6 103/ul Normal 1.4-6.5 [facility] Comment on above: Performed By: #### P ROLAC #### [facility] [address] [place] [address] Dr. Anil Hayes Neutrophils/100 WBC (Bld) 47.9 % Normal 43.0-75.0 [facility] Comment on above: Performed By: #### P ROLAC #### [facility] [address] [place] [address] Dr. Anil Hayes Platelet mean volume (Bld) [Entitic vol] 9.9 fL Normal 9.5-13.5 [facility] Comment on above: Performed By: #### P ROLAC #### [facility] [address] [place] [address] Dr. Anil Hayes PLT 161 103/ul Normal 150-450 [facility] Comment on above: Performed By: #### P ROLAC #### [facility] [address] [place] [address] Dr. Anil Hayes RBC 4.47 106/ul Critically low 4.70-6.10 [facility] Comment on above: Performed By: #### P ROLAC #### [facility] [address] [place] [address] Dr. Anil Hayes WBC 3.3 103/ul Critically low 4.0-11.0 [facility] Comment on above: Performed By: #### P ROLAC #### [facility] [address] [place] [address] Dr. Anil Hayes CBC AUTO DIFFon 01-10-2022 BASO # 0.0 103/ul Normal 0.0-0.1 [facility] Comment on above: Performed By: #### C BC, RETIC #### [facility] [address] [place] [address] Dr. Anil Hayes Basophils/100 WBC (Bld) 0.3 % Normal 0.2-2.0 [facility] Comment on above: Performed By: #### C BC, RETIC #### [facility] [address] [place] [address] Dr. Anil Hayes EO # 0.0 103/ul Normal 0.0-0.7 [facility] Comment on above: Performed By: #### C BC, RETIC #### [facility] [address] [place] [address] Dr. Anil Hayes Eosinophils/100 WBC (Bld) 0.6 % Critically low 0.9-7.0 [facility] Comment on above: Performed By: #### C BC, RETIC #### [facility] [address] [place] [address] Dr. Anil Hayes Erythrocyte distribution width (RBC) [Ratio] 13.9 % Normal 11.0-15.0 [facility] Comment on above: Performed By: #### C BC, RETIC #### [facility] [address] [place] [address] Dr. Anil Hayes Hematocrit (Bld) [Volume fraction] 42.2 % Normal 42.0-54.0 [facility] Comment on above: Performed By: #### C AMINATA, RETIC #### [facility] [address] [place] [address] Dr. Anil Hayes Hemoglobin (Bld) [Mass/Vol] 13.2 g/dL Critically low 14.0-18.0 [facility] Comment on above: Performed By: #### C AMINATA, RETIC #### [facility] [address] [place] [address] Dr. Anil Hayes IG # 0.06 10e3/ul Critically high 0.00-0.03 [facility] Comment on above: Performed By: #### C AMINATA, RETIC #### [facility] [address] [place] [address] Dr. Anil Hayes IG % 1.9 % Critically high 0.0-0.5 [facility] Comment on above: Performed By: #### C AMINATA, RETIC #### [facility] [address] [place] [address] Dr. Anil Hayes LYMPH # 1.2 103/ul Normal 1.2-3.8 [facility] Comment on above: Performed By: #### C BC, RETIC #### [facility] [address] [place] [address] Dr. Anil Hayes Lymphocytes/100 WBC (Bld) 38.0 % Normal 20.5-60.0 [facility] Comment on above: Performed By: #### C BC, RETIC #### [facility] [address] [place] [address] Dr. Anil Hayes MANUAL DIFF REQ NO Normal [facility] Comment on above: Performed By: #### C BC, RETIC #### [facility] [address] [place] [address] Dr. Anil Hayes MCH (RBC) [Entitic mass] 29.7 pg Normal 25.9-34.0 [facility] Comment on above: Performed By: #### C BC, RETIC #### [facility] [address] [place] [address] Dr. Anil Hayes MCHC (RBC) [Mass/Vol] 31.3 g/dL Normal 29.9-35.2 [facility] Comment on above: Performed By: #### C AMINATA, RETIC #### [facility] [address] [place] [address] Dr. Anil Hayes MCV (RBC) [Entitic vol] 94.8 fL Critically high 80.0-94 .0 [facility] Comment on above: Performed By: #### C AMNIATA, RETIC #### [facility] [address] [place] [address] Dr. Anil Hayes MONO # 0.4 103/ul Normal 0.3-0.8 [facility] Comment on above: Performed By: #### C AMINATA, RETIC #### [facility] [address] [place] [address] Dr. Anil Hayes Monocytes/100 WBC (Bld) 11.8 % Normal 1.7-12.0 [facility] Comment on above: Performed By: #### C AMINATA, RETIC #### [facility] [address] [place] [address] Dr. Anil Hayes NEUT # 1.5 103/ul Normal 1.4-6.5 [facility] Comment on above: Performed By: #### C BC, RETIC #### [facility] [address] [place] [address] Dr. Anil Hayes Neutrophils/100 WBC (Bld) 47.4 % Normal 43.0-75.0 [facility] Comment on above: Performed By: #### C BC, RETIC #### [facility] [address] [address] [address] Anil Hayes Platelet mean volume (Bld) [Entitic vol] 9.8 fL Normal 9.5-13.5 [facility] Comment on above: Performed By: #### C BC, RETIC #### [facility] [address] [address] [address] Anil Hayes PLT 197 103/ul Normal 150-450 [facility] Comment on above: Performed By: #### C BC, RETIC #### [facility] [address] [address] [address] Anil Hayes RBC 4.45 106/ul Critically low 4.70-6.10 [facility] Comment on above: Performed By: #### C AMINATA, RETIC #### [facility] [address] [address] [address] Ainl Hayes WBC 3.1 103/ul Critically low 4.0-11.0 [facility] Comment on above: Performed By: #### C AMINATA, RETIC #### [facility] [address] [place] [address] Dr. Anil Hayes GLYCOHEMOGLOBIN A1Con 2021 ADA RECOMMENDATION SEE BELOW Normal [facility] Comment on above: Result Comment: ADA RECOMMENDED LIMIT 4.0 - 6.0 ADA THERAPEUTIC TARGET < 7.0 ACTION SUGGESTED > 7.0 Performed By: #### A 1C #### [facility] [address] [place] [address] Dr. Anil Hayes Glucose [Mass/Vol] 163 mg/dL Normal [facility] Comment on above: Performed By: #### A 1C #### [facility] [address] [place] [address] Dr. Anil Hayes HbA1c (Bld) [Mass fraction] 7.3 % Critically high 4.5-6.2 [facility] Comment on above: Performed By: #### A 1C #### [facility] [address] [place] [address] Dr. Anil Hayes LIPID PROFILEon 01-10-2022 CHOL-HDL RATIO NORM SEE BELOW Normal [facility] Comment on above: Result Comment: 3.3 - 4.4 LOW RISK 4.4 - 7.1 AVERAGE RISK 7.1 - 11.0 MODERATE RISK >11.0 HIGH RISK Performed By: #### P ROLAC #### [facility] [address] [address] [address] Anil Hayes Cholesterol [Mass/Vol] 106 mg/dL Normal <=200 [facility] Comment on above: Performed By: #### P ROLAC #### [facility] [address] [address] [address] Anil Hayes Cholesterol in HDL [Mass/Vol] 35 mg/dL Critically low 40-60 [facility] Comment on above: Performed By: #### P ROLAC #### [facility] [address] [address] [address] Anil Hayes Cholesterol in LDL [Mass/Vol] 50.4 mg/dL Normal [facility] Comment on above: Performed By: #### P ROLAC #### [facility] [address] [address] [address] Anil Hayes Cholesterol.total/Huong sterol in HDL [Mass ratio] 3.0 {ratio} Normal [facility] Comment on above: Performed By: #### P ROLAC #### [facility] [address] [address] [address] Anil Hayes HDL NORMAL > or = 60 mg/dl - LO W CARDIOVASCULAR RISK <40 mg/dl - HIGH CARDIOVASCULAR RISK Normal [facility] Comment on above: Performed By: #### P ROLAC #### [facility] [address] [address] [address] Anil Hayes LDL CALC NORMAL SEE BELOW Normal [facility] Comment on above: Result Comment: <100 mg/dl OPTIMAL 100 - 129 mg/dl NEAR OR ABOVE OPTIMAL 130 - 159 mg/dl BORDERLINE HIGH 160 - 189 mg/dl HIGH >190 mg/dl VERY HIGH Performed By: #### P ROLAC #### [facility] [address] [address] [address] Anil Hayes Triglyceride [Mass/Vol] 103 mg/dL Normal <=150 [facility] Comment on above: Performed By: #### P ROLAC #### [facility] [address] [address] [address] Anil Hayes VLDL CALC 20.6 mg/dL Normal [facility] Comment on above: Performed By: #### P ROLAC #### [facility] [address] [address] [address] Anil Hayes MICROALBUMIN, RAND URon 06-0 mALB 3.3 mg/L Normal <=30.0 [facility] Comment on above: Performed By: #### C BC, RETIC #### [facility] [address] [address] [address] Anil Hayes PROF 14(COMP METB)on 022 Albumin [Mass/Vol] 4.0 g/dL Normal 3.4-5.0 [facility] Comment on above: Performed By: #### P ROLAC #### [facility] [address] [place] [address] Dr. Anil Hayes Albumin/Globulin [Mass ratio] 1.2 {ratio} Normal [facility] Comment on above: Performed By: #### P ROLAC #### [facility] [address] [place] [address] Dr. Anil Hayes ALP [Catalytic activity/Vol] 58 U/L Normal 46-116 [facility] Comment on above: Performed By: #### P ROLAC #### [facility] [address] [place] [address] Dr. Anil Hayes ALT [Catalytic activity/Vol] 29 U/L Normal 16-63 [facility] Comment on above: Performed By: #### P ROLAC #### [facility] [address] [address] [address] Anil Hayes Anion gap [Moles/Vol] 10.8 mmol/L Normal [facility] Comment on above: Performed By: #### P ROLAC #### [facility] [address] [place] [address] Dr. Anil Hayes AST [Catalytic activity/Vol] 12 U/L Critically low 15-37 [facility] Comment on above: Performed By: #### P ROLAC #### [facility] [address] [address] [address] Anil Hayes Bilirubin [Mass/Vol] 0.5 mg/dL Normal 0.2-1.0 [facility] Comment on above: Performed By: #### P ROLAC #### [facility] [address] [address] [address] Anil Hayes Calcium [Mass/Vol] 8.7 mg/dL Normal 8.5-10.1 [facility] Comment on above: Performed By: #### P ROLAC #### [facility] [address] [address] [address] Anil Hayes Chloride [Moles/Vol] 108 mmol/L Critically high 98-107 [facility] Comment on above: Performed By: #### P ROLAC #### [facility] [address] [address] [address] Anil Hayes CO2 [Moles/Vol] 26.7 mmol/L Normal 21.0-32.0 [facility] Comment on above: Performed By: #### P ROLAC #### [facility] [address] [address] [address] Anil Hayes Creatinine [Mass/Vol] 0.72 mg/dL Normal 0.70-1.30 [facility] Comment on above: Performed By: #### P ROLAC #### [facility] [address] [address] [address] Anil Hayes EGFR-AF SUDANESE >60 Normal >=60 [facility] Comment on above: Performed By: #### P ROLAC #### [facility] [address] [address] [address] Anil Hayes EGFR-NON AF SUDANESE >60 Normal >=60 [facility] Comment on above: Performed By: #### P ROLAC #### [facility] [address] [address] [address] Anil Hayes Globulin (S) [Mass/Vol] 3.4 g/dL Normal [facility] Comment on above: Performed By: #### P ROLAC #### [facility] [address] [address] [address] Anil Hayes Glucose [Mass/Vol] 127 mg/dL Critically high 74-106 [facility] Comment on above: Performed By: #### P ROLAC #### [facility] [address] [address] [address] Anil Hayes Potassium [Moles/Vol] 4.5 mmol/L Normal 3.5-5.1 [facility] Comment on above: Performed By: #### P ROLAC #### [facility] [address] [address] [address] Anil Hayes Protein [Mass/Vol] 7.4 g/dL Normal 6.4-8.[address] [facility] Comment on above: Performed By: #### P ROLAC #### [facility] [address] [address] [address] Anil Hayes Sodium [Moles/Vol] 141 mmol/L Normal 136-145 [facility] Comment on above: Performed By: #### P ROLAC #### [facility] [address] [address] [address] Anil Hayes Urea nitrogen [Mass/Vol] 20.0 mg/dL Critically high 7.0-18.0 [facility] Comment on above: Performed By: #### P ROLAC #### [facility] [address] [address] [address] Anil Hayes Urea nitrogen/Creatinine [Mass ratio] 27.8 mg/mg Normal [facility] Comment on above: Performed By: #### P ROLAC #### [facility] [address] [address] [address] Anil Hayes UA RANDOM W/MICROSCOPICon AMORPHOUS CRYSTALS MANY Normal [facility] Comment on above: Performed By: #### P ROLAC #### [facility] [address] [address] [address] Anil Hayes BACTERIA NONE SEEN Normal NONE SEEN [facility] Comment on above: Performed By: #### P ROLAC #### [facility] [address] [address] [address] Anil Hayes Bilirubin Ql (U) Negative Normal NEGATIVE [facility] Comment on above: Performed By: #### P ROLAC #### [facility] [address] [address] [address] Anil Hayes CAST NONE SEEN Normal NONE SEEN [facility] Comment on above: Performed By: #### P ROLAC #### [facility] [address] [address] [address] Anil Hayes Clarity (U) CLOUDY Abnormal CLEAR [facility] Comment on above: Performed By: #### P ROLAC #### [facility] [address] [place] [address] Dr. Anil Hayes Color (U) LT. YELLOW Normal YELLOW [facility] Comment on above: Performed By: #### P ROLAC #### [facility] [address] [place] [address] Dr. Anil Hayes Crystals LM Nom (Urine sed) SEEN Abnormal NONE SEEN [facility] Comment on above: Performed By: #### P ROLAC #### [facility] [address] [place] [address] Dr. Anil Hayes Epithelial cells LM Ql (Urine sed) FEW Abnormal NONE SEEN /RARE [facility] Comment on above: Performed By: #### P ROLAC #### [facility] [address] [place] [address] Dr. Anil Hayes Glucose Ql (U) >1000 Abnormal NEGATIVE [facility] Comment on above: Performed By: #### P ROLAC #### [facility] [address] [place] [address] Dr. Anil Hayes Hemoglobin Ql (U) Negative Normal NEGATIVE [facility] Comment on above: Performed By: #### P ROLAC #### [facility] [address] [place] [address] Dr. Anil Hayes Ketones Ql (U) Negative Normal NEGATIVE [facility] Comment on above: Performed By: #### P ROLAC #### [facility] [address] [place] [address] Dr. Anil Hayes LEUKOCYTES Negative Normal NEGATIVE [facility] Comment on above: Performed By: #### P ROLAC #### [facility] [address] [place] [address] Dr. Anil Hayes MUCOUS NONE SEEN Normal NONE SEEN [facility] Comment on above: Performed By: #### P ROLAC #### [facility] [address] [place] [address] Dr. Anil Hayes Nitrite Ql (U) Negative Normal NEGATIVE [facility] Comment on above: Performed By: #### P ROLAC #### [facility] [address] [place] [address] Dr. Anil Hayes pH (U) 6.0 [pH] Normal 5-9 [facility] Comment on above: Performed By: #### P ROLAC #### [facility] [address] [place] [address] Dr. Anil Hayes RBC NONE SEEN Abnormal 0-2 [facility] Comment on above: Performed By: #### P ROLAC #### [facility] [address] [place] [address] Dr. Anil Hayes SPEC GRAVITY >=1.030 Abnormal 1.005-<=1.02 5 [facility] Comment on above: Performed By: #### P ROLAC #### [facility] [address] [place] [address] Dr. Anil Hayes UA PROTEIN Negative Normal NEGATIVE/ TRACE [facility] Comment on above: Performed By: #### P ROLAC #### [facility] [address] [place] [address] Dr. Anil Hayes Urobilinogen Qn (U) 0.2 {[place]ina'U}/dL Normal 0.2 - 1. 0 [facility] Comment on above: Performed By: #### P ROLAC #### [facility] [address] [place] [address] Dr. Anil Hayes WBC NONE SEEN Normal NONE SEEN [facility] Comment on above: Performed By: #### P ROLAC #### [facility] [address] [place] [address] Dr. Anil Hayes Vital Signs Date Time Vital Sign Value Performing Clinician Facility 02-17-2024 08:43-0400 Body height 182.88 cm Erendira Aichholz Work Phone: [facility] 02-17-2024 08:43-0400 Body mass index (BMI) [Ratio] 27.2 kg/m2 Erendira Aichholz Work Phone: [facility] 02-17-2024 08:43-0400 Body temperature 97.2 [degF] Erendira Aichholz Work Phone: [facility] 02-17-2024 08:43-0400 Body weight 91.17 kg Erendira Aichholz Work Phone: [facility] 02-17-2024 08:43-0400 Diastolic blood pressure 71 mm[Hg] Erendira Aichholz Work Phone: [facility] 02-17-2024 08:43-0400 Heart rate 72 /min Erendira Aichholz Work Phone: [facility] 02-17-2024 08:43-0400 Respiratory rate 16 /min Erendira Aichholz Work Phone: [facility] 02-17-2024 08:43-0400 SaO2% (BldA) [Mass fraction] 97 % Erendira Aichholz Work Phone: [facility] 02-17-2024 08:43-0400 Systolic blood pressure 119 mm[Hg] Erendira Aichholz Work Phone: [facility] 02-14-2023 09:58-0400 Body height 182.88 cm MD Nadir Naylor Work Phone: [facility] 02-14-2023 09:58-0400 Body weight 92.94 kg MD Nadir Naylor Work Phone: [facility] 02-14-2023 09:58-0400 Diastolic blood pressure 75 mm[Hg] MD Nadir Naylor Work Phone: [facility] 02-14-2023 09:58-0400 Heart rate 76 /min MD Nadir Naylor Work Phone: [facility] 02-14-2023 09:58-0400 Respiratory rate 18 /min MD Nadir Naylor Work Phone: [facility] 02-14-2023 09:58-0400 SaO2% (BldA) [Mass fraction] 97 % MD Nadir Naylor Work Phone: [facility] 02-14-2023 09:58-0400 Systolic blood pressure 116 mm[Hg] MD Nadir Naylor Work Phone: [facility] 10-30-2022 13:07-0400 Blood Pressure Location Angela BURT [facility] 10-30-2022 13:07-0400 Diastolic blood pressure 86 mm[Hg] Angela BURT [facility] 10-30-2022 13:07-0400 Heart rate 80 /min Angela NILL [facility] [place] 10-30-2022 13:07-0400 Respiratory rate 16 /min Angela DEUTSCHL [facility] [place] 10-30-2022 13:07-0400 Systolic blood pressure 142 mm[Hg] Angela DEUTSCHL [facility] 08-09-2022 09:05-0500 Body height 182.88 cm MD Nadir Naylor Work Phone: [facility] 08-09-2022 09:05-0500 Body temperature 98 [degF] MD Nadir Naylor Work Phone: [facility] 08-09-2022 09:05-0500 Body weight 92.9 kg MD Nadir Naylor Work Phone: [facility] 08-09-2022 09:05-0500 Diastolic blood pressure 78 mm[Hg] MD Nadir Naylor Work Phone: [facility] 08-09-2022 09:05-0500 Heart rate 80 /min MD Nadir Naylor Work Phone: [facility] 08-09-2022 09:05-0500 Respiratory rate 18 /min MD Nadir Naylor Work Phone: [facility] 08-09-2022 09:05-0500 SaO2% (BldA) [Mass fraction] 97 % MD Nadir Naylor Work Phone: [facility] 08-09-2022 09:05-0500 Systolic blood pressure 142 mm[Hg] MD Nadir Naylor Work Phone: [facility] 02-19-2022 09:41-0400 Blood Pressure Location Miguel PINO [facility] 02-19-2022 09:41-0400 Diastolic blood pressure 84 mm[Hg] Migueljulien PINO [facility] 02-19-2022 09:41-0400 Heart rate 82 /min Miguel PINO [facility] 02-19-2022 09:41-0400 Systolic blood pressure 132 mm[Hg] Miguel PINO [facility] 12-18-2021 09:15-0400 Body temperature 98.8 [degF] MD Jac Dixon Work Phone: [facility] 12-18-2021 09:15-0400 Body weight 93.89 kg MD Jac Dixon Work Phone: [facility] 12-18-2021 09:15-0400 Diastolic blood pressure 84 mm[Hg] MD Jac Dixon Work Phone: [facility] 12-18-2021 09:15-0400 Heart rate 91 /min MD Jac Dixon Work Phone: [facility] 12-18-2021 09:15-0400 Respiratory rate 22 /min MD Jac Dixon Work Phone: [facility] 12-18-2021 09:15-0400 SaO2% (BldA) [Mass fraction] 98 % MD Jac Dixon Work Phone: [facility] 12-18-2021 09:15-0400 Systolic blood pressure 129 mm[Hg] MD Jac Dixon Work Phone: [facility] 10-18-2021 10:23-0400 Body height 182.88 cm MD Jac Dixon Work Phone: [facility] [id number] 00:00-0400 >na< Nadir Naylor [facility] Encounters Encounter Date Encounter Type Care Provider Facility Start: 06-22-2024 ambulatory Miguel Castaneda ty:EU Malick Start: 04-21-2024 End: 04-21-2024 ambulatory YEVGENIY SALTER Not Available Start: 04-17-2024 End: 04-17-2024 ambulatory AMAN GO Not Available Start: 04-14-2024 End: 04-14-2024 ambulatory AMAN GO Not Available Start: 04-10-2024 End: 04-10-2024 ambulatory DINORA FE Not Available Start: 04-08-2024 End: 04-08-2024 ambulatory DINORA FE Not Available Start: 04-02-2024 End: 04-02-2024 ambulatory DINORA FE Not Available Start: 03-31-2024 End: 03-31-2024 ambulatory ELVIA ELDER Not Available Start: 03-25-2024 End: 03-25-2024 ambulatory NADIR Arreola [facility] Start: 03-24-2024 End: 03-24-2024 ambulatory ISABELA AMAYA Not Available Start: 03-20-2024 End: 03-20-2024 ambulatory ELVIA ELDER Not Available Start: 03-18-2024 End: 03-18-2024 ambulatory GANGA NUÑEZ Not Available Start: 03-18-2024 End: 03-18-2024 ambulatory GISELA WAYNE Not Available Start: 03-03-2024 End: 03-03-2024 ambulatory DESTIN CONNELLY Not Available Start: 02-17-2024 End: 02-17-2024 Patient encounter procedure Erendira Swethaz Work Phone: [facility] Work Phone: Start: 02-17-2024 Registered Recurring Erendira Claudioh herlinda Work Phone: [facility] Work Phone: Start: 02-17-2024 End: 02-17-2024 ambulatory Erendira Carreon Claudiohholz Work Phone: [facility] Work Phone: Start: 02-11-2024 End: 02-11-2024 ambulatory ERENDIRA AICHHOLZ Not Available Start: 02-04-2024 End: 02-04-2024 ambulatory MD Nadir Naylor Work Phone: [facility] Work Phone: Start: 02-04-2024 End: 02-04-2024 Patient encounter procedure MD Nadir Naylor Work Phone: [facility] [place] Work Phone: Start: 02-04-2024 Registered Recurring MD Nadir Naylor Work Phone: [facility] Work Phone: Start: 11-05-2023 End: 11-05-2023 ambulatory DESTIN CONNELLY Not Available Start: 10-24-2023 End: 03-21-2024 ambulatory ERENDIRA AICHHOLZ Not Available Start: 10-07-2023 End: 10-07-2023 ambulatory ERENDIRA AICHHOLZ Not Available Start: 08-13-2023 End: 08-13-2023 ambulatory ERENDIRA AICHHOLZ Not Available Start: 07-09-2023 End: 07-09-2023 ambulatory LIAT TIDWELL Not Available Start: 03-12-2023 ambulatory PCP UNKNOWN Facility:9 [id number] Start: 03-12-2023 Office outpatient visit 15 minutes Nadir Naylor Dept. of Dermatology Start: 02-25-2023 End: 02-25-2023 ambulatory Miguel PINO Facility:[facility] Start: 11-14-2022 End: 11-14-[address] ANGELA BURT . Facility:H1 Start: 10-30-2022 End: 10-30-2022 Patient encounter procedure Angela BURT General Surgery Henri/Clarence Teresa Start: 09-18-[address] Nadir Naylor Facility:[id number] Start: 09-18-[address] Nadir Naylor Facility:[id number] Start: 09-17-2022 End: 09-18-2022 Office outpatient visit 15 minutes Nadir Naylor Dept. 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 of Dermatology Start: 02-19-2022 End: 02-19-2022 Patient encounter procedure Miguel PINO [facility] Start: 02-07-2022 End: 02-07-2022 Office outpatient visit 15 minutes Nadir Naylor Dept. of Dermatology Start: 01-29-2022 End: 01-30-2022 ambulatory AIR DRIER MACHINE OPERATOR ERENDIRA SALTERKARINAPolina Facility:H1 Start: 01-10-2022 End: 01-11-2022 ambulatory AIR DRIER MACHINE OPERATOR ERENDIRA HILL Facility:H1 Start: 12-18-2021 End: 12-18-2021 Registered Recurring MD Jac Dixon [facility] Start: 09-11-2021 End: 09-12-2021 Office [...] lesions Nadir Naylor Start: 01-10-2022 PSA screening AIR DRIER MACHINE OPERATOR ERENDIRA HILL Comment on above: Performed By: #### C BC, RETIC #### [facility] [address] [place] [address] Dr. Anil Hayes Start: 09-11-2021 End: 09-12-2021 Established Office Visit Level 3 ~GC GaroanyijaydenElena Nadir Naylor Start: 09-11-2021 End: 09-12-2021 Established Office Visit Level 3 ~GC Elnea Lucio Start: 09-11-2021 End: 09-12-2021 Punch biopsy skin single lesion Nadir Naylor Start: 08-15-2021 End: 08-16-2021 Established Office Visit Level 3 Elena Perdomo Start: 08-15-2021 End: 08-16-2021 Punch biopsy skin single lesion Nadir Naylor Start: 05-31-2021 End: 05-31-2021 Destruction premalignant lesion 1st Nadir Naylor Start: 05-31-2021 End: 05-31-2021 Established Office Visit Level 3 Guillermo Pemberton Start: 11-02-2020 End: 11-02-2020 Punch biopsy skin single lesion Nadir Rolando Start: 05-02-2010 Cystoscopy Miguel GRAHAM Colonoscopy Angela BURT Extraction of cataract Jason PINO Laser assisted in si tu keratomileusis Angela BURT Nasal polypectomy Angela NI LL Nasal polypectomy Angela NI LL Comment on above: x 2 Repair of meniscus Angela RODRIGUEZ Tonsillectomy Miguel PINO Plan of Treatment Date Care Activity Detail Author Comprehensive metabo lic 1999 panel - Serum or Plasma [facility] enter Comprehensive metabo lic 1999 panel - Serum or Plasma [facility] enter Computed tomography for radiotherapy planning [facility] enter Lactate dehydrogenas e [Enzymatic activity/volume] in Unspecified specimen [facility] enter [facility] Immunizations Immunization Date Immunization Notes Care Provider Fa dayana 05-05-2022 influenza virus vaccine, unspecified formulation Angela HENRI [facility] [place] 05-29-2021 SARS-CoV-2 (COVID-19 ) mRNA BNT-162b2 vax Angela DEUTSCHManuela [facility] [place] 10-10-2020 SARS-CoV-2 (COVID-19 ) Ad26 vaccine, recombinant Angela BURT [facility] Comment on above: Result Comment: 2022: [id number] 1955 pneumococcal conjugate vaccine, 7 valent Nadir Naylor Dept. of Dermatology NEGATED: Highlighted row has not occurred!02-19-2022 SARS-CoV-2 mRNA (tozinameran 5y-11y) vaccine Miguel MARILIN [facility] Payers Date Payer Category Payer Self-pay [id number] 2021 Unknown [id number] 1959 Medicare [id number] 1959 Unknown [id number] 1956 Unknown [id number] 2.16.84 0.1.509696.3.579.2.593 1956 Unknown [id number] 2.16.84 0.1.354977.3.579.2.593 1956 Unknown [id number] 2.16.84 0.1.501235.3.579.2.593 1956 Unknown [id number] 2.16.84 0.1.125330.3.579.2.593 1956 Unknown [id number] 2.16.84 0.1.712797.3.579.2.593 1956 Unknown [id number] 2.16.84 0.1.732169.3.579.2.593 1956 Unknown [id number] 2.16. 840.1.836527.3.579.2.356 1956 Unknown [id number] 2.16. 840.1.666563.3.579.2.356 1956 Unknown [id number] 2.16. 840.1.720356.3.579.2.356 1956 Unknown [id number] 2.16.8 40.1.987390.3.579.2.727 1956 Unknown [id number] 2.16.8 40.1.449391.3.579.2.727 1956 Unknown [id number] 2.16.8 40.1.371045.3.579.2.1244 1956 Unknown [id number] 2.16.84 0.1.659275.3.579.2.1259 1956 Unknown [id number] 2.16.84 0.1.955399.3.579.2.1259 1956 Unknown [id number] 2.16.84 0.1.698254.3.579.2.1259 1956 Unknown [id number] 2.16.84 0.1.324570.3.579.2.125 1956 Unknown [id number] 2.16.84 0.1.902307.3.579.2.1259 1956 Unknown [id number] 2.16.84 0.1.849043.3.579.2.125 1956 Unknown [id number] 2.16.84 0.1.207442.3.579.2.1258 1956 Unknown [id number] 2.16.84 0.1.214136.3.579.2.1258 1956 Unknown [id number] 2.16.84 0.1.158254.3.579.2.1258 1956 Unknown [id number] 2.16.84 0.1.730441.3.579.2.1258 1956 Unknown [id number] 2.16.84 0.1.584227.3.579.2.1258 1956 Unknown [id number] 2.16.84 0.1.686286.3.579.2.1258 1956 Unknown [id number] 2.16.84 0.1.683941.3.579.2.1258 1956 Unknown [id number] 2.16.84 0.1.655845.3.579.2.1258 1956 Unknown [id number] 2.16.84 0.1.356662.3.579.2.1258 1956 Unknown [id number] 2.16.84 0.1.199460.3.579.2.1258 1956 Unknown [id number] 2.16.84 0.1.257316.3.579.2.1258 1956 Unknown [id number] 2.16.84 0.1.557960.3.579.2.1258 1956 Unknown [id number] 2.16.840 .1.591226.3.579.2.1259 Unknown [place] BC/BS [id number] Unknown [id number] Unknown [id number] 2.16.8 40.1.645199.3.579.2.531 Unknown [id number] 2.16.8 40.1.120623.3.579.2.531 Social History Date Type Detail Facility Start: 11-07-2020 Dept. of D ermatology Start: 1955 End: 1955 Sex Assigned At Male [facility] Start: 12-18-2021 End: 02-17-2024 Tobacco smoking status NHIS Never smoked tobacco (finding) [facility] Start: 02-17-2021 Tobacco smoking status Ex-smoker (fi nding) [facility] Sex Assigned At Male [facility] Tobacco smoking status Never Gener al [facility] [place] Goals Date Patient Goal Desired Activity /State Functional Status Date Assessment Result Facility 10-30-2022 Functional Status N/A General De[facility] 02-19-2022 Functional Status N/A [facility] Clinical Notes 10-19-2021 to 11-14-2022 Note Date [...] recovery room in good condition. CC: Erendira Hill CNP [facility] 07-16-2022 Progress note Note Date/Time July 16, 2022 8:59[facility] [place] [address] Rad Onc Follow Up Note - OP Signed Patient: Macario Farfan MR#: [id number] : 1955 Acct:[id number] Age/Sex: 67 / M Type: REG RCR [...] the anterior and posterior vertex here at [facility] on November 15, 2021. Planning images below. [...] has been evaluated by Dr. Naylor at [facility] found to have a biopsy (February 07, [...] signed by Jac Dixon MD> 07/16/22 1025 [facility] Work Phone: 1(400) 172-401807-18-2022 Hospital Discharge instructions Patient Education 02/19/2022 10:02:28 [...] urethra. Follow these instructions at home: Take lzpr-rds-zwuvami and prescription medicines only as told by [...] 07/22/2006 Document Revised: 06/16/2019 Document Reviewed: 08/26/2017 [employer] Patient Education 2020 [employer]. Follow Up Care 02/17/2021 09:37:58 With:MARILIN RUIZ, Miguel Perez, PEDRITOL Address: [facility] [address] , [place] [phone] When:Within 1 Year(s) Comments:1 year with PSA [facility] 07-07-2022 Progress note Author Jac Dixon [facility] February 08, 2022 4:08pm Note Date/Time December 18, 2021 8:50a m [facility] [place] [address] Rad Onc Follow Up Note - OP Signed with Addenda Patient: Macario Farfan MR#: [id number] : 1955 Acct:[id number] Age/Sex: 66 / M Type: REG RCR [...] signed by Jac Dixon MD> 12/18/21 0927 [facility] Work Phone: 1(372) 622-901003-17-2022 Consult note Author Jac Dixon [facility] October 19, 2021 11:56am Note Date/Time October 17, 2021 11: 49am [facility] [place] [address] Rad Onc Consult Note - OP Signed Patient: Macario Farfan MR#: [id number] : 1955 Acct:[id number] Age/Sex: 66 / M Type: REG RCR [...] patient education, answering questions, and coordinating care. [facility] - Service Date/Time Date: 10/18/21 Diagnosis: 65-year-old [...] extremities within normal limits Neuro: grossly [facility] Medical History Medical History: Medical History [...] signed by Jac Dixon MD> 10/19/21 1156 [facility] Work Phone: Consult note Author Malorie Sravanthimichaelgill [facility] August 09, 2022 12:04pm Note Date/Time August 09, 2022 9: 57am [facility] [place] [address] Hem/Onc Consult Note - OP Signed Patient: Macario Farfan MR#: [id number] : 1955 Acct:[id number] Age/Sex: 67 / M Type: REG RCR Copies to: NON STAFF Nadir Naylor MD~ HPI Date/Time of Service: Date of Service: 08/09/2022 Time of Service: 09:56 Referring Provider/PCP: Referring Provider: Nadir Naylor MD PCP: NON STAFF - History of Present Illness Reason for Consultation: Leukopenia; history of cutaneous B cell lymphoma (scalp) Chief Complaint: [facility] Outside labs. Patient reports fatigue [...] He follows both Dr. Nadir Naylor at [facility] and Dr. 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 Completed definitive radiation 36 Lopez in [address] [facility] (Dr. Bennett) in February 2021. Diagnosed with [...] 07/17/2022: WBC count - 2.9; Hgb 13.9; uahlokezqg15.9; normal indices and RDW. Platelet count- 178 with ANC?1400. Normal renal and hepatic function with B12?380 and TSH?2.8. Hemoglobin A1C - 7.6 In review of past laboratories, he has documented mild leukopenia without neutropenia dating back to at least May 2020. May 2020: WBC - 4.1; ANC-2700 November 2020: WBC- 3.5; ANC-1900 January 2022: WBC- 3.1; ANC- 1500 and WBC- 3.3; ANC-1600 [facility] Medical History Medical History: Medical History [...] 07/17/2022: WBC count - 2.9; Hgb 13.9; rtmfifzwxt72.9; normal indices and RDW. Platelet count- 178 [...] as his ANC has ranged anywhere between 1444-6402 consistently. This is likely a normal variant, [...] He follows both Dr. Nadir Naylor at [facility] and Dr. 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 Completed definitive radiation 36 Lopez in [address] [facility] (Dr. Bennett) in February 2021. Diagnosed with [...] for coordination of care (as documented) and itic-yk-utsa counseling of patient and/or family. Dictated By: Malorie Garcia APRN DD/ [id number] Signed By: <Electronically signed by SHIVAM Garcia> 08/09/22 1204 [facility] Work Phone: Evaluation + Plan note Future Appointments Appointment Date:02/25/2023 09:15:00 AM Scheduled Provider:Miguel PINO MD Location:[facility] Appointment Type:URO Office Visit Diagnostic Tests Pending * PSA Total 02/19/22 [facility] evaluation + Plan note Future Appointments Appointment Date:02/25/2023 09:15:00 AM Scheduled Provider:Miguel PINO MD Location:[facility] Appointment Type:URO Office Visit General [facility] [place] Evaluation noteN/ADept. of Dermatology Evaluation note* Diagnosis Onset Date Resolution Status Cutaneous B-cell lymphoma ac [place] [facility] Work Phone: Evaluation note* Diagnosis Onset Date Resolution Status Cutaneous B-cell lymphoma ac [place] Leukopenia acute [facility] Work Phone: Evaluation note* Diagnosis Onset Date Resolution Status Cutaneous B-cell lymphoma ac [place] Leukopenia acute Cutaneous B-cell lymphoma ac [place] Leukopenia acute [facility] Work Phone: Hospital course Narrative No data available for this section [facility] Hospital Discharge instructions No data available for this section General Surgery [place] Progress note Author Jac Dixon [facility] December 18, 2021 9:27am Note Date/Time December 18, 2021 8:50a m [facility] [place] [address] Rad Onc Follow Up Note - OP Signed Patient: Macario Farfan MR#: [id number] : 1955 Acct:[id number] Age/Sex: 66 / M Type: REG RCR [...] signed by Jac Dixon MD> 12/18/21 0927 [facility] Work Phone: Progress note No data available for this section [facility] reason for referral (narrative)* Name Reason for referral NA NA Dept. 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 Summary Purpose Family History No Family History Records FoundNo Family History Records FoundNo Family History Records FoundNo Family History Records FoundNo Family History Records FoundNo Family History Records Found Advance Directives No Advanced Directives Records Found Advance Directive Response Recorded Date/ Time Advance Directives No February 03 8:20am Additional Source Comments Care Teams (unrecognized sec tion and content) Team Status: Active Member Role Status Dates Erendira Hill Primary Care Provider Active Team Status: Inactive Member Role Status Dates Erendira Hill Primary Care Provide r, Attending Provider Active Start: February 04, 2024 End: February 04, 2024 Team Status: Active Member Role Status Dates Jac Dixon MD Active Star t: February 17, 2024 Nadir Naylor MD Referring Provider Active St art: February 17, 2024 NON STAFF Primary Care Provider Active Start: February 17, 2024 Della Marie APRN Attending Provider Active Start: February 17, 2024 Team Status: Inactive Member Role Status Dates Della Marie APRN Attending Provider Active Start: February 17, 2024 End: February 17, 2024 Erendira Hill Primary Care Provider Active Sta rt: February 17, 2024 End: February 17, 2024 Team Status: Active Member Role Status Dates Jac Dixon MD Attending Provider Active Nadir Naylor MD Referring Provider Active NON STAFF Primary Care Provider Active Team Status: Active Member Role Status Dates NON STAFF Primary Care Provider Active Team Status: Active Member Role Status Dates Jac Dixon MD Attending Provider Active Start: February 04, 2024 Nadir Naylor MD Referring Provider Active St art: February 04, 2024 NON STAFF Primary Care Provider Active Start: February 04, 2024 Goals (unrecognized section and content) Goals may be documented in a n alternate section No data available for this sectionGoals may be documented in an alternate section No data available for this sectionGoals may be documented in an alternate sectionGoals may be documented in an alternate section (unrecognized sect ion and content) No Status Records FoundNo Status Records FoundNo Status Records FoundNo Status Records FoundNo Status Records FoundNo Status Records Found INFORMATION SOURCE (unrecogn ized section and content) DATE CREATED AUTHOR 11/15/2022 [facility] DATE CREATED AUTHOR 'S ORGANIZ ATION 05/13/2023 [facility] DATE CREATED AUTHOR AUTHOR'S ORGANIZ ATION 02/20/2024 Twan Gutierrez [facility] DATE CREATED AUTHOR AUTHOR'S ORGANIZ ATION 02/20/2024 [facility] DATE CREATED AUTHOR AUTHOR'S ORGANIZ ATION 04/06/2024 [facility] DATE CREATED AUTHOR AUTHOR'S ORGANIZ ATION 04/22/2024 [facility] FOR RECORDS PERTAINING TO PATIENTS WHO ARE [...] BE BASED ON THE PRIMARY CLINICAL RECORDS. [facility] [employer] [facility]. provides no warranty or guarantee of the accuracy or completeness of information in this document.
[2024-05-11 08:48] LABS: Bilirubin Urine NEGATIVE (NEGATIVE); Blood Urine TRACE-I (NEGATIVE); Clarity Urine CLEAR (CLEAR); Color Urine YELLOW (YELLOW); Glucose Urine UA >=1000 mg/dL (NEGATIVE); Ketones Urine TRACE mg/dL (NEGATIVE); Leukocyte Esterase Urine NEGATIVE (NEGATIVE); Nitrite Urine NEGATIVE (NEGATIVE); Protein Urine TRACE mg/dL (NEG/TRACE); Specific Gravity Urine >=1.030 (1.005-1.025)
[2024-05-11 08:51] LABS: Urine Microscopic Indicated YES
[2024-05-11 09:05] LABS: Creatinine Urine Random 168.39 mg/dL (20.00-300.00); Microalbum Creatinine Ratio Ur 68.8 mg/g (0.0-29.9); Microalbumin Urine Random 11.6 mg/dL (<=30.0)
[2024-05-11 09:05] LABS: Chol HDL Ratio 3.1; Cholesterol 142 mg/dL (<=200); HDL Cholesterol 46 mg/dL (40-60); LDL Cholesterol Calculated 76.8 mg/dL; Triglycerides 96 mg/dL (<=150); VLDL CHOLESTEROL 19.2 mg/dL
[2024-05-11 09:08] LABS: Bacteria Urine TRACE #/HPF (NONE SEEN); Crystals Seen? None Seen #/HPF (None Seen); Mucus Urine LARGE (NONE SEEN); Squamous Epithelial Cell Urine FEW #/LPF (NONE/RARE)
[2024-05-11 09:09] LABS: Cast Seen? NONE SEEN #/LPF (NONE SEEN)
[2024-05-11 09:18] LABS: Prostate Specific Antigen Scrn 1.32 ng/mL (<=4.00)
== END 2024-05-11 08:02 | disposition home or self-care (01) ==
LOC: LAB 08:03
PROVIDERS: PCP Nurse Practitioner; Visit Provider Nurse Practitioner
DX: E78.2 Mixed hyperlipidemia (principal); E11.9 Type 2 diabetes mellitus without complications; I10 Essential (primary) hypertension; Z12.5 Encounter for screening for malignant neoplasm of prostate; R82.90 Unspecified abnormal findings in urine
CPT/HCPCS: 36415; 80061; 81001; 82043; 82570; 87086; 87186; G0103